=== PATIENT | male | born 1975 | race Caucasian/White ===

== ENCOUNTER 2019-07-25 14:35 | Outpatient (RCR) | payer MEDICAID, SELFPAY ==
[2019-07-25 15:05] VITALS: BP 118/90; PULSE 136; RESP 16; TEMP 37.4; BMI 20.5
--- NOTE | 2019-07-25 16:42 | PCM.WC.HP ---
(1) Diabetic ulcer of right foot with fat layer exposed Status: Acute Current Visit: Yes Code(s): E11.621 - Type 2 diabetes mellitus with foot ulcer; L97.512 - Non-pressure chronic ulcer of other part of right foot with fat layer exposed (2) Abscess of right foot Status: Acute Current Visit: Yes Code(s): L02.611 - Cutaneous abscess of right foot (3) Type 1 diabetes mellitus Status: Acute Current Visit: Yes Qualifiers: Diabetes mellitus complication status: with neurologic complications Diabetes mellitus complication detail: with polyneuropathy Qualified Code(s): E10.42 - Type 1 diabetes mellitus with diabetic polyneuropathy Code(s): E10.9 - Type 1 diabetes mellitus without complications (4) Tobacco abuse Status: Acute Current Visit: Yes Code(s): Z72.0 - Tobacco use (5) PVD (peripheral vascular disease) Status: Acute Current Visit: Yes Code(s): I73.9 - Peripheral vascular disease, unspecified (6) Cellulitis of right foot Status: Acute Current Visit: Yes Code(s): L03.115 - Cellulitis of right lower limb History of Present Illness Date of Service: 07/25/19 Chief Complaint: DFU with abscess and cellulitis right foot History of Wound: This is a 44-year-old white male who presents to the wound healing center today with complaint of diabetic foot ulcer to the right foot for the past couple of weeks that recently opened yesterday. He has a past medical history as listed above consistent that of uncontrolled type 1 diabetes mellitus currently being managed by an product responsibility liaison in [facility]. He was referred by his primary care provider. The patient states that he noted an ulceration on his right foot a couple weeks ago, however over the past couple of days it has been getting more reddened and tender and had opened up yesterday. He does state that due to his history of neuropathy he does not have sensation to his bilateral feet. He states that he followed up with his primary care who referred him to the wound center today. The patient does note that he does not wear diabetic shoes and that recently a couple months ago he started wearing a new pair shoes [employer] Jordans that have been more narrow and constricting on his feet. He states that yesterday he noted redness and warmth around the ulcer on his right foot. He denies any systemic signs of infection such as fever, chills, fatigue, nausea, or vomiting. He denies any [id number] treatment. He denies any other aggravating relieving factors. All other systems reviewed and negative with exception of those listed above. Past Medical History Allergies/Adverse Reactions: Allergies No Known Allergies Allergy (Verified 07/25/19 15:18) Home Medications: Ambulatory Orders Medication Instructions Recorded Gabapentin [Neurontin] 90 mg PO TID 07/25/19 Insulin Lispro [Admelog] See Protocol SQ TID PRN 07/25/19 Triceba 16 units SQ DAILY 07/25/19 Smoking Status: Current every day smoker Review of Systems Constitutional: Denies: Chills, Fever, Weight Change Eyes: Denies: Pain, Vision Change HEENT: Denies: Difficulty Hearing, Difficulty Swallowing, Sinus Congestion Cardiovascular: Denies: Chest Pain, Palpitations Respiratory: Denies: Cough, Shortness of Breath Gastrointestinal: Denies: Diarrhea, Nausea, Vomiting Genitourinary: Denies: Dysuria, Hematuria Skin: Reports: Wounds - see HPI Endocrine: Denies: Heat/ Cold Intolerance, Polydipsia, Polyuria Hematologic/ Lymphatic: Denies: Easy Bruising, Easy Bleeding - Physical Exam Vital Signs Temp Pulse Resp BP 99.3 F H 136 H 16 118/90 H 07/25/19 15:05 07/25/19 15:05 07/25/19 15:05 07/25/19 15:05 General: Alert, Oriented x3, Cooperative, No apparent distress HEENT: PERRLA, EOMI Oral: Moist Mucosa Neck: Supple Lungs: Clear to auscultation Cardiovascular: Regular rate Abdomen: Soft, Non Tender Extremities: No clubbing, No cyanosis, No edema, Peripheral Pulses Normal Skin: Ulcer/ Wound - Diabetic foot ulceration present to right lateral foot with fluctuance, tenderness, and surrounding erythema noted, center of the ulceration is open and draining purulent discharge, surrounding tissue is fluctuant consistent with that of an abscess, also surrounding area is erythematous and warm to touch consistent with cellulitis, no streaking noted at this time Wound Measurements and Assessment WC - Nurse 1 - General Ulcer Measurement Start: 07/25/19 15:04 Freq: Status: Active Protocol: Activity Type Activity Date Activity User E-Sign Co-Sign Detail Recorded Client Recorded Date Recorded By Document 07/25/19 15:05 BMF [id number] 07/25/19 15:15 [facility] 07/25/19 15:05 Wound Center Nurse 1 [Ulcer Assessment] #1- R LATERAL FOOT -Combined with other wound No -Current Size (cm) - Length 1.5 -Current Size (cm) - Width 1.6 -Current Size (cm) - Depth 0.1 -Total Square Cm 2.40 -Date of Last Picture (Recall this 07/25/19 field) -Photo Taken Yes -Epithelialization None Present -Tunneling No -Undermining/Tunneling No -Circular Undermining No -Exudate Amt Small -Exudate Type Purulent -Wound Margin Distinct, Outline Attached -Granulation Amt None Present (0 %) -Slough/Fibrin Yes -Necrosis Amt Large (67-100%) -Necrotic Tissue Type Eschar -Texture (Shanti-wound Skin Appearance) Assessed, Localized Edema ,Scarring -Moisture (Shanti-wound Skin Appearance Assessed ) -Color (Shanti-wound Skin Appearance) Assessed, Erythema -Temperature (Shanti-wound Skin No Abnormality Appearance) (Pt Warm) -Tenderness on Palpation (Shanti-wound Yes Skin Appearance) -Ulcer Cleansing Rinsed/ Irrigated with Saline -Foul Odor after Cleansing No -Anesthetic Used 5% Lidocaine Gel [Edema Assessment] -Lower Limb Edema Present Yes -Right Calf (cm) 33 -Right Ankle (cm) 20.5 -Left Calf (cm) 32.3 -Left Ankle (cm) 20.2 WC - Nurse 2 - General Ulcer CM Notes Start: 07/25/19 15:04 Freq: Status: Active Protocol: Activity Type Activity Date Activity User E-Sign Co-Sign Detail Recorded Client Recorded Date Recorded By Document 07/25/19 15:36 [id number] 07/25/19 15:38 07/25/19 15:36 Wound Center Nurse 2 [Procedure/Treatment] 2-right plantar -Time 15:55 -Correct Patient No -Correct Side, Site, Position No -Correct Procedure No -Procedure Performed No -Post Debridement Size (cm) - Length 1 -Post Debridement Size (cm) - Width 1 -Post Debridement Size (cm) - Depth 0.1 -Total Square Cm 1 -Wound/Ulcer Outcome Not Healed #1- R LATERAL FOOT -Time 15:37 -Correct Patient Yes -Correct Side, Site, Position Yes -Correct Procedure Yes -Procedure Performed Yes -Type of Procedure Debridement -Clinical Debridement Subcutaneous -Post Debridement Size (cm) - Length 1.5 -Post Debridement Size (cm) - Width 3.5 -Post Debridement Size (cm) - Depth 1.3 -Total Square Cm 5.25 -Wound/Ulcer Outcome Not Healed -Ulcer Cleansing Rinsed/ Irrigated with Saline -Foul Odor after Cleansing No -Bioengineered Tissue No -Bleeding Controlled with Pressure -Offloading Yes -Type of Offloading Surgical Shoe -Treatment Response Procedure Tolerated Well [See Physician Procedure note for Specifics] Pain Scale: 0-10 Numeric [Pain] -Is Patient Pain Free? Yes Neurological: Neuro grossly intact Psych/Mental Status: Normal Affect, Appropriate, Alert and oriented to time, place, person, mood and affect Debridement Note Post-Debridement Measurements/Treatment WC - Nurse 2 - General Ulcer CM Notes Start: 07/25/19 15:04 Freq: Status: Active Protocol: Activity Type Activity Date Activity User E-Sign Co-Sign Detail Recorded Client Recorded Date Recorded By Document 07/25/19 15:36 [id number] 07/25/19 15:38 DON 07/25/19 15:36 Wound Center Nurse 2 2-right plantar -Time 15:55 -Correct Patient No -Correct Side, Site, Position No -Correct Procedure No -Procedure Performed No -Post Debridement Size (cm) - Length 1 -Post Debridement Size (cm) - Width 1 -Post Debridement Size (cm) - Depth 0.1 -Total Square Cm 1 -Wound/Ulcer Outcome Not Healed #1- R LATERAL FOOT -Time 15:37 -Correct Patient Yes -Correct Side, Site, Position Yes -Correct Procedure Yes -Procedure Performed Yes -Type of Procedure Debridement -Clinical Debridement Subcutaneous -Post Debridement Size (cm) - Length 1.5 -Post Debridement Size (cm) - Width 3.5 -Post Debridement Size (cm) - Depth 1.3 -Total Square Cm 5.25 -Wound/Ulcer Outcome Not Healed -Ulcer Cleansing Rinsed/ Irrigated with Saline -Foul Odor after Cleansing No -Bioengineered Tissue No -Bleeding Controlled with Pressure -Offloading Yes -Type of Offloading Surgical Shoe -Treatment Response Procedure Tolerated Well Pain Scale: 0-10 Numeric Is Patient Pain Free? Yes Wound debrided: Diabetic foot ulcer Laterality: Right Type of Debridement: Excisional debridement Anesthesia Used: 4% Lidocaine Solution Depth: in the subcutaneous layer Percentage of wound debrided: 100 Instrument Used: 3mm curette Tissue Removed: Slough and devitalized tissue Severity: Fat Layer Exposed Amount of bleeding with debridement: Mild Bleeding Controlled with: Pressure Patient tolerated procedure well Assessment/Plan Active Problems Diabetic ulcer of right foot with fat layer exposed (Acute) Abscess of right foot (Acute) Type 1 diabetes mellitus (Acute) Tobacco abuse (Acute) PVD (peripheral vascular disease) (Acute) Cellulitis of right foot (Acute) Assessment: See above diagnoses Plan: The patient was seen and examined at the wound center today and was updated on the plan of care. A subcutaneous debridement was performed today. The patient tolerated the procedure well. The patients wound care will consist of: Application of silver cell daily over the diabetic foot ulcer with abscess and iodine to the plantar callused ulceration. Wound cultures were collected. X-ray of the foot ordered. Baseline bloodwork ordered. Vascular studies ordered. Patient given offloading postop shoe and instructed on the importance of offloading. Instructed on the importance of following up for diabetic shoes. Given information on following up with product responsibility liaison. Patient also started on Augmentin twice daily for 14 days and instructed patient that if any worsening of symptoms and if redness extends past the margins outlined on his foot from the cellulitis, that he should immediately go to the emergency department. Discussed red flag symptoms requiring urgent medical attention. Patient also educated on the options of pharmacologic management for his smoking cessation and to follow-up with PCP regarding this. Patient verbalized understanding. Patient educated on the importance of diet on wound healing and instructed to increase protein and vitamin C intake. Patient verbalized understanding. Patient will follow up at wound healing center in one week with transfer of care to podiatry due to the nature of his wound or sooner if needed. This note was generated with [employer] dictation software. It may contain incorrect words, spelling, and punctuation that were not noted in checking the note before signing. Code Visit Office Visits / Consults: [id number] OV L4 New [id number]: [id number] Bella subq tissue 20 sq cm/<
[2019-07-26 17:02] LABS: M R Staph aureus DNA By PCR Negative (Negative); Probe Check PASS; Specimen Processing Control PASS; Staph aureus DNA By PCR NEGATIVE (Negative)
== END 2019-07-27 23:59 ==
LOC: WC 14:35
PROVIDERS: PCP Nurse Practitioner Family; Referring Provider Nurse Practitioner Family; Visit Provider Nurse Practitioner Family
DX: E10.621 Type 1 diabetes mellitus with foot ulcer (principal); L97.512 Non-pressure chronic ulcer of other part of right foot with fat layer exposed; L02.611 Cutaneous abscess of right foot; L03.115 Cellulitis of right lower limb; E10.65 Type 1 diabetes mellitus with hyperglycemia; E10.51 Type 1 diabetes mellitus with diabetic peripheral angiopathy without gangrene; I73.9 Peripheral vascular disease, unspecified; F17.200 Nicotine dependence, unspecified, uncomplicated; Z79.4 Long term (current) use of insulin; Z79.899 Other long term (current) drug therapy
CPT/HCPCS: 11042; 87070; 87075; 87077; 87186; 87205; 87640; 99213; G0463

== ENCOUNTER 2019-08-21 09:30 | Outpatient (RCR) | payer MEDICAID, SELFPAY ==
[2019-07-28 01:12] VITALS: BP 118/90; PULSE 136; RESP 16; TEMP 37.4
[2019-07-31 11:43] VITALS: BP 114/72; PULSE 101; RESP 20; TEMP 36.5; BMI 20.5
--- NOTE | 2019-07-31 12:28 | PCM.WC.PN ---
(1) Edema of right lower extremity Status: Chronic Current Visit: Yes Code(s): R60.0 - Localized edema (2) Ulcer of right foot with fat layer exposed Status: Chronic Current Visit: Yes Code(s): L97.512 - Non-pressure chronic ulcer of other part of right foot with fat layer exposed (3) Pain of right lower extremity Status: Chronic Current Visit: Yes Code(s): M79.604 - Pain in right leg (4) Type 1 diabetes mellitus Status: Chronic Current Visit: Yes Qualifiers: Code(s): E10.9 - Type 1 diabetes mellitus without complications (5) PVD (peripheral vascular disease) Status: Suspected Current Visit: Yes Code(s): I73.9 - Peripheral vascular disease, unspecified (6) Cellulitis of right foot Status: Acute Current Visit: Yes Code(s): L03.115 - Cellulitis of right lower limb (7) Venous insufficiency of right leg Status: Chronic Current Visit: Yes Code(s): I87.2 - Venous insufficiency (chronic) (peripheral) Type of Wound Date of Service: 07/31/19 Chief Complaint: Right foot ulcer and cellulitis History of Wound: This is a 44-year-old white male who presents to the wound healing center today with complaint of diabetic foot ulcer to the right foot for the past couple of weeks. He has a past medical history as listed above consistent that of uncontrolled type 1 diabetes mellitus currently being managed by an gas processing plant operator in [facility]. He was referred by his primary care provider. He takes Augmentin and doxycycline as prescribed by Jamshid Pineda, clinical nurse practitioner. He has reduced swelling and redness and he denies odor. He does state that due to his history of neuropathy he does not have some altered sensation to his bilateral feet. He denies fever, chill, nausea, vomiting, loss of appetite. He did not get any of his vascular testing completed yet. He did obtain a foot x-ray at [facility]. He did not obtain his recommended lab work yet. He did not get his dressing supplies yet and asked for help getting this set up. Progress of Wound: improving - Physical Exam Vital Signs Temp Pulse Resp BP 97.7 F L 101 H 20 H 114/72 07/31/19 11:43 07/31/19 11:43 07/31/19 11:43 07/31/19 11:43 General: Alert, Oriented x3, Cooperative, No apparent distress Extremities: No cyanosis, Capillary Refill Less than 3 Seconds - All digits right foot, No Calf Tenderness - Negative Tyrell and Patel sign right, Diminished Peripheral Pulses - 2 out of 4 DP and 1 out of 4 PT, right, Edema - Right lower extremity and foot Skin: Ulcer/ Wound - His erythema has resolved and there is no streaking. There is no purulence on expression. The lateral foot ulcer site does probe to deep muscular tissue and not directly to the bone. The sub-fifth metatarsal head ulcer site does not probe to deep structures. His skin in general is atrophic, thin and with diminished hair to the foot. He does have hair on his leg. There is no odor. There is no mulugeta necrosis. Wound Measurements and Assessment WC - Nurse 1 - General Ulcer Measurement Start: 07/31/19 11:43 Freq: Status: Active Protocol: Activity Type Activity Date Activity User E-Sign Co-Sign Detail Recorded Client Recorded Date Recorded By Document 07/31/19 11:43 DL [id number] 07/31/19 11:52 DL 07/31/19 11:43 Wound Center Nurse 1 [Ulcer Assessment] 2-right plantar -Current Size (cm) - Length 0.7 -Current Size (cm) - Width 0.7 -Current Size (cm) - Depth 0.1 -Total Square Cm 0.49 -Photo Taken No -Exudate Amt None Present -Exudate Type Serosanguineous -Wound Margin Thickened -Granulation Amt None Present (0 %) -Necrosis Amt Large (67-100%) -Necrotic Tissue Type Eschar -Structure Exposed N/A -Texture (Shanti-wound Skin Appearance) Localized Edema -Moisture (Shanti-wound Skin Appearance Dry/Scaly ) -Color (Shanti-wound Skin Appearance) Erythema -Temperature (Shanti-wound Skin No Abnormality Appearance) (Pt Warm) -Tenderness on Palpation (Shanti-wound Yes Skin Appearance) -Ulcer Cleansing Rinsed/ Irrigated with Saline -Foul Odor after Cleansing No -Anesthetic Used 4% Lidocaine Solution,5% Lidocaine Gel #1- R LATERAL FOOT -Current Size (cm) - Length 2.5 -Current Size (cm) - Width 1.5 -Current Size (cm) - Depth 0.7 -Total Square Cm 3.75 -Photo Taken No -Exudate Amt Small -Exudate Type Serosanguineous -Wound Margin Distinct, Outline Attached -Granulation Amt Medium (34-66%) -Granulation Quality [place] -Necrosis Amt Medium (34-66%) -Necrotic Tissue Type Adherent Slough -Structure Exposed N/A -Texture (Shanti-wound Skin Appearance) Localized Edema -Moisture (Shanti-wound Skin Appearance Dry/Scaly ) -Color (Shanti-wound Skin Appearance) Erythema -Temperature (Shanti-wound Skin No Abnormality Appearance) (Pt Warm) -Tenderness on Palpation (Shanti-wound No Skin Appearance) -Ulcer Cleansing Rinsed/ Irrigated with Saline -Foul Odor after Cleansing No -Anesthetic Used 4% Lidocaine Solution,5% Lidocaine Gel WC - Nurse 2 - General Ulcer CM Notes Start: 07/31/19 11:43 Freq: Status: Active Protocol: Activity Type Activity Date Activity User E-Sign Co-Sign Detail Recorded Client Recorded Date Recorded By Document 07/31/19 12:12 DON [id number] 07/31/19 12:15 DON 07/31/19 12:12 Wound Center Nurse 2 [Procedure/Treatment] 2-right plantar -Time 12:13 -Correct Patient Yes -Correct Side, Site, Position Yes -Correct Procedure Yes -Procedure Performed Yes -Type of Procedure Debridement -Clinical Debridement Subcutaneous -Post Debridement Size (cm) - Length 0.7 -Post Debridement Size (cm) - Width 0.8 -Post Debridement Size (cm) - Depth 0.5 -Total Square Cm 0.56 -Wound/Ulcer Outcome Not Healed -Ulcer Cleansing Rinsed/ Irrigated with Saline -Foul Odor after Cleansing No -Bioengineered Tissue No -Bleeding Controlled with Pressure -Offloading Yes -Type of Offloading Wedge Shoe -Treatment Response Procedure Tolerated Well #1- R LATERAL FOOT -Time 12:13 -Correct Patient Yes -Correct Side, Site, Position Yes -Correct Procedure Yes -Procedure Performed Yes -Type of Procedure Debridement -Clinical Debridement Subcutaneous -Post Debridement Size (cm) - Length 2.5 -Post Debridement Size (cm) - Width 1.5 -Post Debridement Size (cm) - Depth 1.0 -Total Square Cm 3.75 -Wound/Ulcer Outcome Not Healed -Ulcer Cleansing Rinsed/ Irrigated with Saline -Foul Odor after Cleansing No -Bioengineered Tissue No -Bleeding Controlled with Pressure -Offloading Yes -Type of Offloading Wedge Shoe -Treatment Response Procedure Tolerated Well [See Physician Procedure note for Specifics] Pain Scale: 0-10 Numeric [Pain] -Is Patient Pain Free? Yes Musculoskeletal: No Tenderness to Palpation of Joints or Extremities, Muscle Wasting, - - Dorsal contracture lesser toes with prominent metatarsal heads and fifth metatarsal head, right. No bogginess or fluctuance on palpation to the ulcer and shanti-ulcer sites Neurological: - - Lack of epicritic sensation light touch is noted right foot Psych/Mental Status: Normal Affect, Appropriate Debridement Note Post-Debridement Measurements/Treatment WC - Nurse 2 - General Ulcer CM Notes Start: 07/31/19 11:43 Freq: Status: Active Protocol: Activity Type Activity Date Activity User E-Sign Co-Sign Detail Recorded Client Recorded Date Recorded By Document 07/31/19 12:12 DON [id number] 07/31/19 12:15 DON 07/31/19 12:12 Wound Center Nurse 2 2-right plantar -Time 12:13 -Correct Patient Yes -Correct Side, Site, Position Yes -Correct Procedure Yes -Procedure Performed Yes -Type of Procedure Debridement -Clinical Debridement Subcutaneous -Post Debridement Size (cm) - Length 0.7 -Post Debridement Size (cm) - Width 0.8 -Post Debridement Size (cm) - Depth 0.5 -Total Square Cm 0.56 -Wound/Ulcer Outcome Not Healed -Ulcer Cleansing Rinsed/ Irrigated with Saline -Foul Odor after Cleansing No -Bioengineered Tissue No -Bleeding Controlled with Pressure -Offloading Yes -Type of Offloading Wedge Shoe -Treatment Response Procedure Tolerated Well #1- R LATERAL FOOT -Time 12:13 -Correct Patient Yes -Correct Side, Site, Position Yes -Correct Procedure Yes -Procedure Performed Yes -Type of Procedure Debridement -Clinical Debridement Subcutaneous -Post Debridement Size (cm) - Length 2.5 -Post Debridement Size (cm) - Width 1.5 -Post Debridement Size (cm) - Depth 1.0 -Total Square Cm 3.75 -Wound/Ulcer Outcome Not Healed -Ulcer Cleansing Rinsed/ Irrigated with Saline -Foul Odor after Cleansing No -Bioengineered Tissue No -Bleeding Controlled with Pressure -Offloading Yes -Type of Offloading Wedge Shoe -Treatment Response Procedure Tolerated Well Pain Scale: 0-10 Numeric Is Patient Pain Free? Yes Wound debrided: plantar sub 5th metatarsal head ulcer Laterality: Right Wound Grade/Stage: grade 1 Type of Debridement: Excisional debridement Anesthesia Used: 5% Lidocaine Gel Depth: in the subcutaneous layer Percentage of wound debrided: 100 Instrument Used: #15 blade Tissue Removed: fibrous, devitalized subcuteaneous, biofilm, slough Severity: Fat Layer Exposed Amount of bleeding with debridement: Mild Bleeding Controlled with: Pressure Patient tolerated procedure well - Additional Wound Wound debrided: dorsal lateral forefoot Laterality: Left Wound Grade/Stage: grade 1 Type of Debridement: Excisional debridement Anesthesia Used: 5% Lidocaine Gel Depth: in the subcutaneous layer Percentage of wound debrided: 100 Instrument Used: #15 blade Tissue Removed: fibrous, devitalized subcuteaneous, biofilm, slough Severity: Fat Layer Exposed Amount of bleeding with debridement: Mild Bleeding Controlled with: Pressure Patient tolerated procedure: Patient tolerated procedure well Assessment/Plan Active Problems Type 1 diabetes mellitus (Chronic) Cellulitis of right foot (Acute) Edema of right lower extremity (Chronic) Ulcer of right foot with necrosis of muscle (Chronic) Ulcer of right foot with fat layer exposed (Chronic) Pain of right lower extremity (Chronic) Venous insufficiency of right leg (Chronic) Assessment: See above diagnoses Plan: The patient was seen and examined at the wound center today and was updated on the plan of care. A subcutaneous debridement was performed today. The patient tolerated the procedure well. The patients wound care will consist of: Application of silver cell daily to each ulcer site covered with additional 4 x 4 gauze, roll gauze, and further secured with tape. It is also okay to apply an Bernard wrap or Tubigrip for lower extremity compression. Wound cultures were collected. X-ray of the foot ordered. This was obtained at an outside facility and the report was read as negative for acute osseous destruction or soft tissue emphysema or fractures. I have requested the CD for image review. Baseline bloodwork ordered and this was not completed yet; he was encouraged to do so. Vascular studies ordered; this was not completed yet and he was advised to proceed forward with scheduling. Patient given offloading postop shoe and instructed on the importance of offloading. This shoe does not fit him properly. He relates his sister bought him a forefoot wedge offloading surgical shoe that he has at home. He was advised to wear this instead and to bring this in next week for modification. We will see if his gait is appropriate in this. If he is stable he can proceed with a wedge offloading shoe. If not, a cam walker boot can also be considered. Instructed on the importance of following up for diabetic shoes in the future to prevent pressure and additional ulcer formation.. Given information on following up with gas processing plant operator. He plans to see Dr. Sherman. Patient also started on Augmentin twice daily for 14 days and instructed patient that if any worsening of symptoms and if redness extends past the margins outlined on his foot from the cellulitis, that he should immediately go to the emergency department. Jamshid Pineda, clinical nurse practitioner also placed him on doxycycline per culture review. He was advised to complete these course and it appears his clinical infections have significantly resolved. Patient also educated on the options of pharmacologic management for his smoking cessation and to follow-up with PCP regarding this. Patient verbalized understanding. Patient educated on the importance of diet on wound healing and instructed to increase protein and vitamin C intake in addition to eating a whole food well-balanced diet. He is amendable to proceed with a nutrition consultation after we get through his other initial screening test. This patient verbalized understanding. Patient will follow up at wound healing center in one week. I answered all of his questions.
[2019-08-09 15:04] VITALS: BP 137/66; PULSE 95; RESP 16; TEMP 36.8; BMI 20.5
[2019-08-09 17:23] LABS: Hematocrit 45.5 % (40-54); Hemoglobin 14.6 g/dL (13.0-16.5); Mean Corp Hgb Conc 32.1 g/dL (32-36); Mean Corpuscular Hgb 28.7 pg (27.0-32.0); Mean Corpuscular Volume 89.6 fL (80-94); Mean Platelet Vol. 9.8 fl (6.2-12.0); Platelet Count 383 K/mm3 (150-450); RBC Distribution Width CV 14.5 % (11.6-14.6); RBC Distribution Width SD 47.4 fl (35.1-43.9); Red Blood Count 5.08 M/mm3 (4.6-6.2); White Blood Count 6.7 K/mm3 (4.4-11.0)
[2019-08-09 17:52] LABS: Erythrocyte Sedimentation Rate 20 mm/hr (0-15)
[2019-08-09 18:11] LABS: Hemoglobin A1c 9.4 % (4.2-6.3)
--- NOTE | 2019-08-09 18:21 | PCM.WC.PN ---
(1) Type 1 diabetes mellitus Status: Chronic Current Visit: Yes Qualifiers: Diabetes mellitus complication status: with skin complications Diabetes mellitus complication detail: with foot ulcer Qualified Code(s): E10.621 - Type 1 diabetes mellitus with foot ulcer; L97.509 - Non-pressure chronic ulcer of other part of unspecified foot with unspecified severity Code(s): E10.9 - Type 1 diabetes mellitus without complications (2) Ulcer of right foot with fat layer exposed Status: Chronic Current Visit: Yes Code(s): L97.512 - Non-pressure chronic ulcer of other part of right foot with fat layer exposed (3) Ulcer of right foot with necrosis of muscle Status: Chronic Current Visit: Yes Code(s): L97.513 - Non-pressure chronic ulcer of other part of right foot with necrosis of muscle (4) Diabetic ulcer of right foot with fat layer exposed Status: Acute Current Visit: Yes Qualifiers: Diabetic foot ulcer location: midfoot Diabetes mellitus type: type 1 Qualified Code(s): E10.621 - Type 1 diabetes mellitus with foot ulcer; L97.412 - Non-pressure chronic ulcer of right heel and midfoot with fat layer exposed Code(s): E11.621 - Type 2 diabetes mellitus with foot ulcer; L97.512 - Non-pressure chronic ulcer of other part of right foot with fat layer exposed Type of Wound Date of Service: 08/11/19 Chief Complaint: Right foot ulcer and cellulitis History of Wound: This is a 44-year-old white male who presents to the wound healing center today with complaint of diabetic foot ulcer to the right foot for the past couple of weeks. He has a past medical history as listed above consistent that of uncontrolled type 1 diabetes mellitus currently being managed by an crop puller in [facility]. He was referred by his primary care provider. He takes Augmentin and doxycycline as prescribed by Jamshid Pineda, clinical nurse practitioner. He has reduced swelling and redness and he denies odor. He does state that due to his history of neuropathy he does not have some altered sensation to his bilateral feet. He denies fever, chill, nausea, vomiting, loss of appetite. He did not get any of his vascular testing completed yet. He did obtain a foot x-ray at [facility]. He did not obtain his recommended lab work yet. He did not get his dressing supplies yet and asked for help getting this set up. Progress of Wound: This is a courtesy visit for Dr. Parada. Deep is here for a follow up of diabetic foot ulcers of his right foot. He did do xray which did not indicate any acute osteomyelitis but he has not scheduled with endocrinology or completed vascular testing or completed labs. He has been wearing a wedge offloading shoe and dressing his wounds. He is nearly finished with antibiotics - doxycycline and augmentin. He notes improvement in his ulcers and denies any fever, chills, increased drainage or increased pain. - Physical Exam Vital Signs Temp Pulse Resp BP 98.2 F 95 16 137/66 H 08/09/19 15:04 08/09/19 15:04 08/09/19 15:04 08/09/19 15:04 General: Alert, Oriented x3, Cooperative, No apparent distress HEENT: Atraumatic, Normocephalic Oral: Moist Mucosa Extremities: No edema Skin: Ulcer/ Wound Wound Measurements and Assessment WC - Nurse 1 - General Ulcer Measurement Start: 07/31/19 11:43 Freq: Status: Active Protocol: Activity Type Activity Date Activity User E-Sign Co-Sign Detail Recorded Client Recorded Date Recorded By Document 08/09/19 15:04 [facility] [id number] 08/09/19 15:09 [facility] 08/09/19 15:04 Wound Center Nurse 1 [Ulcer Assessment] 2-right plantar -Combined with other wound No -Current Size (cm) - Length 0.3 -Current Size (cm) - Width 0.4 -Current Size (cm) - Depth 0.1 -Total Square Cm 0.12 -Photo Taken No -Epithelialization None Present -Tunneling No -Undermining/Tunneling No -Circular Undermining No -Exudate Amt None Present -Granulation Amt None Present (0 %) -Slough/Fibrin Yes -Necrosis Amt Small (1-33%) -Necrotic Tissue Type Adherent Slough -Texture (Shanti-wound Skin Appearance) Callus,Scarring -Moisture (Shanti-wound Skin Appearance Assessed,Dry/ ) Scaly -Color (Shanti-wound Skin Appearance) Assessed -Temperature (Shanti-wound Skin No Abnormality Appearance) (Pt Warm) -Tenderness on Palpation (Shanti-wound No Skin Appearance) -Ulcer Cleansing Rinsed/ Irrigated with Saline -Foul Odor after Cleansing No -Anesthetic Used 4% Lidocaine Solution #1- R LATERAL FOOT -Combined with other wound No -Current Size (cm) - Length 0.5 -Current Size (cm) - Width 0.5 -Current Size (cm) - Depth 0.2 -Total Square Cm 0.25 -Photo Taken No -Epithelialization None Present -Tunneling No -Undermining/Tunneling No -Circular Undermining No -Exudate Amt Small -Exudate Type Serosanguineous -Wound Margin Distinct, Outline Attached -Granulation Amt Medium (34-66%) -Granulation Quality Red -Slough/Fibrin Yes -Necrosis Amt Medium (34-66%) -Necrotic Tissue Type Adherent Slough -Texture (Shanti-wound Skin Appearance) Assessed, Scarring -Moisture (Shanti-wound Skin Appearance Assessed ) -Color (Shanti-wound Skin Appearance) Assessed, Erythema -Temperature (Shanti-wound Skin No Abnormality Appearance) (Pt Warm) -Tenderness on Palpation (Shanti-wound Yes Skin Appearance) -Ulcer Cleansing Rinsed/ Irrigated with Saline -Foul Odor after Cleansing No -Anesthetic Used 4% Lidocaine Solution WC - Nurse 2 - General Ulcer CM Notes Start: 07/31/19 11:43 Freq: Status: Active Protocol: Activity Type Activity Date Activity User E-Sign Co-Sign Detail Recorded Client Recorded Date Recorded By Document 08/09/19 16:04 DV [id number] 08/09/19 16:16 DV 08/09/19 16:04 Wound Center Nurse 2 [Procedure/Treatment] 2-right plantar -Time 16:04 -Correct Patient Yes -Correct Side, Site, Position Yes -Correct Procedure Yes -Procedure Performed Yes -Type of Procedure Debridement -Clinical Debridement Subcutaneous -Post Debridement Size (cm) - Length 0.3 -Post Debridement Size (cm) - Width 0.3 -Post Debridement Size (cm) - Depth 0.2 -Total Square Cm 0.09 -Wound/Ulcer Outcome Not Healed -Ulcer Cleansing Rinsed/ Irrigated with Saline -Foul Odor after Cleansing No -Bioengineered Tissue No -Bleeding Controlled with Pressure -Offloading Yes -Treatment Response Procedure Tolerated Well #1- R LATERAL FOOT -Time 16:05 -Correct Patient Yes -Correct Side, Site, Position Yes -Correct Procedure Yes -Procedure Performed Yes -Type of Procedure Debridement -Clinical Debridement Subcutaneous -Post Debridement Size (cm) - Length 0.5 -Post Debridement Size (cm) - Width 0.5 -Post Debridement Size (cm) - Depth 0.9 -Total Square Cm 0.25 -Wound/Ulcer Outcome Not Healed -Ulcer Cleansing Rinsed/ Irrigated with Saline -Foul Odor after Cleansing No -Bioengineered Tissue No -Bleeding Controlled with Pressure -Offloading Yes -Treatment Response Procedure Tolerated Well [See Physician Procedure note for Specifics] Pain Scale: 0-10 Numeric [Pain] -Is Patient Pain Free? Yes Psych/Mental Status: Normal Affect, Appropriate Debridement Note Post-Debridement Measurements/Treatment WC - Nurse 2 - General Ulcer CM Notes Start: 07/31/19 11:43 Freq: Status: Active Protocol: Activity Type Activity Date Activity User E-Sign Co-Sign Detail Recorded Client Recorded Date Recorded By Document 07/31/19 12:12 DON [id number] 07/31/19 12:15 Document 08/09/19 16:04 DV [id number] 08/09/19 16:16 DV 07/31/19 08/09/19 12:12 16:04 Wound Center Nurse 2 2-right plantar -Time 12:13 16:04 -Correct Patient Yes Yes -Correct Side, Site, Position Yes Yes -Correct Procedure Yes Yes -Procedure Performed Yes Yes -Type of Procedure Debridement Debridement -Clinical Debridement Subcutaneous Subcutaneous -Post Debridement Size (cm) - Length 0.7 0.3 -Post Debridement Size (cm) - Width 0.8 0.3 -Post Debridement Size (cm) - Depth 0.5 0.2 -Total Square Cm 0.56 0.09 -Wound/Ulcer Outcome Not Healed Not Healed -Ulcer Cleansing Rinsed/ Rinsed/ Irrigated with Irrigated with Saline Saline -Foul Odor after Cleansing No No -Bioengineered Tissue No No -Bleeding Controlled with Pressure Pressure -Offloading Yes Yes -Type of Offloading Wedge Shoe -Treatment Response Procedure Procedure Tolerated Well Tolerated Well #1- R LATERAL FOOT -Time 12:13 16:05 -Correct Patient Yes Yes -Correct Side, Site, Position Yes Yes -Correct Procedure Yes Yes -Procedure Performed Yes Yes -Type of Procedure Debridement Debridement -Clinical Debridement Subcutaneous Subcutaneous -Post Debridement Size (cm) - Length 2.5 0.5 -Post Debridement Size (cm) - Width 1.5 0.5 -Post Debridement Size (cm) - Depth 1.0 0.9 -Total Square Cm 3.75 0.25 -Wound/Ulcer Outcome Not Healed Not Healed -Ulcer Cleansing Rinsed/ Rinsed/ Irrigated with Irrigated with Saline Saline -Foul Odor after Cleansing No No -Bioengineered Tissue No No -Bleeding Controlled with Pressure Pressure -Offloading Yes Yes -Type of Offloading Wedge Shoe -Treatment Response Procedure Procedure Tolerated Well Tolerated Well Pain Scale: 0-10 Numeric Is Patient Pain Free? Yes Yes Wound debrided: right plantar Laterality: Right Wound Grade/Stage: Grade 1 Type of Debridement: Excisional debridement Anesthesia Used: 4% Lidocaine Solution, 5% Lidocaine Gel Depth: Down to and including healthy tissue, in the subcutaneous layer Percentage of wound debrided: 100 Instrument Used: 3mm curette Tissue Removed: yellow slough, devitalized tissue Severity: Fat Layer Exposed Amount of bleeding with debridement: Mild Bleeding Controlled with: Compression and gauze Patient tolerated procedure well - Additional Wound Wound debrided: right lateral foot Laterality: Right Wound Grade/Stage: Grade 2 Type of Debridement: Excisional debridement Anesthesia Used: 4% Lidocaine Solution Depth: Down to and including healthy tissue, in the subcutaneous layer, to muscle Percentage of wound debrided: 100 Instrument Used: 3mm curette Tissue Removed: yellow slough, devitalized tissue Severity: Fat Layer Exposed Amount of bleeding with debridement: Mild Bleeding Controlled with: Compression and gauze Patient tolerated procedure: Patient tolerated procedure well Assessment/Plan Active Problems Diabetic ulcer of right foot with fat layer exposed (Acute) Type 1 diabetes mellitus (Chronic) Cellulitis of right foot (Acute) Edema of right lower extremity (Chronic) Ulcer of right foot with necrosis of muscle (Chronic) Ulcer of right foot with fat layer exposed (Chronic) Pain of right lower extremity (Chronic) Venous insufficiency of right leg (Chronic) Assessment: See above diagnoses Plan: The patient was seen and examined at the wound center today and was updated on the plan of care. A subcutaneous debridement was performed today. The patient tolerated the procedure well. The patients wound care will consist of: Application of silver cell daily to each ulcer site covered with additional 4 x 4 gauze, roll gauze, and further secured with tape. It is also okay to apply an Bernard wrap or Tubigrip for lower extremity compression. Xray of foot reviewed. This was obtained at an outside facility and the report was read as negative for acute osseous destruction or soft tissue emphysema or fractures. Requested the CD for image review. Baseline bloodwork ordered and this was drawn today. Vascular studies ordered; this was not completed yet and he was advised to proceed forward with scheduling. He was advised to wear forefoot offloading wedge shoe and to bring this in next week for modification. If not, a cam walker boot can also be considered. Instructed on the importance of following up for diabetic shoes in the future to prevent pressure and additional ulcer formation.. Given information on following up with crop puller. He plans to see Dr. Sherman. Patient instructed to complete antibiotics. Instructed patient that if any worsening of symptoms and if redness extends past the margins outlined on his foot from the cellulitis, that he should immediately go to the emergency department. Patient also educated on the options of pharmacologic management for his smoking cessation and to follow-up with PCP regarding this. Patient verbalized understanding. Patient educated on the importance of diet on wound healing and instructed to increase protein and vitamin C intake in addition to eating a whole food well-balanced diet. He is amendable to proceed with a nutrition consultation after we get through his other initial screening test. This patient verbalized understanding. Patient will follow up at wound healing center in one week.
[2019-08-09 18:23] LABS: CRP < 2.90 mg/L (0.0-3.0); Prealbumin 19.1 mg/dL (20.0-40.0)
--- NOTE | 2019-08-21 10:01 | VDLE_ITS ---
Reason For Study: Pain RIGHT LEFT CFV is compressible, spontaneous, phasic, CFV is compressible, spontaneous, phasic, competent and demonstrates normal competent, and demonstrates normal augmentation. augmentation. FV is compressible, spontaneous, phasic, FV is compressible, spontaneous, phasic, competent and demonstrates normal competent and demonstrates normal augmentation. augmentation. POP V is compressible, spontaneous, phasic, POP V is compressible, spontaneous, phasic, competent and demonstrates normal competent and demonstrates normal augmentation. augmentation. T/P Trunk is compressible. T/P Trunk is compressible. PTV is compressible. PTV is compressible. RT PerV is compressible. LT PerV is compressible. SFJ is competent and measures 0.53 x 0.63 cm. SFJ is INCOMPETENT and measures 0.55 x 0.46 GSV proximal thigh measures 0.33 x 0.35 cm. cm. GSV above knee is competent. GSV proximal thigh measures 0.29 x 0.32 cm. GSV at knee measures 0.40 x 0.47 cm. GSV at knee measures 0.28 x 0.27 cm. GSV is INCOMPETENT at knee for greater than GSV is competent throughout. 0.5 seconds. SSV at junction is competent and measures GSV below knee is competent. 0.32 x 0.35 cm. SSV at junction is competent and measures 0.23 x 0.25 cm. Procedure Exam performed in department. A preliminary report was called and/or faxed to . Interpretation Summary Deep veins of the lower extremities are bilaterally patent and compressible segmentally. There is no evidence of deep vein thrombosis on either side. Valvular competence appears intact within the proximal deep venous systems bilaterally. The great saphenous veins appear bilaterally patent and compressible segmentally. The right sapheno-femoral junction is competent . The left sapheno-femoral junction is incompetent . The right great saphenous vein appears competent above the knee. The right great saphenous vein is incompetent at knee level. The right great saphenous vein appears competent below the knee. The left great saphenous vein appears segmentally competent. Small saphenous veins are patent and competent bilaterally. Ordering Physician: Jamshid Pineda Referring Physician: Viridiana Lebron Performed By: Anna Arnold RVT
--- NOTE | 2019-08-21 10:02 | ART_ITS ---
Reason For Study: Ulcer Procedure A bilateral lower extremity continuous wave Doppler with analog waveform analysis,segmental pressures,and ankle brachial indexes without exercise. Left Segmental Pressures Left brachial= 126mmHg. Left posterior tibial artery = 139mmHg. Left dorsalis pedis artery = 143mmHg. Left digit = 114 mmHg. The left dorsalis pedis waveforms are triphasic. The left posterior tibial artery waveforms are triphasic. Right Segmental Pressures Right brachial= 131mmHg. Right posterior tibial artery = 138mmHg. Right dorsalis pedis artery = 133mmHg. Right digit = 101 mmHg. The right dorsalis pedis waveforms are triphasic. The right posterior tibial artery waveforms are triphasic. Indices The right ankle brachial index by the dorsalis pedis is 1.02. The right ankle brachial index by the posterior tibial artery is 1.05. The right digital-brachial index is 0.77. The left ankle brachial index by the dorsalis pedis is 1.09. The left ankle brachial index by the posterior tibial artery is 1.06. The left digital-brachial index is 0.87. Interpretation Summary Triphasic Doppler waveforms are noted at ankle level bilaterally. Pulse-volume recording waveform amplitudes appear diminished at digital level on the right, but satisfactory at all other levels bilaterally. Resting ankle-brachial indices are normal bilaterally. Digital-brachial indices are normal bilaterally. There is no evidence of significant arterial occlusive disease in the lower extremities bilaterally. Ordering Physician: Jamshid Pineda Referring Physician: Viridiana Lebron Performed By: Anna Arnold RVT
[2019-08-21 11:02] VITALS: BMI 20.5
[2019-08-21 11:07] VITALS: BP 128/80; PULSE 107; RESP 14; TEMP 36.8; BMI 20.5
--- NOTE | 2019-08-21 11:37 | PCM.WC.PN ---
(1) Edema of right lower extremity Status: Chronic Current Visit: Yes Code(s): R60.0 - Localized edema (2) Ulcer of right foot with fat layer exposed Status: Resolved Current Visit: Yes Code(s): L97.512 - Non-pressure chronic ulcer of other part of right foot with fat layer exposed (3) Pain of right lower extremity Status: Chronic Current Visit: Yes Code(s): M79.604 - Pain in right leg (4) Type 1 diabetes mellitus Status: Chronic Current Visit: Yes Qualifiers: Diabetes mellitus complication status: with skin complications Diabetes mellitus complication detail: with foot ulcer Qualified Code(s): E10.621 - Type 1 diabetes mellitus with foot ulcer; L97.509 - Non-pressure chronic ulcer of other part of unspecified foot with unspecified severity Code(s): E10.9 - Type 1 diabetes mellitus without complications (5) PVD (peripheral vascular disease) Status: Ruled-out Current Visit: Yes Code(s): I73.9 - Peripheral vascular disease, unspecified (6) Cellulitis of right foot Status: Resolved Current Visit: Yes Code(s): L03.115 - Cellulitis of right lower limb Type of Wound Date of Service: 08/21/19 Chief Complaint: Right foot ulcer and cellulitis History of Wound: This is a 44-year-old white male who presents to the wound healing center today with complaint of diabetic foot ulcer to the right foot for the past couple of weeks. He has a past medical history as listed above consistent that of uncontrolled type 1 diabetes mellitus currently being managed by an diesel mechanic apprentice in [facility]. He completed a course of Augmentin and doxycycline as prescribed by Jamshid Pineda, clinical nurse practitioner. He has reduced swelling and redness and he denies odor. He denies drainage the past couple of days. He denies fever, chill, nausea, vomiting, redness, odor. He had his noninvasive vascular studies completed this morning. He would like to review the results. He relates he does the cooking at his house and going to a nutrition referral is not for him. Progress of Wound: Healed - Physical Exam Vital Signs Temp Pulse Resp BP 98.3 F 107 H 14 128/80 H 08/21/19 11:07 08/21/19 11:07 08/21/19 11:07 08/21/19 11:07 General: Alert, Oriented x3, Cooperative, No apparent distress Extremities: No cyanosis, Capillary Refill Less than 3 Seconds, No Calf Tenderness, Diminished Peripheral Pulses, Edema Skin: Ulcer/ Wound - Full epithelialization is noted. No purulence, erythema, streaking, odor, infection Wound Measurements and Assessment WC - Nurse 1 - General Ulcer Measurement Start: 07/31/19 11:43 Freq: Status: Active Protocol: Activity Type Activity Date Activity User E-Sign Co-Sign Detail Recorded Client Recorded Date Recorded By Document 08/21/19 11:02 CS [id number] 08/21/19 11:07 CS 08/21/19 11:02 Wound Center Nurse 1 [Ulcer Assessment] 2-right plantar -Combined with other wound No -Current Size (cm) - Length 0.1 -Current Size (cm) - Width 0.1 -Current Size (cm) - Depth 0.1 -Total Square Cm 0.01 -Photo Taken No -Epithelialization None Present -Tunneling No -Undermining/Tunneling No -Circular Undermining No -Necrotic Tissue Type Eschar -Temperature (Shanti-wound Skin No Abnormality Appearance) (Pt Warm) -Tenderness on Palpation (Shanti-wound No Skin Appearance) -Ulcer Cleansing Rinsed/ Irrigated with Saline -Foul Odor after Cleansing No -Anesthetic Used 4% Lidocaine Solution #1- R LATERAL FOOT -Combined with other wound No -Current Size (cm) - Length 0.1 -Current Size (cm) - Width 0.1 -Current Size (cm) - Depth 0.1 -Total Square Cm 0.01 -Photo Taken No -Epithelialization None Present -Tunneling No -Undermining/Tunneling No -Circular Undermining No -Necrotic Tissue Type Eschar -Temperature (Shanti-wound Skin No Abnormality Appearance) (Pt Warm) -Tenderness on Palpation (Shanti-wound No Skin Appearance) -Ulcer Cleansing Rinsed/ Irrigated with Saline -Foul Odor after Cleansing No -Anesthetic Used 4% Lidocaine Solution [Edema Assessment] -Lower Limb Edema Present NA WC - Nurse 2 - General Ulcer CM Notes Start: 07/31/19 11:43 Freq: Status: Active Protocol: Activity Type Activity Date Activity User E-Sign Co-Sign Detail Recorded Client Recorded Date Recorded By Document 08/21/19 11:28 JF [id number] 08/21/19 11:34 JF 08/21/19 11:28 Wound Center Nurse 2 [Procedure/Treatment] 2-right plantar -Correct Patient No -Correct Side, Site, Position No -Correct Procedure No -Procedure Performed No -Post Debridement Size (cm) - Length 0 -Post Debridement Size (cm) - Width 0 -Post Debridement Size (cm) - Depth 0 -Total Square Cm 0 -Wound/Ulcer Outcome Healed- Epithelialized #1- R LATERAL FOOT -Correct Patient No -Correct Side, Site, Position No -Correct Procedure No -Procedure Performed No -Post Debridement Size (cm) - Length 0 -Post Debridement Size (cm) - Width 0 -Post Debridement Size (cm) - Depth 0 -Total Square Cm 0 -Wound/Ulcer Outcome Healed- Epithelialized [See Physician Procedure note for Specifics] Pain Scale: 0-10 Numeric [Pain] -Is Patient Pain Free? Yes Musculoskeletal: No Tenderness to Palpation of Joints or Extremities, Muscle Wasting Neurological: - - Lack of epicritic sensation Psych/Mental Status: Normal Affect, Appropriate Debridement Note Post-Debridement Measurements/Treatment WC - Nurse 2 - General Ulcer CM Notes Start: 07/31/19 11:43 Freq: Status: Active Protocol: Activity Type Activity Date Activity User E-Sign Co-Sign Detail Recorded Client Recorded Date Recorded By Document 07/31/19 12:12 [id number] 07/31/19 12:15 Document 08/09/19 16:04 DV [id number] 08/09/19 16:16 DV Document 08/21/19 11:28 [id number] 08/21/19 11:34 07/31/19 08/09/19 08/21/19 12:12 16:04 11:28 Wound Center Nurse 2 2-right plantar -Time 12:13 16:04 -Correct Patient Yes Yes No -Correct Side, Site, Position Yes Yes No -Correct Procedure Yes Yes No -Procedure Performed Yes Yes No -Type of Procedure Debridement Debridement -Clinical Debridement Subcutaneous Subcutaneous -Post Debridement Size (cm) - Length 0.7 0.3 0 -Post Debridement Size (cm) - Width 0.8 0.3 0 -Post Debridement Size (cm) - Depth 0.5 0.2 0 -Total Square Cm 0.56 0.09 0 -Wound/Ulcer Outcome Not Healed Not Healed Healed- Epithelialized -Ulcer Cleansing Rinsed/ Rinsed/ Irrigated with Irrigated with Saline Saline -Foul Odor after Cleansing No No -Bioengineered Tissue No No -Bleeding Controlled with Pressure Pressure -Offloading Yes Yes -Type of Offloading Wedge Shoe -Treatment Response Procedure Procedure Tolerated Well Tolerated Well #1- R LATERAL FOOT -Time 12:13 16:05 -Correct Patient Yes Yes No -Correct Side, Site, Position Yes Yes No -Correct Procedure Yes Yes No -Procedure Performed Yes Yes No -Type of Procedure Debridement Debridement -Clinical Debridement Subcutaneous Subcutaneous -Post Debridement Size (cm) - Length 2.5 0.5 0 -Post Debridement Size (cm) - Width 1.5 0.5 0 -Post Debridement Size (cm) - Depth 1.0 0.9 0 -Total Square Cm 3.75 0.25 0 -Wound/Ulcer Outcome Not Healed Not Healed Healed- Epithelialized -Ulcer Cleansing Rinsed/ Rinsed/ Irrigated with Irrigated with Saline Saline -Foul Odor after Cleansing No No -Bioengineered Tissue No No -Bleeding Controlled with Pressure Pressure -Offloading Yes Yes -Type of Offloading Wedge Shoe -Treatment Response Procedure Procedure Tolerated Well Tolerated Well Pain Scale: 0-10 Numeric Is Patient Pain Free? Yes Yes Yes Wound debrided: plantar and lateral foot Laterality: Right No debridement was completed today - healed today Assessment/Plan Active Problems Diabetic ulcer of right foot with fat layer exposed (Acute) Type 1 diabetes mellitus (Chronic) Edema of right lower extremity (Chronic) Ulcer of right foot with necrosis of muscle (Chronic) Pain of right lower extremity (Chronic) Venous insufficiency of right leg (Chronic) Assessment: See above diagnoses Plan: The patient was seen and examined at the wound center today and was updated on the plan of care. Debridement was not performed today because the ulcer site has healed. He was advised to discontinue dressing care. He was advised to continue with his forefoot offloading shoe for an additional week and then transition to a properly fitted shoe and lengthen with. He will return to the wound healing center in 2 weeks for healed wound check. He obtained his noninvasive vascular studies this morning and had triphasic waveforms and normal ABIs. It is noted his hemoglobin A1c was 9.4% and he is at high risk for re-ulceration other medical complications due to his elevated glucose levels. I recommended he follows up as scheduled with diesel mechanic apprentice, Dr. Sherman and also his primary care physician. I also recommended a nutrition referral and he defers today. I answered all his questions. To monitor his foot closely for reoccurrence of the ulcer or infection. He was advised to call the Center as soon as possible if these things are noted.
== END 2019-08-27 23:59 ==
LOC: WC 09:30
PROVIDERS: PCP Nurse Practitioner Family; Referring Provider Nurse Practitioner Family; Visit Provider Nurse Practitioner Family
DX: E10.621 Type 1 diabetes mellitus with foot ulcer (principal); L97.512 Non-pressure chronic ulcer of other part of right foot with fat layer exposed; L97.513 Non-pressure chronic ulcer of other part of right foot with necrosis of muscle; L03.115 Cellulitis of right lower limb; E10.65 Type 1 diabetes mellitus with hyperglycemia; E10.40 Type 1 diabetes mellitus with diabetic neuropathy, unspecified; R60.0 Localized edema; I87.2 Venous insufficiency (chronic) (peripheral); Z79.4 Long term (current) use of insulin; Z79.899 Other long term (current) drug therapy
CPT/HCPCS: 11042; 83036; 84134; 85027; 85652; 86140; 93923; 93970; 99213; G0463

== ENCOUNTER 2019-09-11 08:05 | Outpatient (RCR) | payer MEDICAID, SELFPAY ==
[2019-08-28 00:53] VITALS: BP 128/80; PULSE 107; RESP 14; TEMP 36.8
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
== END 2019-09-26 23:59 ==
LOC: WC 08:05
PROVIDERS: PCP Nurse Practitioner Family; Referring Provider Nurse Practitioner Family; Visit Provider Podiatrist
DX: Z09 Encounter for follow-up examination after completed treatment for conditions other than malignant neoplasm (principal); M79.89 Other specified soft tissue disorders; E10.9 Type 1 diabetes mellitus without complications

== ENCOUNTER 2019-10-23 09:01 | Outpatient (RCR) | payer MEDICAID, SELFPAY ==
[2019-09-27 00:17] VITALS: BP 128/80; PULSE 107; RESP 14; TEMP 36.8
[2019-10-09 10:31] VITALS: BMI 20.5
[2019-10-23 09:15] VITALS: RESP 18; TEMP 36.8; BMI 20.5
--- NOTE | 2019-10-23 12:14 | HP.PCM_ITS ---
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: Acute Current Visit: Yes Code(s): L97.512 - Non-pressure chronic ulcer of other part of right foot with fat layer exposed (2) Type 1 diabetes mellitus Status: Chronic Current Visit: Yes Qualifiers: Code(s): E10.9 - Type 1 diabetes mellitus without complications (3) Tobacco abuse Status: Acute Current Visit: Yes Code(s): Z72.0 - Tobacco use (4) Cellulitis of right foot Status: Resolved Current Visit: Yes Code(s): L03.115 - Cellulitis of right lower limb (5) Pain of right lower extremity Status: Chronic Current Visit: Yes Code(s): M79.604 - Pain in right leg History of Present Illness Date of Service: 10/23/19 Chief Complaint: Right foot ulcer and cellulitis History of Wound: This is a 44-year-old white male was seen in clinic today for a return right foot ulcer. He relates it was red and painful last week and then started draining this past Monday. He went to [facility] in which she relates foot x-rays and blood cultures were obtained. He is not sure if he had additional blood work drawn or cultures of the wound itself. He relates he is more active this past week when his kids were in town. He usually wears [employer] shoes. He denies other specific injuries. He denies current fever, chill, nausea, vomiting. He rates his pain as an 8 out of 10 sharp. He relates his blood sugars are usually around 110-115. However, he relates he ate a snack real late last night and his blood sugar was 306 mg/dL this morning. He relates he is taking amoxicillin and doxycycline. Past Medical History Past Medical History: Chronic Problems Type 1 diabetes mellitus (Chronic) Edema of right lower extremity (Chronic) Pain of right lower extremity (Chronic) Venous insufficiency of right leg (Chronic) Past Medical History: Depression. Right upper extremity injuries and surgical repair Surgical History: - Allergies/Adverse Reactions: Allergies No Known Allergies Allergy (Verified 07/25/19 15:18) Home Medications: Ambulatory Orders Medication Instructions Recorded Gabapentin [Neurontin] 90 mg PO TID 07/25/19 Insulin Lispro [Admelog] See Protocol SQ TID PRN 07/25/19 Triceba 16 units SQ DAILY 07/25/19 doxycycline monohydrate 100 mg 100 mg PO BID #20 cap 07/26/19 capsule Lives: With Family Smoking Status: Current every day smoker Review of Systems Constitutional: Denies: Chills, Fever Cardiovascular: Denies: Chest Pain, Claudication Respiratory: Denies: Cough, Shortness of Breath Gastrointestinal: Denies: Nausea, Vomiting Musculoskeletal: Reports: Foot Pain Skin: Reports: Skin Changes, Wounds Neurological: Denies: Numbness, Tingling - Physical Exam Vital Signs Temp Pulse Resp BP 98.2 F 107 H 18 128/80 H 10/23/19 09:15 09/27/19 00:17 10/23/19 09:15 09/27/19 00:17 General: Alert, Oriented x3, Cooperative, No apparent distress HEENT: Atraumatic Extremities: No cyanosis, Capillary Refill Less than 3 Seconds, No Calf Tenderness, Diminished Peripheral Pulses, Edema Skin: Ulcer/ Wound - No purulence, odor, necrosis, eschar. There is erythema that seems to be decreased intensity per the patient and also location per the marked area on his foot. There is a callus sub-fifth metatarsal head which upon debridement there is a skin discontinuity with some sero-purulent drainage expressed. After irrigation and debridement this is no longer noted. There is no direct probe to bone. There is also skin discontinuity to the dorsal lateral fifth metatarsal head area. There is no interdigital maceration. Adjacent skin is hairless and atrophic. Wound Measurements and Assessment WC - Nurse 1 - General Ulcer Measurement Start: 10/23/19 09:10 Freq: Status: Active Protocol: Activity Type Activity Date Activity User E-Sign Co-Sign Detail Recorded Client Recorded Date Recorded By Document 10/23/19 09:15 DV [id number] 10/23/19 09:31 DV 10/23/19 09:15 Wound Center Nurse 1 [Ulcer Assessment] #3 Right Lateral Foot -Combined with other wound No -Current Size (cm) - Length 1.6 -Current Size (cm) - Width 1.0 -Current Size (cm) - Depth 0.2 -Total Square Cm 1.60 -Date of Last Picture (Recall this 10/23/19 field) -Photo Taken Yes -Epithelialization None Present -Tunneling No -Undermining/Tunneling No -Circular Undermining No -Classification - Thickness Full Thickness without Exposed Support Structure -Classification - Gonzales Grading ( Grade 3 Diabetic Ulcer) -Exudate Amt Medium -Exudate Type Serosanguineous -Wound Margin Indistinct, Non -Visible -Granulation Amt None Present (0 %) -Granulation Quality N/A -Slough/Fibrin Yes -Necrosis Amt Large (67-100%) -Necrotic Tissue Type Adherent Slough -Structure Exposed None/Limited to Skin Breakdown -Texture (Shanti-wound Skin Appearance) Assessed, Scarring -Moisture (Shanti-wound Skin Appearance Assessed, ) Weeping -Color (Shanti-wound Skin Appearance) Assessed, Erythema -Temperature (Shanti-wound Skin No Abnormality Appearance) (Pt Warm) -Tenderness on Palpation (Shanti-wound No Skin Appearance) -Ulcer Cleansing Rinsed/ Irrigated with Saline -Foul Odor after Cleansing No -Anesthetic Used 5% Lidocaine Gel [Edema Assessment] -Lower Limb Edema Present No WC - Nurse 2 - General Ulcer CM Notes Start: 10/23/19 09:10 Freq: Status: Active Protocol: Activity Type Activity Date Activity User E-Sign Co-Sign Detail Recorded Client Recorded Date Recorded By Document 10/23/19 10:01 DON [id number] 10/23/19 10:06 DON 10/23/19 10:01 Wound Center Nurse 2 [Procedure/Treatment] 4-RIGHT PLANTAR 5TH METATARSAL -Time 10:01 -Correct Patient Yes -Correct Side, Site, Position Yes -Correct Procedure Yes -Procedure Performed Yes -Type of Procedure Debridement -Clinical Debridement Subcutaneous -Post Debridement Size (cm) - Length 0.3 -Post Debridement Size (cm) - Width 0.4 -Post Debridement Size (cm) - Depth 0.2 -Total Square Cm 0.12 -Wound/Ulcer Outcome Not Healed -Ulcer Cleansing Rinsed/ Irrigated with Saline -Foul Odor after Cleansing No -Bioengineered Tissue No -Bleeding Controlled with Pressure -Offloading Yes -Type of Offloading Surgical Shoe -Treatment Response Procedure Tolerated Well #3 Right Lateral Foot -Time 10:01 -Correct Patient Yes -Correct Side, Site, Position Yes -Correct Procedure Yes -Procedure Performed Yes -Type of Procedure Debridement -Clinical Debridement Subcutaneous -Post Debridement Size (cm) - Length 2.1 -Post Debridement Size (cm) - Width 1.1 -Post Debridement Size (cm) - Depth 0.3 -Total Square Cm 2.31 -Wound/Ulcer Outcome Not Healed -Ulcer Cleansing Rinsed/ Irrigated with Saline -Foul Odor after Cleansing No -Bioengineered Tissue No -Bleeding Controlled with Pressure -Offloading Yes -Type of Offloading Surgical Shoe -Treatment Response Procedure Tolerated Well [See Physician Procedure note for Specifics] Pain Scale: 0-10 Numeric [Pain] -Is Patient Pain Free? Yes Musculoskeletal: No Tenderness to Palpation of Joints or Extremities, Muscle Wasting Neurological: - - Lack of normal epicritic sensation light touch is consistent with neuropathy status Psych/Mental Status: Normal Affect, Appropriate Debridement Note Post-Debridement Measurements/Treatment WC - Nurse 2 - General Ulcer CM Notes Start: 10/23/19 09:10 Freq: Status: Active Protocol: Activity Type Activity Date Activity User E-Sign Co-Sign Detail Recorded Client Recorded Date Recorded By Document 10/23/19 10:01 DON [id number] 10/23/19 10:06 DON 10/23/19 10:01 Wound Center Nurse 2 4-RIGHT PLANTAR 5TH METATARSAL -Time 10:01 -Correct Patient Yes -Correct Side, Site, Position Yes -Correct Procedure Yes -Procedure Performed Yes -Type of Procedure Debridement -Clinical Debridement Subcutaneous -Post Debridement Size (cm) - Length 0.3 -Post Debridement Size (cm) - Width 0.4 -Post Debridement Size (cm) - Depth 0.2 -Total Square Cm 0.12 -Wound/Ulcer Outcome Not Healed -Ulcer Cleansing Rinsed/ Irrigated with Saline -Foul Odor after Cleansing No -Bioengineered Tissue No -Bleeding Controlled with Pressure -Offloading Yes -Type of Offloading Surgical Shoe -Treatment Response Procedure Tolerated Well #3 Right Lateral Foot -Time 10:01 -Correct Patient Yes -Correct Side, Site, Position Yes -Correct Procedure Yes -Procedure Performed Yes -Type of Procedure Debridement -Clinical Debridement Subcutaneous -Post Debridement Size (cm) - Length 2.1 -Post Debridement Size (cm) - Width 1.1 -Post Debridement Size (cm) - Depth 0.3 -Total Square Cm 2.31 -Wound/Ulcer Outcome Not Healed -Ulcer Cleansing Rinsed/ Irrigated with Saline -Foul Odor after Cleansing No -Bioengineered Tissue No -Bleeding Controlled with Pressure -Offloading Yes -Type of Offloading Surgical Shoe -Treatment Response Procedure Tolerated Well Pain Scale: 0-10 Numeric Is Patient Pain Free? Yes Wound debrided: lateral forefoot, sub 5th metatarsal head Laterality: Right Wound Grade/Stage: grade 1 Type of Debridement: Excisional debridement Anesthesia Used: 5% Lidocaine Gel Depth: in the subcutaneous layer Percentage of wound debrided: 100 Instrument Used: #15 blade Tissue Removed: fibrous, devitalized subcutaneous, biofilm, slough Severity: Fat Layer Exposed Amount of bleeding with debridement: Mild Bleeding Controlled with: Pressure Patient tolerated procedure well Assessment/Plan Active Problems Type 1 diabetes mellitus (Chronic) Tobacco abuse (Acute) Pain of right lower extremity (Chronic) Ulcer of right foot with fat layer exposed (Acute) Assessment: See above diagnoses Plan: I reviewed and discussed his case with this [id number] encounter today. Subcutaneous excisional debridement was performed as noted panel. After review was performed. A deep wound culture was obtained including aerobic, anaerobic, acid-fast. I will request his medical records from [facility]. I recommend updating his CBC, ESR, CMP, and C-reactive protein and these were ordered today. To continue on his oral antibiotics that were started when he went to the urgent center. He understands these may be updated after his cultures develop. To offload the ulcer site by returning to his forefoot offloading surgical shoe and put weight on his heel. He already has this in place today. To avoid excessive walking activity. To elevate the limb at rest. We had a serious discussion about better glycemic control. His last hemoglobin A1c was over 9. He was advised to continue to follow-up with his consumer loan specialist and to maintain accountability for dietary choices at home. His x-ray pictures will be requested from the other facility and also the report will be requested. It is noted he had noninvasive vascular studies earlier this year and these demonstrated adequate flow for lower extremity healing. I answered all his questions. He is advised to follow-up in clinic in 1 week or call sooner if he has any questions or concerns. He was also advised to present to the emergency room or call the office immediately if he has worsening status or progressive local or systemic signs of infection.
[2019-10-23 14:52] LABS: Absolute Lymphocyte Count 1.25 X10^3/uL (0.83-4.51); Absolute Neutrophil Count 4.1 X10^3/uL (2.0-7.7); Basophil# 0.06 X10^3/uL; Basophil% 0.9 % (0-1); Eosinophil# 0.13 X10^3/uL; Hemoglobin 16.2 g/dL (13.0-16.5); Lymphocyte # 1.25 X10^3/ul (4.0); Lymphocyte % 19.5 % (19-41); Mean Corp Hgb Conc 32.4 g/dL (32-36); Mean Corpuscular Hgb 29.8 pg (27.0-32.0); Mean Corpuscular Volume 91.9 fL (80-94); Mean Platelet Vol. 10.6 fl (6.2-12.0); Monocyte# 0.83 X10^3/uL; Monocyte% 12.9 % (0-10); NRBC Flagged by Analyzer 0 % (0-5); Neutrophil # 4.12 X10^3/uL (2.7-7.7); Neutrophil % 64.2 % (47-70); Platelet Count 347 K/mm3 (150-450); RBC Distribution Width CV 15.3 % (11.6-14.6); RBC Distribution Width SD 51.1 fl (35.1-43.9); Red Blood Count 5.44 M/mm3 (4.6-6.2); White Blood Count 6.4 K/mm3 (4.4-11.0)
[2019-10-23 14:55] LABS: Erythrocyte Sedimentation Rate 13 mm/hr (0-15)
[2019-10-23 15:05] LABS: ALB/GLOB Ratio 0.9 RATIO (0.9-2.4); AST(SGOT) 21 U/L (15-37); Alanine Aminotransfer ALT/SGPT 20 U/L (16-61); Albumin, Serum 3.8 g/dL (3.2-5.0); Alkaline Phosphatase 79 U/L (45-117); Anion Gap 6 (5-15); BUN 16 mg/dL (7-18); BUN/Creat Ratio 18.3 RATIO (10-20); Calcium,Total 10.1 mg/dL (8.5-10.1); Chloride 99 mmol/L (98-107); Creatinine, Serum 0.87 mg/dL (0.70-1.30); EST Glomerular Filtration Rate 101 mL/min (>60); Est Glom Filt Rate - Afr Amer 122 mL/min (>60); Estimated Creatinine Clearance 111.23 ml/min; Globulin 4.3 g/dL (2.2-4.2); Glucose 193 mg/dL (74-106); Potassium 4.6 mmol/L (3.5-5.1); Protein, Total 8.1 g/dL (6.4-8.2); Sodium Level 134 mmol/L (136-145)
[2019-10-23 17:30] LABS: M R Staph aureus DNA By PCR Negative (Negative); Probe Check PASS; Specimen Processing Control PASS; Staph aureus DNA By PCR NEGATIVE (Negative)
== END 2019-10-27 23:59 ==
LOC: WC 09:01
PROVIDERS: PCP Nurse Practitioner Family; Referring Provider Podiatrist; Visit Provider Podiatrist
DX: E10.621 Type 1 diabetes mellitus with foot ulcer (principal); L97.512 Non-pressure chronic ulcer of other part of right foot with fat layer exposed; R60.0 Localized edema; I87.2 Venous insufficiency (chronic) (peripheral); Z79.4 Long term (current) use of insulin; F17.200 Nicotine dependence, unspecified, uncomplicated; Z79.899 Other long term (current) drug therapy
CPT/HCPCS: 11042; 80053; 85025; 85652; 86140; 87070; 87075; 87077; 87186; 87205; 87640; 99213; G0463

== ENCOUNTER → 2019-10-29 14:16 | Outpatient (CLI) | payer MEDICAID, SELFPAY ==
[2019-10-29 13:31] VITALS: BMI 20.5
[2019-10-29 15:23] LABS: Microalbumin,Random Urine 21.1 mg/L (NO RANGE EST.); Microalbumin:Creatinine Ratio 9.6 mg/g CRE (<30 mg/g CRE)
[2019-10-29 16:12] LABS: Hemoglobin A1c 10.1 % (3.8-5.6)
== END ==
PROVIDERS: PCP Internal Medicine; Referring Provider Internal Medicine; Visit Provider Internal Medicine
DX: E10.9 Type 1 diabetes mellitus without complications (principal); R00.0 Tachycardia, unspecified
CPT/HCPCS: 36415; 82043; 82570; 83036; 84439; 84443

== ENCOUNTER → 2019-11-01 13:56 | Outpatient (CLI) | payer MEDICAID, SELFPAY ==
[2019-10-30 11:10] VITALS: BMI 20.5
[2019-11-01 16:26] LABS: Amphetamine Urine VISTA NEGATIVE (<1000 ng/mL); Barbiturate Urine VISTA NEGATIVE (< 200 ng/mL); Benzodiazepine Urine VISTA NEGATIVE (< 200 ng/mL); Cocaine Urine VISTA NEGATIVE (< 300 ng/mL); Ecstacy Urine VISTA NEGATIVE (< 500 ng/mL); Methadone Urine VISTA NEGATIVE (< 300 ng/mL); PCP Urine VISTA NEGATIVE (< 25 ng/mL); THC Urine VISTA NEGATIVE (< 50 ng/mL); Vista UDS pH Range 5
== END ==
PROVIDERS: PCP Internal Medicine; Referring Provider Anesthesiology; Visit Provider Anesthesiology
DX: F11.20 Opioid dependence, uncomplicated (principal)
CPT/HCPCS: 80307

== ENCOUNTER 2019-11-13 09:30 | Outpatient (RCR) | payer MEDICAID, SELFPAY ==
[2019-10-28 00:27] VITALS: BP 128/80; PULSE 107; RESP 18; TEMP 36.8
[2019-10-29 13:31] VITALS: BMI 20.5
[2019-10-30 11:10] VITALS: BP 133/73; PULSE 88; RESP 20; TEMP 36.6; BMI 20.5
--- NOTE | 2019-10-30 14:19 | PN.PCM_ITS ---
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: Chronic Code(s): L97.512 - Non-pressure chronic ulcer of other part of right foot with fat layer exposed (2) Hyperglycemia Status: Chronic Code(s): R73.9 - Hyperglycemia, unspecified (3) Malnutrition Status: Chronic Code(s): E46 - Unspecified protein-calorie malnutrition (4) Type 1 diabetes mellitus Status: Chronic Qualifiers: Code(s): E10.9 - Type 1 diabetes mellitus without complications (5) Tobacco abuse Status: Chronic Code(s): Z72.0 - Tobacco use (6) Cellulitis of right foot Status: Resolved Code(s): L03.115 - Cellulitis of right lower limb Type of Wound Date of Service: 10/30/19 Chief Complaint: Right foot ulcer and cellulitis History of Wound: This is a 44-year-old white male was seen in clinic today for a return right foot ulcer. He relates decreased drainage since last Monday and it is less painful but still considered a moderate level pain. He initially went to [facility] in which she relates foot x-rays and blood cultures were obtained. He is not sure if he had additional blood work drawn or cultures of the wound itself. He relates he is more active this past week when his kids were in town. He usually wears [employer] shoes. He denies other specific injuries. He denies current fever, chill, nausea, vomiting. He rates his pain as an 8 out of 10 sharp. He relates he is taking amoxicillin and doxycycline. He had lab work performed. Progress of Wound: Stable and infection is improving - Physical Exam Vital Signs Temp Pulse Resp BP 98 F 88 20 H 133/73 H 10/30/19 11:10 10/30/19 11:10 10/30/19 11:10 10/30/19 11:10 General: Alert, Oriented x3, Cooperative, No apparent distress HEENT: Atraumatic Extremities: No cyanosis, Capillary Refill Less than 3 Seconds, No Calf Tenderness, Diminished Peripheral Pulses, Edema - Decreased Skin: Ulcer/ Wound - There is some peripheral epithelialization noted and there is no purulent drainage, erythema, or streaking or odor. No deep necrosis. It is still noted at the plantar ulcer probes deep and there is still pain to palpate the ulcer site Wound Measurements and Assessment WC - Nurse 1 - General Ulcer Measurement Start: 10/30/19 11:09 Freq: Status: Active Protocol: Activity Type Activity Date Activity User E-Sign Co-Sign Detail Recorded Client Recorded Date Recorded By Document 10/30/19 11:10 JAYY [id number] 10/30/19 11:12 DL 10/30/19 11:10 Wound Center Nurse 1 [Ulcer Assessment] 4-RIGHT PLANTAR 5TH METATARSAL -Current Size (cm) - Length 0.1 -Current Size (cm) - Width 0.1 -Current Size (cm) - Depth 0.1 -Total Square Cm 0.01 -Photo Taken No -Exudate Amt None Present -Wound Margin Thickened -Granulation Amt Small (1-33%) -Granulation Quality Pale -Necrosis Amt Small (1-33%) -Necrotic Tissue Type Adherent Slough -Structure Exposed N/A -Texture (Shanti-wound Skin Appearance) Callus -Moisture (Shanti-wound Skin Appearance Dry/Scaly ) -Color (Shanti-wound Skin Appearance) No Abnormality -Temperature (Shanti-wound Skin No Abnormality Appearance) (Pt Warm) -Tenderness on Palpation (Shanti-wound No Skin Appearance) -Ulcer Cleansing Rinsed/ Irrigated with Saline -Foul Odor after Cleansing No -Anesthetic Used 4% Lidocaine Solution #3 Right Lateral Foot -Current Size (cm) - Length 1.8 -Current Size (cm) - Width 0.8 -Current Size (cm) - Depth 0.1 -Total Square Cm 1.44 -Photo Taken No -Exudate Amt Small -Exudate Type Serosanguineous -Wound Margin Distinct, Outline Attached -Granulation Amt None Present (0 %) -Necrosis Amt Large (67-100%) -Necrotic Tissue Type Adherent Slough -Structure Exposed N/A -Texture (Shanti-wound Skin Appearance) Scarring -Moisture (Shanti-wound Skin Appearance No Abnormality ) -Color (Shanti-wound Skin Appearance) No Abnormality -Temperature (Shanti-wound Skin No Abnormality Appearance) (Pt Warm) -Tenderness on Palpation (Shanti-wound No Skin Appearance) -Ulcer Cleansing Rinsed/ Irrigated with Saline -Foul Odor after Cleansing No -Anesthetic Used 4% Lidocaine Solution WC - Nurse 2 - General Ulcer CM Notes Start: 10/30/19 11:09 Freq: Status: Active Protocol: Activity Type Activity Date Activity User E-Sign Co-Sign Detail Recorded Client Recorded Date Recorded By Document 10/30/19 12:39 PL [id number] 10/30/19 12:57 PL 10/30/19 12:39 Wound Center Nurse 2 [Procedure/Treatment] 4-RIGHT PLANTAR 5TH METATARSAL -Time 11:15 -Correct Patient Yes -Correct Side, Site, Position Yes -Correct Procedure Yes -Procedure Performed Yes -Type of Procedure Debridement -Clinical Debridement Subcutaneous -Post Debridement Size (cm) - Length 1 -Post Debridement Size (cm) - Width 1 -Post Debridement Size (cm) - Depth 0.6 -Total Square Cm 1 -Wound/Ulcer Outcome Not Healed -Ulcer Cleansing Rinsed/ Irrigated with Saline -Foul Odor after Cleansing No -Bleeding Controlled with Pressure -Treatment Response Procedure Tolerated Well #3 Right Lateral Foot -Time 11:15 -Correct Patient Yes -Correct Side, Site, Position Yes -Correct Procedure Yes -Procedure Performed Yes -Type of Procedure Debridement -Clinical Debridement Subcutaneous -Post Debridement Size (cm) - Length 1.9 -Post Debridement Size (cm) - Width 0.8 -Post Debridement Size (cm) - Depth 0.2 -Total Square Cm 1.52 -Wound/Ulcer Outcome Not Healed -Ulcer Cleansing Rinsed/ Irrigated with Saline -Foul Odor after Cleansing No -Bleeding Controlled with Pressure -Treatment Response Procedure Tolerated Well [See Physician Procedure note for Specifics] Pain Scale: 0-10 Numeric [Pain] -Is Patient Pain Free? Yes Musculoskeletal: No Tenderness to Palpation of Joints or Extremities, Muscle Wasting Neurological: Sensory exam intact to light touch and pain Psych/Mental Status: Normal Affect, Appropriate Debridement Note Post-Debridement Measurements/Treatment WC - Nurse 2 - General Ulcer CM Notes Start: 10/30/19 11:09 Freq: Status: Active Protocol: Activity Type Activity Date Activity User E-Sign Co-Sign Detail Recorded Client Recorded Date Recorded By Document 10/30/19 12:39 PL [id number] 10/30/19 12:57 PL 10/30/19 12:39 Wound Center Nurse 2 4-RIGHT PLANTAR 5TH METATARSAL -Time 11:15 -Correct Patient Yes -Correct Side, Site, Position Yes -Correct Procedure Yes -Procedure Performed Yes -Type of Procedure Debridement -Clinical Debridement Subcutaneous -Post Debridement Size (cm) - Length 1 -Post Debridement Size (cm) - Width 1 -Post Debridement Size (cm) - Depth 0.6 -Total Square Cm 1 -Wound/Ulcer Outcome Not Healed -Ulcer Cleansing Rinsed/ Irrigated with Saline -Foul Odor after Cleansing No -Bleeding Controlled with Pressure -Treatment Response Procedure Tolerated Well #3 Right Lateral Foot -Time 11:15 -Correct Patient Yes -Correct Side, Site, Position Yes -Correct Procedure Yes -Procedure Performed Yes -Type of Procedure Debridement -Clinical Debridement Subcutaneous -Post Debridement Size (cm) - Length 1.9 -Post Debridement Size (cm) - Width 0.8 -Post Debridement Size (cm) - Depth 0.2 -Total Square Cm 1.52 -Wound/Ulcer Outcome Not Healed -Ulcer Cleansing Rinsed/ Irrigated with Saline -Foul Odor after Cleansing No -Bleeding Controlled with Pressure -Treatment Response Procedure Tolerated Well Pain Scale: 0-10 Numeric Is Patient Pain Free? Yes Wound debrided: plantar foot, lateral forefoot Laterality: Right Wound Grade/Stage: grade 1 Type of Debridement: Excisional debridement Anesthesia Used: 5% Lidocaine Gel Depth: in the subcutaneous layer Percentage of wound debrided: 100 Instrument Used: #15 blade Tissue Removed: fibrous, devitalized subcutaneous, biofilm, slough Severity: Fat Layer Exposed Amount of bleeding with debridement: Mild Bleeding Controlled with: Pressure Patient tolerated procedure well Assessment/Plan Assessment: See above diagnoses Plan: I reviewed and discussed his case with this [id number] encounter today. Subcutaneous excisional debridement was performed as noted panel. After review was performed. A deep wound culture was obtained including aerobic, anaerobic, acid-fast. His cultures demonstrated staph lugdenensis. I recommend updating his CBC, ESR, CMP, and C-reactive protein. These results were reviewed with white blood cell count of 6.4, GFR over 60, C-reactive protein of 11.4, MRSA negative, and hemoglobin A1c was 10.1. To continue on his oral antibiotics that were started when he went to the urgent center. To offload the ulcer site by returning to his forefoot offloading surgical shoe and put weight on his heel. He already has this in place today. To avoid excessive walking activity. To elevate the limb at rest. We had a serious discussion about better glycemic control. 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 His x-ray pictures will be requested from the other facility and also the report will be requested. It is noted he had noninvasive vascular studies earlier this year and these demonstrated adequate flow for lower extremity healing. I answered all his questions. He is advised to follow-up in clinic in 1 week or call sooner if he has any questions or concerns. He was also advised to present to the emergency room or call the office immediately if he has worsening status or progressive local or systemic signs of infection.
[2019-11-06 09:43] VITALS: BP 127/85; PULSE 81; RESP 20; TEMP 36.1; BMI 20.5
--- NOTE | 2019-11-06 10:11 | PN.PCM_ITS ---
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: Chronic Current Visit: Yes Code(s): L97.512 - Non-pressure chronic ulcer of other part of right foot with fat layer exposed (2) Hyperglycemia Status: Chronic Current Visit: Yes Code(s): R73.9 - Hyperglycemia, unspecified (3) Malnutrition Status: Chronic Current Visit: Yes Code(s): E46 - Unspecified protein- calorie malnutrition (4) Type 1 diabetes mellitus Status: Chronic Current Visit: Yes Qualifiers: Code(s): E10.9 - Type 1 diabetes mellitus without complications (5) Tobacco abuse Status: Chronic Current Visit: Yes Code(s): Z72.0 - Tobacco use (6) Cellulitis of right foot Status: Resolved Current Visit: Yes Code(s): L03.115 - Cellulitis of right lower limb Type of Wound Date of Service: 11/06/19 Chief Complaint: Right foot ulcer and cellulitis History of Wound: This is a 44-year-old white male was seen in clinic today for a return right foot ulcer. He has moderate pain. He is reduced drainage compared to last week. He wears an offloading wedge shoe while at home and a regular surgical shoe while he is out in the community. He denies fever, chill, nausea, vomiting, redness, streaking or odor. Progress of Wound: Improving and infection clinically resolved - Physical Exam Vital Signs Temp Pulse Resp BP 97 F L 81 20 H 127/85 H 11/06/19 09:43 11/06/19 09:43 11/06/19 09:43 11/06/19 09:43 General: Alert, Oriented x3, Cooperative, No apparent distress Extremities: No cyanosis, Capillary Refill Less than 3 Seconds, No Calf Tenderness, Diminished Peripheral Pulses, Edema Skin: Ulcer/ Wound - Purulence, erythema, streaking, odor, infection. His skin is atrophic and hairless. Wound Measurements and Assessment WC - Nurse 1 - General Ulcer Measurement Start: 10/30/19 11:09 Freq: Status: Active Protocol: Activity Type Activity Date Activity User E-Sign Co-Sign Detail Recorded Client Recorded Date Recorded By Document 11/06/19 09:43 DL [id number] 11/06/19 09:46 DL 11/06/19 09:43 Wound Center Nurse 1 [Ulcer Assessment] 4-RIGHT PLANTAR 5TH METATARSAL -Current Size (cm) - Length 0.3 -Current Size (cm) - Width 0.2 -Current Size (cm) - Depth 0.1 -Total Square Cm 0.06 -Photo Taken No -Exudate Amt None Present -Wound Margin Distinct, Outline Attached -Granulation Amt Small (1-33%) -Granulation Quality [place] -Necrosis Amt None Present (0 %) -Structure Exposed N/A -Texture (Shanti-wound Skin Appearance) Scarring -Moisture (Shanti-wound Skin Appearance Dry/Scaly ) -Color (Shanti-wound Skin Appearance) No Abnormality -Temperature (Shanti-wound Skin No Abnormality Appearance) (Pt Warm) -Tenderness on Palpation (Shanti-wound No Skin Appearance) -Ulcer Cleansing Rinsed/ Irrigated with Saline -Foul Odor after Cleansing No -Anesthetic Used 4% Lidocaine Solution #3 Right Lateral Foot -Current Size (cm) - Length 0.5 -Current Size (cm) - Width 0.5 -Current Size (cm) - Depth 0.1 -Total Square Cm 0.25 -Photo Taken No -Exudate Amt None Present -Wound Margin Thickened -Granulation Amt None Present (0 %) -Necrosis Amt Small (1-33%) -Necrotic Tissue Type Eschar -Structure Exposed N/A -Texture (Shanti-wound Skin Appearance) Scarring -Moisture (Shanti-wound Skin Appearance Dry/Scaly ) -Color (Shanti-wound Skin Appearance) No Abnormality -Temperature (Shanti-wound Skin No Abnormality Appearance) (Pt Warm) -Tenderness on Palpation (Shanti-wound No Skin Appearance) -Ulcer Cleansing Rinsed/ Irrigated with Saline -Foul Odor after Cleansing No -Anesthetic Used 4% Lidocaine Solution Musculoskeletal: No Tenderness to Palpation of Joints or Extremities, Muscle Wasting Neurological: - - Lack of sensation Psych/Mental Status: Normal Affect, Appropriate Debridement Note Post-Debridement Measurements/Treatment WC - Nurse 2 - General Ulcer CM Notes Start: 10/30/19 11:09 Freq: Status: Active Protocol: Activity Type Activity Date Activity User E-Sign Co-Sign Detail Recorded Client Recorded Date Recorded By Document 10/30/19 12:39 PL [id number] 10/30/19 12:57 PL 10/30/19 12:39 Wound Center Nurse 2 4-RIGHT PLANTAR 5TH METATARSAL -Time 11:15 -Correct Patient Yes -Correct Side, Site, Position Yes -Correct Procedure Yes -Procedure Performed Yes -Type of Procedure Debridement -Clinical Debridement Subcutaneous -Post Debridement Size (cm) - Length 1 -Post Debridement Size (cm) - Width 1 -Post Debridement Size (cm) - Depth 0.6 -Total Square Cm 1 -Wound/Ulcer Outcome Not Healed -Ulcer Cleansing Rinsed/ Irrigated with Saline -Foul Odor after Cleansing No -Bleeding Controlled with Pressure -Treatment Response Procedure Tolerated Well #3 Right Lateral Foot -Time 11:15 -Correct Patient Yes -Correct Side, Site, Position Yes -Correct Procedure Yes -Procedure Performed Yes -Type of Procedure Debridement -Clinical Debridement Subcutaneous -Post Debridement Size (cm) - Length 1.9 -Post Debridement Size (cm) - Width 0.8 -Post Debridement Size (cm) - Depth 0.2 -Total Square Cm 1.52 -Wound/Ulcer Outcome Not Healed -Ulcer Cleansing Rinsed/ Irrigated with Saline -Foul Odor after Cleansing No -Bleeding Controlled with Pressure -Treatment Response Procedure Tolerated Well Pain Scale: 0-10 Numeric Is Patient Pain Free? Yes Wound debrided: sub 5th metatarsal head and lateral fifth metatarsal head Laterality: Right Wound Grade/Stage: grade 1 Type of Debridement: Excisional debridement Anesthesia Used: 5% Lidocaine Gel Depth: in the subcutaneous layer Percentage of wound debrided: 100 Instrument Used: #15 blade Tissue Removed: fibrous, devitalized subcutaneous, biofilm, slough Severity: Fat Layer Exposed Amount of bleeding with debridement: Mild Bleeding Controlled with: Pressure Patient tolerated procedure well Assessment/Plan Active Problems (Last Reviewed 10/29/19 @ 13:50 by Logan Valdez) Hyperglycemia (Chronic) Malnutrition (Chronic) Type 1 diabetes mellitus (Chronic) Tobacco abuse (Chronic) Ulcer of right foot with fat layer exposed (Chronic) Assessment: See above diagnoses Plan: I reviewed and discussed his case with this [id number] encounter today. Subcutaneous excisional debridement was performed as noted panel. After review was performed. He was reassured local signs of infection and systemic illness are not noted today. I do not recommend additional antibiotics. He completed antibiotic course and denies side effects. He had prior lab work done and cultures done. These results were previously reviewed with white blood cell count of 6.4, GFR over 60, C-reactive protein of 11.4, MRSA negative, and hemoglobin A1c was 10.1. To offload the ulcer site by returning to his forefoot offloading surgical shoe and put weight on his heel. He already has this in place today. To wear offloading wedge shoes when possible. To avoid excessive walking activity. To elevate the limb at rest. We had a serious discussion about better glycemic control. 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 His x-ray pictures will be requested from the other facility and also the report will be requested. It is noted he had noninvasive vascular studies earlier this year and these demonstrated adequate flow for lower extremity healing. I answered all his questions. He is advised to follow-up in clinic in 1 week or call sooner if he has any questions or concerns. He was also advised to present to the emergency room or call the office immediately if he has worsening status or progressive local or systemic signs of infection.
[2019-11-13 09:47] VITALS: BP 162/93; PULSE 90; RESP 18; TEMP 36.4; BMI 20.5
--- NOTE | 2019-11-13 10:47 | PCM.WC.PN ---
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: Chronic Current Visit: Yes Code(s): L97.512 - Non-pressure chronic ulcer of other part of right foot with fat layer exposed (2) Hyperglycemia Status: Chronic Current Visit: Yes Code(s): R73.9 - Hyperglycemia, unspecified (3) Malnutrition Status: Chronic Current Visit: Yes Code(s): E46 - Unspecified protein-calorie malnutrition (4) Type 1 diabetes mellitus Status: Chronic Current Visit: Yes Qualifiers: Code(s): E10.9 - Type 1 diabetes mellitus without complications (5) Tobacco abuse Status: Chronic Current Visit: Yes Code(s): Z72.0 - Tobacco use (6) Cellulitis of right foot Status: Resolved Current Visit: Yes Code(s): L03.115 - Cellulitis of right lower limb Type of Wound Date of Service: 11/13/19 Chief Complaint: Right foot ulcer History of Wound: This is a 44-year-old white male was seen in clinic today for a return right foot ulcer. He has moderate pain. He has reduced drainage compared to last week. He wears an offloading wedge shoe while at home and a regular surgical shoe while he is out in the community. He denies fever, chill, nausea, vomiting, redness, streaking or odor. He was started on Lyrica, relates some reduction in pain since last week. Progress of Wound: Improving - Physical Exam Vital Signs Temp Pulse Resp BP 97.6 F L 90 18 162/93 H 11/13/19 09:47 11/13/19 09:47 11/13/19 09:47 11/13/19 09:47 General: Alert, Oriented x3, Cooperative, No apparent distress Extremities: No cyanosis, Capillary Refill Less than 3 Seconds, No Calf Tenderness, Diminished Peripheral Pulses, Edema Skin: Ulcer/ Wound - No purulence, erythema, string, odor, infection. Skin discontinuity still continued to the lateral plantar aspect of the foot. The adjacent skin is hairless and atrophic. Peripheral epithelialization is noted Wound Measurements and Assessment WC - Nurse 1 - General Ulcer Measurement Start: 10/30/19 11:09 Freq: Status: Active Protocol: Activity Type Activity Date Activity User E-Sign Co-Sign Detail Recorded Client Recorded Date Recorded By Document 11/13/19 09:47 BS [id number] 11/13/19 09:51 BS 11/13/19 09:47 Wound Center Nurse 1 [Ulcer Assessment] 4-RIGHT PLANTAR 5TH METATARSAL -Combined with other wound No -Current Size (cm) - Length 0.1 -Current Size (cm) - Width 0.1 -Current Size (cm) - Depth 0.1 -Total Square Cm 0.01 -Photo Taken No -Texture (Shanti-wound Skin Appearance) Assessed,Callus -Moisture (Shanti-wound Skin Appearance Assessed,Dry/ ) Scaly -Color (Shanti-wound Skin Appearance) No Abnormality, Assessed -Temperature (Shanti-wound Skin No Abnormality Appearance) (Pt Warm) -Tenderness on Palpation (Shanti-wound No Skin Appearance) -Ulcer Cleansing Rinsed/ Irrigated with Saline -Foul Odor after Cleansing No -Anesthetic Used 4% Lidocaine Solution #3 Right Lateral Foot -Combined with other wound No -Current Size (cm) - Length 0.1 -Current Size (cm) - Width 0.1 -Current Size (cm) - Depth 0.1 -Total Square Cm 0.01 -Photo Taken No -Texture (Shanti-wound Skin Appearance) Assessed,Callus -Moisture (Shanti-wound Skin Appearance Assessed,Dry/ ) Scaly -Color (Shanti-wound Skin Appearance) No Abnormality, Assessed -Temperature (Shanti-wound Skin No Abnormality Appearance) (Pt Warm) -Tenderness on Palpation (Shanti-wound No Skin Appearance) -Ulcer Cleansing Rinsed/ Irrigated with Saline -Foul Odor after Cleansing No -Anesthetic Used 4% Lidocaine Solution WC - Nurse 2 - General Ulcer CM Notes Start: 10/30/19 11:09 Freq: Status: Active Protocol: Activity Type Activity Date Activity User E-Sign Co-Sign Detail Recorded Client Recorded Date Recorded By Document 11/13/19 10:14 [id number] 11/13/19 10:17 11/13/19 10:14 Wound Center Nurse 2 [Procedure/Treatment] 4-RIGHT PLANTAR 5TH METATARSAL -Time 10:14 -Correct Patient Yes -Correct Side, Site, Position Yes -Correct Procedure Yes -Procedure Performed Yes -Type of Procedure Debridement -Clinical Debridement Subcutaneous -Post Debridement Size (cm) - Length 0.5 -Post Debridement Size (cm) - Width 0.5 -Post Debridement Size (cm) - Depth 0.1 -Total Square Cm 0.25 -Wound/Ulcer Outcome Not Healed -Ulcer Cleansing Rinsed/ Irrigated with Saline -Foul Odor after Cleansing No -Bioengineered Tissue No -Bleeding Controlled with Pressure -Offloading Yes -Type of Offloading Surgical Shoe -Treatment Response Procedure Tolerated Well #3 Right Lateral Foot -Time 10:15 -Correct Patient Yes -Correct Side, Site, Position Yes -Correct Procedure Yes -Procedure Performed Yes -Type of Procedure Debridement -Clinical Debridement Subcutaneous -Post Debridement Size (cm) - Length 0.5 -Post Debridement Size (cm) - Width 1.0 -Post Debridement Size (cm) - Depth 0.1 -Total Square Cm 0.50 -Wound/Ulcer Outcome Not Healed -Ulcer Cleansing Rinsed/ Irrigated with Saline -Foul Odor after Cleansing No -Bioengineered Tissue No -Bleeding Controlled with Pressure -Offloading Yes -Type of Offloading Surgical Shoe -Treatment Response Procedure Tolerated Well [See Physician Procedure note for Specifics] Pain Scale: 0-10 Numeric [Pain] -Is Patient Pain Free? Yes Musculoskeletal: No Tenderness to Palpation of Joints or Extremities, Tenderness - Decreased to wound manipulation Neurological: - - Lack of normal sensation Psych/Mental Status: Normal Affect, Appropriate Debridement Note Post-Debridement Measurements/Treatment WC - Nurse 2 - General Ulcer CM Notes Start: 10/30/19 11:09 Freq: Status: Active Protocol: Activity Type Activity Date Activity User E-Sign Co-Sign Detail Recorded Client Recorded Date Recorded By Document 10/30/19 12:39 PL [id number] 10/30/19 12:57 PL Document 11/13/19 10:14 [id number] 11/13/19 10:17 10/30/19 11/13/19 12:39 10:14 Wound Center Nurse 2 4-RIGHT PLANTAR 5TH METATARSAL -Time 11:15 10:14 -Correct Patient Yes Yes -Correct Side, Site, Position Yes Yes -Correct Procedure Yes Yes -Procedure Performed Yes Yes -Type of Procedure Debridement Debridement -Clinical Debridement Subcutaneous Subcutaneous -Post Debridement Size (cm) - Length 1 0.5 -Post Debridement Size (cm) - Width 1 0.5 -Post Debridement Size (cm) - Depth 0.6 0.1 -Total Square Cm 1 0.25 -Wound/Ulcer Outcome Not Healed Not Healed -Ulcer Cleansing Rinsed/ Rinsed/ Irrigated with Irrigated with Saline Saline -Foul Odor after Cleansing No No -Bioengineered Tissue No -Bleeding Controlled with Pressure Pressure -Offloading Yes -Type of Offloading Surgical Shoe -Treatment Response Procedure Procedure Tolerated Well Tolerated Well #3 Right Lateral Foot -Time 11:15 10:15 -Correct Patient Yes Yes -Correct Side, Site, Position Yes Yes -Correct Procedure Yes Yes -Procedure Performed Yes Yes -Type of Procedure Debridement Debridement -Clinical Debridement Subcutaneous Subcutaneous -Post Debridement Size (cm) - Length 1.9 0.5 -Post Debridement Size (cm) - Width 0.8 1.0 -Post Debridement Size (cm) - Depth 0.2 0.1 -Total Square Cm 1.52 0.50 -Wound/Ulcer Outcome Not Healed Not Healed -Ulcer Cleansing Rinsed/ Rinsed/ Irrigated with Irrigated with Saline Saline -Foul Odor after Cleansing No No -Bioengineered Tissue No -Bleeding Controlled with Pressure Pressure -Offloading Yes -Type of Offloading Surgical Shoe -Treatment Response Procedure Procedure Tolerated Well Tolerated Well Pain Scale: 0-10 Numeric Is Patient Pain Free? Yes Yes Wound debrided: plantar and lateral forefoot Laterality: Left Wound Grade/Stage: grade 1 Type of Debridement: Excisional debridement Anesthesia Used: 5% Lidocaine Gel Depth: in the subcutaneous layer Percentage of wound debrided: 100 Instrument Used: #15 blade Tissue Removed: fibrous, devitalized subcutaneous, biofilm, slough Severity: Fat Layer Exposed Amount of bleeding with debridement: Mild Bleeding Controlled with: Pressure Patient tolerated procedure well Assessment/Plan Active Problems (Last Reviewed 10/29/19 @ 13:50 by Logan Valdez) Hyperglycemia (Chronic) Malnutrition (Chronic) Type 1 diabetes mellitus (Chronic) Tobacco abuse (Chronic) Ulcer of right foot with fat layer exposed (Chronic) Assessment: See above diagnoses Plan: I reviewed and discussed his case with this [id number] encounter today. Subcutaneous excisional debridement was performed as noted panel. After review was performed. He was reassured local signs of infection and systemic illness are not noted today. I do not recommend additional antibiotics. He completed antibiotic course and denies side effects. He had prior lab work done and cultures done. These results were previously reviewed with white blood cell count of 6.4, GFR over 60, C-reactive protein of 11.4, MRSA negative, and hemoglobin A1c was 10.1. To offload the ulcer site by returning to his forefoot offloading surgical shoe and put weight on his heel. He already has this in place today. To wear offloading wedge shoes when possible. To avoid excessive walking activity. To elevate the limb at rest. We had a serious discussion about better glycemic control. He was advised to continue to follow-up with his manager real estate and to maintain accountability for dietary choices at home. It is noted he had noninvasive vascular studies earlier this year and these demonstrated adequate flow for lower extremity healing. I answered all his questions. He is advised to follow-up in clinic in 1 week or call sooner if he has any questions or concerns. He was also advised to present to the emergency room or call the office immediately if he has worsening status or progressive local or systemic signs of infection. To continue with Lyrica that he has been placed for neuropathy and pain.
== END 2019-11-26 23:59 ==
LOC: WC 09:30
PROVIDERS: PCP Internal Medicine; Referring Provider Podiatrist; Visit Provider Podiatrist
DX: E10.621 Type 1 diabetes mellitus with foot ulcer (principal); L97.512 Non-pressure chronic ulcer of other part of right foot with fat layer exposed; E10.65 Type 1 diabetes mellitus with hyperglycemia; Z72.0 Tobacco use
CPT/HCPCS: 11042

== ENCOUNTER → 2019-12-10 09:24 | Outpatient (CLI) | payer MEDICAID, SELFPAY ==
[2019-11-27 13:49] VITALS: BMI 20.5
[2019-12-10 13:08] LABS: Erythrocyte Sedimentation Rate 18 mm/hr (0-15)
[2019-12-10 13:09] LABS: Absolute Lymphocyte Count 1.29 X10^3/uL (0.83-4.51); Absolute Neutrophil Count 4.8 X10^3/uL (2.0-7.7); Basophil# 0.05 X10^3/uL; Basophil% 0.7 % (0-1); Eosinophil# 0.21 X10^3/uL; Eosinophils% 2.8 % (0-5); Hematocrit 44.5 % (40-54); Hemoglobin 14.1 g/dL (13.0-16.5); Lymphocyte # 1.29 X10^3/ul (4.0); Mean Corp Hgb Conc 31.7 g/dL (32-36); Mean Corpuscular Hgb 29.6 pg (27.0-32.0); Mean Corpuscular Volume 93.5 fL (80-94); Mean Platelet Vol. 11.2 fl (6.2-12.0); Monocyte# 1.23 X10^3/uL; Monocyte% 16.2 % (0-10); NRBC Flagged by Analyzer 0 % (0-5); Neutrophil # 4.78 X10^3/uL (2.7-7.7); Neutrophil % 62.9 % (47-70); Platelet Count 331 K/mm3 (150-450); RBC Distribution Width CV 14.6 % (11.6-14.6); RBC Distribution Width SD 50.5 fl (35.1-43.9); Red Blood Count 4.76 M/mm3 (4.6-6.2); White Blood Count 7.6 K/mm3 (4.4-11.0)
[2019-12-10 13:20] LABS: ALB/GLOB Ratio 0.7 RATIO (0.9-2.4); AST(SGOT) 17 U/L (15-37); Alanine Aminotransfer ALT/SGPT 18 U/L (16-61); Albumin, Serum 3.2 g/dL (3.2-5.0); Alkaline Phosphatase 114 U/L (45-117); Anion Gap 7 (5-15); BUN 25 mg/dL (7-18); BUN/Creat Ratio 27.7 RATIO (10-20); Calcium,Total 9.6 mg/dL (8.5-10.1); Chloride 98 mmol/L (98-107); EST Glomerular Filtration Rate 97 mL/min (>60); Est Glom Filt Rate - Afr Amer 117 mL/min (>60); Globulin 4.3 g/dL (2.2-4.2); Glucose 172 mg/dL (74-106); Potassium 4.2 mmol/L (3.5-5.1); Protein, Total 7.5 g/dL (6.4-8.2); Sodium Level 134 mmol/L (136-145)
[2019-12-10 20:15] LABS: M R Staph aureus DNA By PCR Negative (Negative); Probe Check PASS; Specimen Processing Control PASS; Staph aureus DNA By PCR NEGATIVE (Negative)
== END ==
PROVIDERS: PCP Internal Medicine; Referring Provider Podiatrist; Visit Provider Podiatrist
DX: L03.115 Cellulitis of right lower limb (principal); M86.9 Osteomyelitis, unspecified
CPT/HCPCS: 36415; 80053; 85025; 85652; 86140; 87070; 87075; 87077; 87186; 87205; 87640

== ENCOUNTER 2019-12-18 09:00 | Outpatient (RCR) | payer MEDICAID, SELFPAY ==
[2019-11-27 00:27] VITALS: BP 162/93; PULSE 90; RESP 18; TEMP 36.4
[2019-11-27 13:49] VITALS: BP 119/75; PULSE 118; RESP 18; TEMP 37.3; BMI 20.5
--- NOTE | 2019-11-27 16:43 | PN.PCM_ITS ---
(1) Type 1 diabetes mellitus Status: Chronic Current Visit: Yes Qualifiers: Diabetes mellitus complication status: with skin complications Code(s): E10.9 - Type 1 diabetes mellitus without complications (2) Tobacco abuse Status: Chronic Current Visit: Yes Code(s): Z72.0 - Tobacco use (3) Ulcer of right foot with fat layer exposed Status: Chronic Current Visit: Yes Code(s): L97.512 - Non-pressure chronic ulcer of other part of right foot with fat layer exposed (4) Tailor's bunion of right foot Status: Chronic Current Visit: Yes Code(s): M21.621 - Bunionette of right foot (5) Hammer toe of right foot Status: Chronic Current Visit: Yes Code(s): M20.41 - Other hammer toe(s) ( acquired), right foot Type of Wound Date of Service: 11/27/19 Chief Complaint: Right foot ulcer History of Wound: This is a 44-year-old white male was seen in clinic today for a returned right foot ulcer. He has moderate pain. This has returned within the past week when he noticed pain and drainage on his sock. He has not been wearing his offloading wide shoes. His kids were in town from [place] and he was wearing regular Nike sneakers and was even with bracing and playing football with them. He denies fever, chill, nausea, vomiting, redness, streaking or odor. He is currently being seen in the pain management clinic and is taking Lyrica. He asks if medical marijuana is a treatment option at this time. Progress of Wound: Return, stable without signs of infection today - Physical Exam Vital Signs Temp Pulse Resp BP 99.1 F 118 H 18 119/75 11/27/19 13:49 11/27/19 13:49 11/27/19 13:49 11/27/19 13:49 General: Alert, Oriented x3, Cooperative, No apparent distress HEENT: Atraumatic Extremities: No cyanosis, Capillary Refill Less than 3 Seconds, No Calf Tenderness, Diminished Peripheral Pulses, Edema Skin: Ulcer/ Wound - There is skin discontinuity to the dorsal lateral right forefoot and not to the plantar sub-fifth metatarsal head. There is no erythema, streaking, odor, purulence on expression, maceration, necrosis or deep probing. The adjacent skin is hairless and atrophic in the foot Wound Measurements and Assessment WC - Nurse 1 - General Ulcer Measurement Start: 11/27/19 13:49 Freq: Status: Active Protocol: Activity Type Activity Date Activity User E-Sign Co-Sign Detail Recorded Client Recorded Date Recorded By Document 11/27/19 13:49 DV [id number] 11/27/19 13:54 DV 11/27/19 13:49 Wound Center Nurse 1 [Ulcer Assessment] 4-RIGHT PLANTAR 5TH METATARSAL -Combined with other wound No -Current Size (cm) - Length 0.1 -Current Size (cm) - Width 0.1 -Current Size (cm) - Depth 0.1 -Total Square Cm 0.01 -Photo Taken No -Epithelialization None Present -Tunneling No -Undermining/Tunneling No -Circular Undermining No -Classification - Thickness Full Thickness without Exposed Support Structure -Exudate Amt None Present -Wound Margin Flat & Intact -Granulation Amt None Present (0 %) -Granulation Quality N/A -Slough/Fibrin Yes -Necrosis Amt Small (1-33%) -Necrotic Tissue Type Adherent Slough -Structure Exposed None/Limited to Skin Breakdown -Texture (Shanti-wound Skin Appearance) Assessed, Scarring -Moisture (Shanti-wound Skin Appearance Assessed,Dry/ ) Scaly -Color (Shanti-wound Skin Appearance) No Abnormality, Assessed -Temperature (Shanti-wound Skin No Abnormality Appearance) (Pt Warm) -Ulcer Cleansing Rinsed/ Irrigated with Saline -Foul Odor after Cleansing No -Anesthetic Used 4% Lidocaine Solution #3 Right Lateral Foot -Combined with other wound No -Current Size (cm) - Length 0.5 -Current Size (cm) - Width 0.5 -Current Size (cm) - Depth 0.1 -Total Square Cm 0.25 -Photo Taken No -Epithelialization None Present -Tunneling No -Undermining/Tunneling No -Circular Undermining No -Classification - Thickness Full Thickness without Exposed Support Structure -Exudate Amt Small -Exudate Type Serous -Wound Margin Flat & Intact -Granulation Amt None Present (0 %) -Granulation Quality N/A -Slough/Fibrin No -Necrosis Amt Small (1-33%) -Necrotic Tissue Type Adherent Slough -Structure Exposed None/Limited to Skin Breakdown -Texture (Shanti-wound Skin Appearance) Assessed, Scarring -Moisture (Shanti-wound Skin Appearance Assessed, ) Weeping -Color (Shanti-wound Skin Appearance) Assessed, Erythema -Temperature (Shanti-wound Skin No Abnormality Appearance) (Pt Warm) -Tenderness on Palpation (Shanti-wound Yes Skin Appearance) -Ulcer Cleansing Rinsed/ Irrigated with Saline -Foul Odor after Cleansing No -Anesthetic Used 4% Lidocaine Solution KAREN - Nurse 2 - General Ulcer CM Notes Start: 11/27/19 13:49 Freq: Status: Active Protocol: Activity Type Activity Date Activity User E-Sign Co-Sign Detail Recorded Client Recorded Date Recorded By Document 11/27/19 14:12 DON [id number] 11/27/19 14:16 DON 11/27/19 14:12 Wound Center Nurse 2 [Procedure/Treatment] 4-RIGHT PLANTAR 5TH METATARSAL -Time 14:12 -Correct Patient No -Correct Side, Site, Position No -Correct Procedure No -Procedure Performed No -Ulcer Cleansing Rinsed/ Irrigated with Saline -Foul Odor after Cleansing No -Bioengineered Tissue No -Bleeding Controlled with Pressure -Offloading Yes -Type of Offloading Surgical Shoe -Treatment Response Procedure Tolerated Well #3 Right Lateral Foot -Time 14:12 -Correct Patient Yes -Correct Side, Site, Position Yes -Correct Procedure Yes -Procedure Performed Yes -Type of Procedure Debridement -Clinical Debridement Subcutaneous -Post Debridement Size (cm) - Length 0.5 -Post Debridement Size (cm) - Width 0.5 -Post Debridement Size (cm) - Depth 0.3 -Total Square Cm 0.25 -Wound/Ulcer Outcome Not Healed -Ulcer Cleansing Rinsed/ Irrigated with Saline -Foul Odor after Cleansing No -Bioengineered Tissue No -Bleeding Controlled with Pressure -Offloading Yes -Type of Offloading Surgical Shoe -Treatment Response Procedure Tolerated Well [See Physician Procedure note for Specifics] Pain Scale: 0-10 Numeric [Pain] -Is Patient Pain Free? Yes Musculoskeletal: No Tenderness to Palpation of Joints or Extremities, Muscle Wasting, - - Dorsal contraction verification of the fifth toe and prominent fifth metatarsal head consistent with tailor bunion Neurological: - - Lack of normal epicritic sensation light touch is consistent with neuropathy status Psych/Mental Status: Normal Affect, Appropriate Debridement Note Post-Debridement Measurements/Treatment WC - Nurse 2 - General Ulcer CM Notes Start: 11/27/19 13:49 Freq: Status: Active Protocol: Activity Type Activity Date Activity User E-Sign Co-Sign Detail Recorded Client Recorded Date Recorded By Document 11/27/19 14:12 DON [id number] 11/27/19 14:16 DON 11/27/19 14:12 Wound Center Nurse 2 4-RIGHT PLANTAR 5TH METATARSAL -Time 14:12 -Correct Patient No -Correct Side, Site, Position No -Correct Procedure No -Procedure Performed No -Ulcer Cleansing Rinsed/ Irrigated with Saline -Foul Odor after Cleansing No -Bioengineered Tissue No -Bleeding Controlled with Pressure -Offloading Yes -Type of Offloading Surgical Shoe -Treatment Response Procedure Tolerated Well #3 Right Lateral Foot -Time 14:12 -Correct Patient Yes -Correct Side, Site, Position Yes -Correct Procedure Yes -Procedure Performed Yes -Type of Procedure Debridement -Clinical Debridement Subcutaneous -Post Debridement Size (cm) - Length 0.5 -Post Debridement Size (cm) - Width 0.5 -Post Debridement Size (cm) - Depth 0.3 -Total Square Cm 0.25 -Wound/Ulcer Outcome Not Healed -Ulcer Cleansing Rinsed/ Irrigated with Saline -Foul Odor after Cleansing No -Bioengineered Tissue No -Bleeding Controlled with Pressure -Offloading Yes -Type of Offloading Surgical Shoe -Treatment Response Procedure Tolerated Well Pain Scale: 0-10 Numeric Is Patient Pain Free? Yes Wound debrided: dorsal lateral forefoot Laterality: Right Wound Grade/Stage: grade 1 Type of Debridement: Excisional debridement Anesthesia Used: 5% Lidocaine Gel Depth: in the subcutaneous layer Percentage of wound debrided: 100 Instrument Used: #15 blade Tissue Removed: fibrous, devitalized subcutaneous, biofilm, slough Severity: Fat Layer Exposed Amount of bleeding with debridement: Mild Bleeding Controlled with: Pressure Patient tolerated procedure well Assessment/Plan Active Problems (Last Reviewed 10/29/19 @ 13:50 by Logan Valdez) Tailor's bunion of right foot (Chronic) Hammer toe of right foot (Chronic) Type 1 diabetes mellitus (Chronic) Tobacco abuse (Chronic) Ulcer of right foot with fat layer exposed (Chronic) Assessment: See above diagnoses Plan: I reviewed and discussed his case with this [id number] encounter today. Subcutaneous excisional debridement was performed as noted panel. He was reassured local signs of infection and systemic illness are not noted today however I am concerned about the recurrence of this. Given his reported increase in activity and shoe gear style use, I attributed to these mechanical forces. His labs were previously reviewed with white blood cell count of 6.4, GFR over 60, C-reactive protein of 11.4, MRSA negative, and hemoglobin A1c was 10.1. To offload the ulcer site by returning to his forefoot offloading surgical shoe and put weight on his heel. He already has this in place today. To wear offloading wedge shoes when possible. To avoid excessive walking activity. He relates he will only wear Nike shoes. I advised him that the Nikes tend to run narrow and this is put a lot of pressure on his forefoot deformity. He is at risk for continued ulcers infections and amputations. I recommended extra-depth shoes with offloading liners and reassured him there are some more stylish options compared to prior years. He will consider going [facility] the [facility]. He is not ready at this time. I also discussed surgical offloading options such as excision of fifth metatarsal head. We both agreed he would be better to offload externally with appropriate shoes rather than removing parts of his foot and undergoing surgery. To elevate the limb at rest. We had a serious discussion about better glycemic control. He was advised to continue to follow-up with his awake overnight counselor and to maintain accountability for dietary choices at home. It is noted he had noninvasive vascular studies earlier this year and these demonstrated adequate flow for lower extremity healing. To continue to follow-up in the pain m anagement clinic and it is noted he is on Lyrica at this time. I do not recommend additional pain medications at this time. I answered all his questions. He is advised to follow-up in clinic in 1 week or call sooner if he has any questions or concerns. He was also advised to present to the emergency room or call the office immediately if he has worsening status or progressive local or systemic signs of infection. To continue with Lyrica that he has been placed for neuropathy and pain.
--- NOTE | 2019-12-04 16:23 | PCM.WC.PN ---
(1) Type 1 diabetes mellitus Status: Chronic Qualifiers: Diabetes mellitus complication status: with skin complications Code(s): E10.9 - Type 1 diabetes mellitus without complications (2) Tobacco abuse Status: Chronic Code(s): Z72.0 - Tobacco use (3) Ulcer of right foot with fat layer exposed Status: Chronic Code(s): L97.512 - Non-pressure chronic ulcer of other part of right foot with fat layer exposed (4) Tailor's bunion of right foot Status: Chronic Code(s): M21.621 - Bunionette of right foot (5) Hammer toe of right foot Status: Chronic Code(s): M20.41 - Other hammer toe(s) (acquired), right foot Type of Wound Date of Service: 12/04/19 Chief Complaint: Right foot ulcer History of Wound: This is a 44-year-old white male was seen on a telehealth visit today for a returned right foot ulcer. He has moderate pain. This has returned within the past week when he noticed pain and drainage on his sock. He denies measuring his temperature. He denies fever, chill, nausea, vomiting, redness, streaking or odor. He is currently being seen in the pain management clinic and is taking Lyrica. He has been doing a better job with offloading the ulcer site by wearing his specialized offloading surgical wedge shoe. Progress of Wound: Stable - Physical Exam Vital Signs Temp Pulse Resp BP 99.1 F 118 H 18 119/75 11/27/19 13:49 11/27/19 13:49 11/27/19 13:49 11/27/19 13:49 General: Alert, Oriented x3, Cooperative, No apparent distress HEENT: Atraumatic Extremities: No cyanosis, No edema - No erythema, streaking, or visualized purulence from the ulcer site noted on this telehealth visit. A picture was obtained with verbal consent. No necrosis Skin: Ulcer/ Wound Musculoskeletal: Muscle Wasting, - - Dorsal contraction varus rotation of lesser toe with prominent fifth metatarsal head anatomically Neurological: - - Lack of epicritic sensation Psych/Mental Status: Normal Affect, Appropriate Debridement Note Post-Debridement Measurements/Treatment WC - Nurse 2 - General Ulcer CM Notes Start: 11/27/19 13:49 Freq: Status: Active Protocol: Activity Type Activity Date Activity User E-Sign Co-Sign Detail Recorded Client Recorded Date Recorded By Document 11/27/19 14:12 DON [id number] 11/27/19 14:16 DON 11/27/19 14:12 Wound Center Nurse 2 4-RIGHT PLANTAR 5TH METATARSAL -Time 14:12 -Correct Patient No -Correct Side, Site, Position No -Correct Procedure No -Procedure Performed No -Ulcer Cleansing Rinsed/ Irrigated with Saline -Foul Odor after Cleansing No -Bioengineered Tissue No -Bleeding Controlled with Pressure -Offloading Yes -Type of Offloading Surgical Shoe -Treatment Response Procedure Tolerated Well #3 Right Lateral Foot -Time 14:12 -Correct Patient Yes -Correct Side, Site, Position Yes -Correct Procedure Yes -Procedure Performed Yes -Type of Procedure Debridement -Clinical Debridement Subcutaneous -Post Debridement Size (cm) - Length 0.5 -Post Debridement Size (cm) - Width 0.5 -Post Debridement Size (cm) - Depth 0.3 -Total Square Cm 0.25 -Wound/Ulcer Outcome Not Healed -Ulcer Cleansing Rinsed/ Irrigated with Saline -Foul Odor after Cleansing No -Bioengineered Tissue No -Bleeding Controlled with Pressure -Offloading Yes -Type of Offloading Surgical Shoe -Treatment Response Procedure Tolerated Well Pain Scale: 0-10 Numeric Is Patient Pain Free? Yes Wound debrided: lateral foot Laterality: Right Wound Grade/Stage: grade 1 Amount of bleeding with debridement: Mild No debridement was completed today - This is a telehealth visit Assessment/Plan Assessment: See above diagnoses Plan: I reviewed and discussed his case with this telehealth visit today. Subcutaneous excisional debridement was not performed because this is a telehealth visit. He was reassured local signs of infection and systemic illness are not noted today however I am concerned about the recurrence of this. Given his reported increase in activity and shoe gear style use, I attributed to these mechanical forces. His labs were previously reviewed with white blood cell count of 6.4, GFR over 60, C-reactive protein of 11.4, MRSA negative, and hemoglobin A1c was 10.1. To offload the ulcer site by returning to his forefoot offloading surgical shoe and put weight on his heel. To wear offloading wedge shoes when possible. To avoid excessive walking activity. He is at risk for continued ulcers infections and amputations. I recommended extra-depth shoes with offloading liners and reassured him there are some more stylish options compared to prior years. He will consider going to the diabetic shoe program at the [facility]. He is not ready at this time. I also discussed surgical offloading options such as excision of fifth metatarsal head. We both agreed he would be better to offload externally with appropriate shoes rather than removing parts of his foot and undergoing surgery. To elevate the limb at rest. We had a serious discussion about better glycemic control. 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 It is noted he had noninvasive vascular studies earlier this year and these demonstrated adequate flow for lower extremity healing. To continue to follow-up in the pain management clinic and it is noted he is on Lyrica at this time. I do not recommend additional pain medications at this time. I answered all his questions. He is advised to follow-up in clinic in 1 week or call sooner if he has any questions or concerns. He was also advised to present to the emergency room or call the office immediately if he has worsening status or progressive local or systemic signs of infection. To continue with Lyrica that he has been placed for neuropathy and pain.
== END 2019-12-27 23:59 ==
LOC: WC 09:00
PROVIDERS: PCP Internal Medicine; Referring Provider Podiatrist; Visit Provider Podiatrist
DX: E10.621 Type 1 diabetes mellitus with foot ulcer (principal); L97.512 Non-pressure chronic ulcer of other part of right foot with fat layer exposed; M21.621 Bunionette of right foot; Z72.0 Tobacco use; M20.41 Other hammer toe(s) (acquired), right foot; E10.40 Type 1 diabetes mellitus with diabetic neuropathy, unspecified
CPT/HCPCS: 11042

== ENCOUNTER 2019-12-20 10:43 | Inpatient (IN) | payer MEDICAID, SELFPAY ==
[2019-11-27 13:49] VITALS: BMI 20.5
[2019-12-17 14:37] VITALS: BMI 20.5
--- NOTE | 2019-12-19 12:54 | EKG12_ITS ---
Test Reason : PRE OP Blood Pressure : / mmHG Vent. Rate : 093 BPM Atrial Rate : 093 BPM P-R Int : 112 ms QRS Dur : 098 ms QT Int : 362 ms P-R-T Axes : 057 075 041 degrees QTc Int : 450 ms Normal sinus rhythm Normal ECG No previous ECGs available Confirmed by RAKAN WERNER, MOY ([id number]), legal editor BARBY MENDOZA ([id number]) on 12/19/2019 2:38:37 PM Referred By: Claudia Parada Confirmed By:ARGENTINA BLEDSOE MD
--- NOTE | 2019-12-19 12:55 | RAD_ITS ---
STUDY: X-RAY CHEST REASON FOR EXAM: Male, 44 years old. preop for foot sx, smoker x 20 years TECHNIQUE: PA and lateral views of the chest. COMPARISON: None. FINDINGS: The lungs are clear and expanded. There is no demonstrated pleural abnormality. Normal size heart. Normal mediastinum and clarke. Normal visualized pulmonary arteries. Normal visualized aortic arch and descending thoracic aorta. Normal visualized thoracic spine. Normal visualized ribs, clavicles, and shoulders. There is no demonstrated abnormality of the visualized soft tissue structures of the upper abdomen. RAD/Chest PA and Lateral IMPRESSION: Normal x-ray examination of the chest. Electronically Signed: Eloy Mir MD at 13:28 EDT , Service support ,
[2019-12-20] VITALS (8 sets, daily range): BP systolic 103–139; BP diastolic 71–94; PULSE 84–99; RESP 16–18; TEMP 36.6–37.1; O2SAT 95–100; BMI 19.9
--- NOTE | 2019-12-20 | BON_PTH ---
PATIENT: PIETRO MCGUIRE LOC: MS3 U#:[id number] AGE/SX: 44/M ROOM: DC310 RE12/20/[address]: Dr. Jamshid Jerry DO : 1975 BED: 1 DIS: 12/23/2019 SPEC #: [id number] RECD: 12/20/19 13:03 STATUS: ARLETTE RETamy #: [id number] YULIA: 12/20/19 00:[address]: Claudia Parada DEPT: SURGICAL PATHOLOGY RECD BY: Jean-Pierre Santacruz ENTERED: 12/20/19 13:05 SP TYPE: Bone OTHR DR: MD Dr. Benito Pérez MD Sandra Agnes, ENTRY PROCESSOR-C Tissues: A - Bone of foot, NOS B - Bone of foot, NOS Procedures: Decalcification bone/plaque Surgery Specimen Level IV HEADER OPERATION: Fifth metatarsal head resection with I & D, debridement soft tissue PRE-OP DIAGNOSIS: Cellulitis, osteomyelitis, foot ulcer TISSUE SUBMITTED: A - Metatarsal head, B - Clearance fragment MICROSCOPIC DIAGNOSIS A. Metatarsal head: A piece of bone with acute and chronic osteomyelitis. B. Clearance fragment: A piece of bone with reactive changes and negative for acute osteomyelitis. SASKIA:rosy 12/27/19 MICROSCOPIC DESCRIPTION Slides are reviewed. GROSS DESCRIPTION A - Received in fixative is one container labeled with the patient's name and designated fifth metatarsal head. The specimen consists of a piece of bone measuring 2 x 1 x 0.8 cm. The specimen is serially sectioned and submitted entirely in one cassette after decalcification. B - Received in fixative is one container labeled with the patient's name and designated clearance fragment. The specimen consists of a piece of bone measuring 1.3 x 0.5 x 0.3 cm. The entire specimen is submitted in one cassette after decalcification. / SASKIA:rosy 12/20/19 TC:2 CPT: 15081 x2, 52037 x2
[2019-12-20] MEDS: Insulin Lispro 100 UNIT/ML INSULN.PEN 10 UNIT SC (09:25)
[2019-12-20 09:36] LABS: Bedside Glucose 341 mg/dL (70-110)
--- NOTE | 2019-12-20 09:41 | RAD_ITS ---
STUDY: X-RAY - RIGHT FOOT CLINICAL: Male, 44 years old. 5TH MT HEAD RESECTION -- 4 FLUORO SEC, 3 FLUORO IMAGES, 0.0283mGy TECHNIQUE: Three limited intraoperative view(s) of the foot. COMPARISON: None. FINDINGS: Three limited intraoperative views of foot were performed as the patient has undergone amputation of the distal half of the fifth metatarsal. No intraoperative complications noted. 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
[2019-12-20] MEDS: Bupivacaine Mpf 0.5% 30 ML VIAL (09:47)
[2019-12-20] MEDS: Cefazolin 2 GM in 0.9% Normal Saline 100 ML IV (09:47)
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
[2019-12-20 11:06] LABS: Bedside Glucose 280 mg/dL (70-110)
[2019-12-20 11:06] LABS: Bedside Glucose 295 mg/dL (70-110)
[2019-12-20 11:39] LABS: Absolute Lymphocyte Count 1.81 X10^3/uL (0.83-4.51); Absolute Neutrophil Count 4.2 X10^3/uL (2.0-7.7); Basophil# 0.09 X10^3/uL; Basophil% 1.3 % (0-1); Eosinophil# 0.15 X10^3/uL; Eosinophils% 2.2 % (0-5); Hematocrit 44.8 % (40-54); Hemoglobin 14.5 g/dL (13.0-16.5); Lymphocyte # 1.81 X10^3/ul (4.0); Mean Corp Hgb Conc 32.4 g/dL (32-36); Mean Corpuscular Hgb 29.5 pg (27.0-32.0); Mean Corpuscular Volume 91.2 fL (80-94); Mean Platelet Vol. 9.5 fl (6.2-12.0); Monocyte# 0.68 X10^3/uL; Monocyte% 9.8 % (0-10); NRBC Flagged by Analyzer 0 % (0-5); Neutrophil # 4.22 X10^3/uL (2.7-7.7); Neutrophil % 60.4 % (47-70); Platelet Count 368 K/mm3 (150-450); RBC Distribution Width CV 14.6 % (11.6-14.6); RBC Distribution Width SD 48.6 fl (35.1-43.9); Red Blood Count 4.91 M/mm3 (4.6-6.2)
[2019-12-20 12:46] LABS: Bedside Glucose 263 mg/dL (70-110)
[2019-12-20] MEDS: oxyCODONE 5 MG Tablet PO ×3 (13:41→23:22)
[2019-12-20] MEDS: Acetaminophen 325 MG Tablet 650 MG PO ×2 (13:41→19:43)
--- NOTE | 2019-12-20 15:09 | PCM.HP.ID ---
Problem List (1) Osteomyelitis Status: Suspected Reason for Consult: osteo Consulted by: Dr. Parada History of Present Illness: The patient is a 44 year old M with T1DM, neuropathy, presented with worsening of R foot ulcer. Having issues since April with the foot. Frequent episodes of pain, redness, swelling, drainage; would improve with course of po abx, then worsen a week later. No fever, no n/v/d. Taken to OR 12/[address] Parada, pus drained. Full ROS performed and neg except as noted above. - Medical History Past Medical History (Chronic Problems): Chronic Problems (Last Reviewed 12/17/19 @ 14:32 by Cristina Luther) Hyperglycemia (Chronic) Malnutrition (Chronic) Tailor's bunion of right foot (Chronic) Hammer toe of right foot (Chronic) Chronic pain (Chronic) Tachycardia (Chronic) Diabetic ulcer of right foot with fat layer exposed (Chronic) Type 1 diabetes mellitus (Chronic) Tobacco abuse (Chronic) Edema of right lower extremity (Chronic) Ulcer of right foot with fat layer exposed (Chronic) Pain of right lower extremity (Chronic) Venous insufficiency of right leg (Chronic) Allergies/Adverse Reactions: Allergies No Known Allergies Allergy (Verified 12/20/19 12:39) Home Medications: Ambulatory Orders Medication Instructions Recorded Insulin Lispro [Admelog] See Protocol SQ TID PRN 07/25/19 amoxicillin 875 mg tablet 875 mg PO BID 10/29/19 ibuprofen 200 mg capsule 200 mg PO Q6H PRN 10/29/19 lancets 33 gauge See Rx Instructions .ROUTE 11/05/19 .MEDSUPPLY #100 ea pen needle, diabetic 29 gauge x See Rx Instructions .ROUTE 11/05/19 1/2 .MEDSUPPLY #100 ea Buprenorphine [Butrans 5 Mcg/Hr] 1 ea TD QWEEK 12/13/19 Diclofenac [Voltaren] 75 mg PO BIDCM 12/13/19 Insulin Degludec [Tresiba 16 unit SUBCUT DAILY 12/13/19 FlexTouch U-100] Pregabalin [Lyrica] 100 mg PO TID 12/13/19 Tizanidine HCl [Zanaflex] 4 mg PO TID 12/13/19 - Social History Tobacco Use: cigarettes Vital Signs Temp Pulse Resp BP Pulse Ox 98.2 F 99 16 127/94 H 100 12/20/19 12:09 12/20/19 12:09 12/20/19 12:09 12/20/19 12:09 12/20/19 12:09 Oxygen Flow Rate (L/min) 98 Oxygen Delivery Method Room Air Weight: 70.4 kg Body Mass Index (BMI) 19.9 Laboratory Tests Past 24 Hrs 12/20/19 11:21 WBC 7.0 RBC 4.91 Hgb 14.5 Hct 44.8 MCV 91.2 MCH 29.5 MCHC 32.4 RDW Std Deviation 48.6 H RDW Coeff of Milagro 14.6 Plt Count 368 MPV 9.5 Immature Gran % (Auto) 0.300 Neut % (Auto) 60.4 Lymph % (Auto) 26.0 [place] % (Auto) 9.8 Eos % (Auto) 2.2 Baso % (Auto) 1.3 H Absolute Neuts (auto) 4.2 Absolute Lymphs (auto) 1.81 Nucleated RBC % 0 - Other Studies Radiology: [] reviewed Other Studies: [] Route of nutrition/ use of supplements: [] Nutritional Intake: [] IV Site: [] Moreno Catheter: [] - Physical Exam General: Alert, Oriented x3, Cooperative, No apparent distress HEENT: Atraumatic, PERRLA, EOMI Neck: Supple, No Nodes Lungs: Clear to auscultation, Normal air movement Cardiovascular: Regular rate, Regular Rhythm, No murmurs Abdomen: Soft, Non Tender, Non-Distended Extremities: No edema Skin: Ulcer/ Wound - foot wrapped IV Site: Peripheral, without redness Musculoskeletal: No Tenderness to Palpation of Joints or Extremities Neurological: Cranial nerves II-XII grossly intact - Assessment/Plan Antibiotics: [] Assessment/Plan: [] Active and Suspected Problems (Last Reviewed 12/17/19 @ 14:32 by Cristina Luther) Osteomyelitis (Suspected) R foot suspected osteo - now s/p OR 12/20/[address] Parada with pus drained and partial resection of 5th met. Cx pending. Prior growth of pasteurella and staph. Will change to vanc/unasyn. Will decide re: po or iv abx based on clearance fragment and cx data. Will follow, thank you, d/w Dr. Parada.
[2019-12-20 16:35] LABS: Bedside Glucose 211 mg/dL (70-110)
[2019-12-20] MEDS: Vancomycin IV 1,000 MG/200 ML BAG 200 MG IV (17:15)
[2019-12-20] MEDS: Pregabalin 50 MG Capsule 100 MG PO ×2 (17:16→21:52)
[2019-12-20] MEDS: Insulin Lispro 100 UNIT/ML INSULN.PEN SC ×2 (17:18→21:46)
--- NOTE | 2019-12-20 18:00 | PCM.RX.CS ---
Consult Pharmacy has been consulted to manage selected antiobiotic: Vancomycin Type of Consult: New start Suspected Infection: Osteomyelitis Prior Doses of Antibiotics Received/Current Regimen: 1 DOSE OF 1000MG ADMINISTERED 12/20/19 AT 1715 Labs: VANCOMYCIN TROUGH ORDERED PRIOR TO 4TH DOSE 12/21/19 AT 1715 Weight used for dosin.4 kg Estimated Creatinine Clearance: 111 Goal Trough: 15-20 mcg/mL Pharmacy Plan for Drug Dosing: Pharmacy Service will continue to monitor and adjust dosing as required.
[2019-12-20 21:55] LABS: Bedside Glucose 266 mg/dL (70-110)
[2019-12-21] MEDS: Vancomycin IV 1,000 MG/200 ML BAG 200 MG IV ×3 (01:36→17:26)
[2019-12-21 02:00] VITALS: BP 137/84; PULSE 77; RESP 17; TEMP 36.8; O2SAT 98
[2019-12-21] MEDS: Insulin Lispro 100 UNIT/ML INSULN.PEN SC ×3 (06:25→22:18)
[2019-12-21 06:35] LABS: Bedside Glucose 255 mg/dL (70-110)
[2019-12-21] MEDS: oxyCODONE 5 MG Tablet PO ×4 (06:35→22:38)
[2019-12-21] MEDS: Pregabalin 50 MG Capsule 100 MG PO ×3 (06:35→22:11)
[2019-12-21] MEDS: Acetaminophen 325 MG Tablet 650 MG PO ×2 (06:35→17:32)
[2019-12-21 06:57] LABS: Basophil# 0.06 X10^3/uL; Basophil% 0.6 % (0-1); Eosinophil# 0.17 X10^3/uL; Eosinophils% 1.7 % (0-5); Hematocrit 46.9 % (40-54); Lymphocyte % 16.4 % (19-41); Mean Corpuscular Hgb 29.1 pg (27.0-32.0); Mean Corpuscular Volume 91.1 fL (80-94); Mean Platelet Vol. 9.3 fl (6.2-12.0); Monocyte# 0.96 X10^3/uL; Monocyte% 9.8 % (0-10); NRBC Flagged by Analyzer 0 % (0-5); Neutrophil # 6.95 X10^3/uL (2.7-7.7); Neutrophil % 71.2 % (47-70); Platelet Count 340 K/mm3 (150-450); RBC Distribution Width CV 14.5 % (11.6-14.6); Red Blood Count 5.15 M/mm3 (4.6-6.2); White Blood Count 9.8 K/mm3 (4.4-11.0)
[2019-12-21 07:27] LABS: ALB/GLOB Ratio 0.8 RATIO (0.9-2.4); AST(SGOT) 13 U/L (15-37); Alanine Aminotransfer ALT/SGPT 14 U/L (16-61); Albumin, Serum 3.1 g/dL (3.2-5.0); Alkaline Phosphatase 127 U/L (45-117); Anion Gap 8 (5-15); BUN 13 mg/dL (7-18); BUN/Creat Ratio 18.3 RATIO (10-20); Calcium,Total 8.6 mg/dL (8.5-10.1); Chloride 98 mmol/L (98-107); Creatinine, Serum 0.71 mg/dL (0.70-1.30); EST Glomerular Filtration Rate 128 mL/min (>60); Est Glom Filt Rate - Afr Amer 155 mL/min (>60); Estimated Creatinine Clearance 132.21 ml/min; Globulin 4.1 g/dL (2.2-4.2); Glucose 241 mg/dL (74-106); Potassium 4.1 mmol/L (3.5-5.1); Protein, Total 7.2 g/dL (6.4-8.2); Sodium Level 130 mmol/L (136-145)
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
[2019-12-21 08:55] VITALS: BP 148/83; PULSE 81; RESP 16; TEMP 37.2; O2SAT 98
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
[2019-12-21 11:51] LABS: Bedside Glucose 239 mg/dL (70-110)
--- NOTE | 2019-12-21 12:34 | CASEMGMT ---
RN CM Assessment Note Intro role of CM to patient in room. Patient is awake, alert and able to participate in assessment. Patient is aware if po antibiotics are not recommended, he may need IV antibiotics on dc and states he has had this before. His mother is able to assist with this at home if needed. Pt states he does not have a preference for Infusion or Home Health company. Presentation: Presented after outpt surgery on recurrent R foot ulcer. Osteomyelitis PCP: Dr. Jacinto Specialists: Dr. Parada Insurance: [facility] Preferred Pharmacy: [facility] Prescription Benefit: yes LNOK: Mother Living Arrangements: Lives in finished basement of his parents home for now. Has bedroom, bathroom available on this level. Pt states he is able to navigate stairs up to main floor. PT/OT working with him. Independent in ADL. Tranportation: drives, but mother can drive him. DME: crutches and walking shoe HHC: in the past when he lived in [place] SNF: no Patient DC Goals: Home DC Plan: anticipate home. Will need to monitor for need for IV antibiotics/Home Health on dc. Yelena NORRISN RN ACM
[2019-12-21 13:34] VITALS: BP 155/91; PULSE 81; RESP 16; TEMP 37.2; O2SAT 99
[2019-12-21 16:25] LABS: Bedside Glucose 106 mg/dL (70-110)
[2019-12-21 17:14] LABS: Vancomycin, Trough Level 13.5 ug/mL (5.0-15.0)
--- NOTE | 2019-12-21 18:21 | PCM.RX.CS ---
Consult Pharmacy has been consulted to manage selected antiobiotic: Vancomycin Type of Consult: Follow-up Labs: Sodium 130 mmol/L (136-145) L 12/21/19 06:46 Potassium 4.1 mmol/L (3.5-5.1) 12/21/19 06:46 Chloride 98 mmol/L (98-107) 12/21/19 06:46 Carbon Dioxide 24.0 mmol/L (21.0-32.0) 12/21/19 06:46 Anion Gap 8 (5-15) 12/21/19 06:46 BUN 13 mg/dL (7-18) 12/21/19 06:46 Creatinine 0.71 mg/dL (0.70-1.30) 12/21/19 06:46 Est GFR (MDRD) Af Amer 155 mL/min (>60) 12/21/19 06:46 Est GFR (MDRD) Non-Af 128 mL/min (>60) 12/21/19 06:46 BUN/Creatinine Ratio 18.3 RATIO (10-20) 12/21/19 06:46 Glucose 241 mg/dL (74-106) H 12/21/19 06:46 Vancomycin Trough 13.5 ug/mL (5.0-15.0) 12/21/19 16:35 Microbiology: Microbiology 12/20/19 10:54 Tissue - Toe Gram Stain - Final 12/20/19 10:54 Tissue - Toe Wound Culture - Preliminary No growth-Final to follow 12/20/19 10:54 Tissue - Toe Gram Stain - Final 12/20/19 10:54 Tissue - Toe Wound Culture - Preliminary No growth-Final to follow Goal Trough: 15-20 mcg/mL Pharmacy Plan for Drug Dosing: VANCOMYCIN LEVEL RECEIVED Indication: Ulcer infection S/P surgery Current Vancomycin Dose: 1000MG IV Q8hr Number of Doses Received: 3 Vancomycin Level: 13.5 Hours Since Last Dose: ~7hrs Renal Function: SCr 0.71 Renal Function Trend: slight improvement Lab/Micro: intra-op Cx pending Vancomycin Plan/Comments: The patient is currently on 1g IV Q8hr with a trough goal of 15-20. Per labs/notes, pt appears to be improving clinically. Will continue current dose of 1g IV Q8hr since trough is already 13.5 after 3 doses. If trough still subtherapeutic in 2 days, could consider increasing dose at that time. Pending Level: 12/23/19 @6996 Pharmacy Service will continue to monitor and adjust dosing as required.
[2019-12-21 18:31] VITALS: BP 129/74; PULSE 87; RESP 16; TEMP 36.7; O2SAT 99
[2019-12-21 23:01] LABS: Bedside Glucose 202 mg/dL (70-110)
[2019-12-22 00:45] VITALS: BP 133/78; PULSE 81; RESP 16; TEMP 36.6; O2SAT 98
[2019-12-22] MEDS: Vancomycin IV 1,000 MG/200 ML BAG 200 MG IV ×3 (00:45→17:49)
[2019-12-22 05:50] LABS: Absolute Lymphocyte Count 1.53 X10^3/uL (0.83-4.51); Absolute Neutrophil Count 4.9 X10^3/uL (2.0-7.7); Basophil# 0.07 X10^3/uL; Basophil% 0.9 % (0-1); Eosinophil# 0.28 X10^3/uL; Eosinophils% 3.8 % (0-5); Hematocrit 52.3 % (40-54); Hemoglobin 16.5 g/dL (13.0-16.5); Lymphocyte # 1.53 X10^3/ul (4.0); Lymphocyte % 20.6 % (19-41); Mean Corp Hgb Conc 31.5 g/dL (32-36); Mean Corpuscular Hgb 28.9 pg (27.0-32.0); Mean Corpuscular Volume 91.8 fL (80-94); Mean Platelet Vol. 9.6 fl (6.2-12.0); Monocyte# 0.66 X10^3/uL; Monocyte% 8.9 % (0-10); NRBC Flagged by Analyzer 0 % (0-5); Neutrophil # 4.85 X10^3/uL (2.7-7.7); Neutrophil % 65.5 % (47-70); Platelet Count 323 K/mm3 (150-450); RBC Distribution Width CV 14.4 % (11.6-14.6); RBC Distribution Width SD 47.8 fl (35.1-43.9); White Blood Count 7.4 K/mm3 (4.4-11.0)
[2019-12-22 06:07] LABS: ALB/GLOB Ratio 0.7 RATIO (0.9-2.4); AST(SGOT) 18 U/L (15-37); Alanine Aminotransfer ALT/SGPT 16 U/L (16-61); Albumin, Serum 3.2 g/dL (3.2-5.0); Alkaline Phosphatase 119 U/L (45-117); Anion Gap 6 (5-15); BUN 14 mg/dL (7-18); BUN/Creat Ratio 19.4 RATIO (10-20); Calcium,Total 9.5 mg/dL (8.5-10.1); Chloride 101 mmol/L (98-107); Creatinine, Serum 0.72 mg/dL (0.70-1.30); EST Glomerular Filtration Rate 126 mL/min (>60); Est Glom Filt Rate - Afr Amer 152 mL/min (>60); Estimated Creatinine Clearance 130.37 ml/min; Globulin 4.5 g/dL (2.2-4.2); Glucose 126 mg/dL (74-106); Potassium 4.1 mmol/L (3.5-5.1); Protein, Total 7.7 g/dL (6.4-8.2); Sodium Level 132 mmol/L (136-145)
[2019-12-22] MEDS: Pregabalin 50 MG Capsule 100 MG PO ×3 (06:29→21:44)
[2019-12-22] MEDS: oxyCODONE 5 MG Tablet PO ×4 (06:30→21:44)
[2019-12-22 06:45] VITALS: BP 121/81; PULSE 81; RESP 16; TEMP 36.4; O2SAT 98
[2019-12-22 06:50] LABS: Bedside Glucose 136 mg/dL (70-110)
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
[2019-12-22] MEDS: Enoxaparin 40 MG/0.4 ML Syringe SC (08:55)
--- NOTE | 2019-12-22 09:10 | PCM.PROGNOTE ---
Patient Problems: Active and Suspected Problems (Last Reviewed 12/17/19 @ 14:32 by Cristina Luther) Osteomyelitis (Suspected) Subjective: Patient was seen for right foot, no complaints. Resting comfortably in bed. No complaints of fever, chills, nausea or vomiting. - Physical Exam Vitals/I&O's: Vital Signs Temp Pulse Resp BP Pulse Ox 97.5 F L 81 16 121/81 H 98 12/22/19 06:45 12/22/19 06:45 12/22/19 06:45 12/22/19 06:45 12/22/19 06:45 Oxygen Flow Rate (L/min) 98 Oxygen Delivery Method Room Air Weight: 70.4 kg Body Mass Index (BMI) 19.9 Intake and Output for Last 24 Hours 12/20/19 12/21/19 12/22/19 23:59 23:59 23:59 Intake Total 1134 / 1134 2736 / 3096 822 / 822 Output Total 750 / 750 2300 / 3375 1450 / 1450 Balance 384 / 384 436 / -279 -628 / -628 General: Alert, Oriented x3, Cooperative, No apparent distress Extremities: Capillary Refill Less than 3 Seconds, No Calf Tenderness, - - Right foot s/p 5th met head resection - healing well, no drainage, no cellulitis, there is some edema c/w normal post op course - no fluctuance, no crepitus, no visible abscess, no streaking, sutures are intact. Psych/Mental Status: Appropriate, Alert and oriented to time, place, person, mood and affect Microbiology Past 72 Hours 12/20/19 10:54 Tissue - Toe Gram Stain - Final 12/20/19 10:54 Tissue - Toe Wound Culture - Preliminary No growth-Final to follow 12/20/19 10:54 Tissue - Toe Anaerobic Culture - Preliminary No growth in 48 hours. 12/20/19 10:54 Tissue - Toe Gram Stain - Final 12/20/19 10:54 Tissue - Toe Wound Culture - Preliminary No growth-Final to follow 12/20/19 10:54 Tissue - Toe Anaerobic Culture - Preliminary No growth in 48 hours. Laboratory Results 12/21/19 11:43: POC Glucose 239 H 12/21/19 16:09: POC Glucose 106 12/21/19 16:35: Vancomycin Trough 13.5 12/21/19 22:17: POC Glucose 202 H 12/22/19 05:22: WBC 7.4, RBC 5.70, Hgb 16.5, Hct 52.3, MCV 91.8, MCH 28.9, MCHC 31.5 L, RDW Std Deviation 47.8 H, RDW Coeff of Milagro 14.4, Plt Count 323, MPV 9.6, Immature Gran % (Auto) 0.300, Neut % (Auto) 65.5, Lymph % (Auto) 20.6, [place] % (Auto) 8.9, Eos % (Auto) 3.8, Baso % (Auto) 0.9, Absolute Neuts (auto) 4.9, Absolute Lymphs (auto) 1.53, Nucleated RBC % 0 12/22/19 05:22: Sodium 132 L, Potassium 4.1, Chloride 101, Carbon Dioxide 25.0, Anion Gap 6, BUN 14, Creatinine 0.72, Estim Creat Clear Calc 130.37, Est GFR (MDRD) Af Amer 152, Est GFR (MDRD) Non-Af 126, BUN/Creatinine Ratio 19.4, Glucose 126 H, Calcium 9.5, Total Bilirubin 0.70, AST 18, ALT 16, Alkaline Phosphatase 119 H, Total Protein 7.7, Albumin 3.2, Globulin 4.5 H, Albumin/Globulin Ratio 0.7 L 12/22/19 06:42: POC Glucose 136 H Current Medications Acetaminophen (Tylenol) 650 mg PO Q6H PRN PRN PRN Reason: Pain Score 1-10/Temp > 100.7 F Last Admin: 12/21/19 17:32 Dose: 650 mg Documented by: Dextrose (D50w Syringe) 0 gm IV X1 PRN; Protocol PRN Reason: Hypoglycemia Docusate Sodium (Colace) 100 mg PO BID PRN PRN PRN Reason: Constipation Enoxaparin Sodium (Lovenox) 40 mg SC DAILY [facility] Last Admin: 12/22/19 08:55 Dose: 40 mg Documented by: Glucagon () 1 mg IM .X1 PRN PRN Reason: Hypoglycemia Sodium Chloride () 250 mls @ 15 mls/hr IV .[id number] PRN PRN Reason: Saline Flush Last Admin: 12/21/19 20:30 Dose: 15 mls/hr Documented by: Sodium Chloride () 250 mls @ 15 mls/hr IV .[id number] PRN PRN Reason: Additional IVPB Infusion Vancomycin IV Pharmacy to Dose (1 ea/ Sodium Chloride) 500 mls @ 250 mls/hr IV PRN PRN; Protocol PRN Reason: Rx to Dose Ampicillin Sodium/Sulbactam (Sodium 3 gm/ Sodium Chloride) 112 mls @ 150 mls/hr IV Q8 [facility] Last Infusion: 12/22/19 07:34 Dose: Infused Documented by: Vancomycin HCl (Vancomycin) 1,000 mg in 200 mls @ 200 mls/hr IV Q8H [facility] Last Admin: 12/22/19 09:02 Dose: 200 mls/hr Documented by: Insulin Glargine (Lantus ([facility])) 18 units SC DAILY [facility] Last Admin: 12/22/19 08:55 Dose: 18 units Documented by: Insulin Human Lispro (Humalog Kwikpen ([facility])) 0 unit SC ACHS [facility]; Protocol Last Admin: 12/22/19 06:43 Dose: Not Given Documented by: Nutritional Formula (Travon - [place] Flavor) 1 packet PO BIDCM [facility] Last Admin: 12/22/19 08:54 Dose: 1 packet Documented by: Ondansetron HCl (Zofran) 4 mg IV Q8H PRN PRN PRN Reason: NAUSEA/VOMITING Oxycodone HCl (Oxyir) 5 mg PO Q4H PRN PRN PRN Reason: Pain Score 4-5/10 Last Admin: 12/22/19 06:30 Dose: 5 mg Documented by: Pregabalin (Lyrica) 100 mg PO TID [facility] Last Admin: 12/22/19 06:29 Dose: 100 mg Documented by: Sodium Chloride () 10 - 40 ml IV UD PRN PRN Reason: SALINE FLUSH Medical Necessity - Tobacco Use Smoking Status: Current every day smoker Tobacco Use: Cigarettes Assessment/Plan All Active Problems (Last Reviewed 12/17/19 @ 14:32 by Cristina Luther) Tobacco abuse counseling (Acute) Abscess of right foot (Acute) PVD (peripheral vascular disease) (Ruled-out) Cellulitis of right foot (Resolved) Ulcer of right foot with necrosis of muscle (Resolved) Ulcer of right foot with fat layer exposed (Acute) Right fifth metatarsal head resection on 12/20/2019 secondary to chronic right foot ulcer with current infection Osteomyelitis suspected, right foot Type 1 diabetes with hyperglycemia Tobacco use He remains afebrile and his vital signs are stable. His white blood cell count is 7.4. His wound is packed at this time with Betadine gauze. He is on IV antibiotics at this time; Unasyn and vancomycin. Continue to follow cultures, no growth so far. Infectious disease is on consult and input is greatly appreciated. A 6-week course of antibiotics, p.o. or IV, will be considered pending his microbiology and pathology clearance fragment results. This patient has had an ongoing course of intermittent infections and wound healing complications and will remain admitted at this time. He was advised to maintain a strict nonweightbearing status. Smoking cessation has been advised. Medical management per hospitalist service is greatly appreciated. Likely d/c home tomorrow.
[2019-12-22 09:11] VITALS: BP 136/89; PULSE 81; RESP 16; TEMP 36.7; O2SAT 98
[2019-12-22] MEDS: Acetaminophen 325 MG Tablet 650 MG PO (11:31)
[2019-12-22 14:54] VITALS: BP 132/81; PULSE 87; RESP 16; TEMP 37.1; O2SAT 99
[2019-12-22 15:05] LABS: Bedside Glucose 215 mg/dL (70-110)
[2019-12-22] MEDS: Insulin Lispro 100 UNIT/ML INSULN.PEN SC ×2 (17:43→21:46)
[2019-12-22 20:06] VITALS: BP 129/78; PULSE 94; RESP 16; TEMP 36.8; O2SAT 94
--- NOTE | 2019-12-22 20:12 | NURSING ---
New [place] medication patch applied to right shoulder. Previous patch to left shoulder removed and placed in sharps container.
[2019-12-22 22:06] LABS: Bedside Glucose 168 mg/dL (70-110)
[2019-12-23] MEDS: Vancomycin IV 1,000 MG/200 ML BAG 200 MG IV ×2 (01:36→09:13)
[2019-12-23] MEDS: oxyCODONE 5 MG Tablet PO ×3 (01:41→11:09)
[2019-12-23 01:42] VITALS: BP 116/75; PULSE 93; RESP 18; TEMP 37.2; O2SAT 99
[2019-12-23] MEDS: Pregabalin 50 MG Capsule 100 MG PO ×2 (06:02→13:36)
[2019-12-23] MEDS: Acetaminophen 325 MG Tablet 650 MG PO (06:08)
[2019-12-23] MEDS: Insulin Lispro 100 UNIT/ML INSULN.PEN SC ×3 (06:38→16:34)
[2019-12-23 06:51] LABS: Bedside Glucose 204 mg/dL (70-110)
[2019-12-23] MEDS: Enoxaparin 40 MG/0.4 ML Syringe SC (07:36)
[2019-12-23 07:47] VITALS: BP 123/78; PULSE 87; RESP 16; TEMP 36.8; O2SAT 100
--- NOTE | 2019-12-23 10:20 | PCM.PROGNOTE ---
Patient Problems: Active and Suspected Problems (Last Reviewed 12/17/19 @ 14:32 by Cristina Luther) Osteomyelitis (Suspected) Subjective: Patient relates to pain in foot controlled w/ pain medication. No other complaints. - Physical Exam Vitals/I&O's: Vital Signs Temp Pulse Resp BP Pulse Ox 98.3 F 87 16 123/78 H 100 12/23/19 07:47 12/23/19 07:47 12/23/19 07:47 12/23/19 07:47 12/23/19 07:47 Oxygen Flow Rate (L/min) 98 Oxygen Delivery Method Room Air Weight: 70.4 kg Body Mass Index (BMI) 19.9 Intake and Output for Last 24 Hours 12/21/19 12/22/19 12/23/19 23:59 23:59 23:59 Intake Total 2736 / 3096 2904.25 / 2904.25 631.50 / 631.50 Output Total 2300 / 3375 2550 / 2550 400 / 400 Balance 436 / -279 354.25 / 354.25 231.50 / 231.50 General: Alert, Oriented x3, Cooperative, No apparent distress Extremities: Capillary Refill Less than 3 Seconds, No Calf Tenderness, - - Right foot s/p 5th met head resection - healing well, no drainage, no cellulitis, there is some edema c/w normal post op course - no fluctuance, no crepitus, no visible abscess, no streaking, sutures are intact. Psych/Mental Status: Appropriate, Alert and oriented to time, place, person, mood and affect Microbiology Past 72 Hours 12/20/19 10:54 Tissue - Toe Gram Stain - Final 12/20/19 10:54 Tissue - Toe Wound Culture - Final No growth aerobically. 12/20/19 10:54 Tissue - Toe Anaerobic Culture - Preliminary No growth in 48 hours. 12/20/19 10:54 Tissue - Toe Gram Stain - Final 12/20/19 10:54 Tissue - Toe Wound Culture - Final No growth aerobically. 12/20/19 10:54 Tissue - Toe Anaerobic Culture - Preliminary No growth in 48 hours. Laboratory Results 12/22/19 14:57: POC Glucose 215 H 12/22/19 21:46: POC Glucose 168 H 12/23/19 06:37: POC Glucose 204 H Current Medications Acetaminophen (Tylenol) 650 mg PO Q6H PRN PRN PRN Reason: Pain Score 1-10/Temp > 100.7 F Last Admin: 12/23/19 06:08 Dose: 650 mg Documented by: Dextrose (D50w Syringe) 0 gm IV X1 PRN; Protocol PRN Reason: Hypoglycemia Docusate Sodium (Colace) 100 mg PO BID PRN PRN PRN Reason: Constipation Enoxaparin Sodium (Lovenox) 40 mg SC DAILY [facility] Last Admin: 12/23/19 07:36 Dose: 40 mg Documented by: Glucagon () 1 mg IM .X1 PRN PRN Reason: Hypoglycemia Sodium Chloride () 250 mls @ 15 mls/hr IV .[id number] PRN PRN Reason: Saline Flush Last Infusion: 12/23/19 10:16 Dose: 15 mls/hr Documented by: Sodium Chloride () 250 mls @ 15 mls/hr IV .[id number] PRN PRN Reason: Additional IVPB Infusion Vancomycin IV Pharmacy to Dose (1 ea/ Sodium Chloride) 500 mls @ 250 mls/hr IV PRN PRN; Protocol PRN Reason: Rx to Dose Ampicillin Sodium/Sulbactam (Sodium 3 gm/ Sodium Chloride) 112 mls @ 150 mls/hr IV Q8 [facility] Last Infusion: 12/23/19 07:35 Dose: Infused Documented by: Vancomycin HCl (Vancomycin) 1,000 mg in 200 mls @ 200 mls/hr IV Q8H [facility] Last Infusion: 12/23/19 10:16 Dose: Infused Documented by: Insulin Glargine (Lantus (Bkc)) 18 units SC DAILY [facility] Last Admin: 12/23/19 07:37 Dose: 18 units Documented by: Insulin Human Lispro (Humalog Kwikpen (Bk)) 0 unit SC ACHS [facility]; Protocol Last Admin: 12/23/19 06:38 Dose: 4 units Documented by: Nutritional Formula (Travon - [place] Flavor) 1 packet PO BIDCM [facility] Last Admin: 12/23/19 07:36 Dose: 1 packet Documented by: Ondansetron HCl (Zofran) 4 mg IV Q8H PRN PRN PRN Reason: NAUSEA/VOMITING Oxycodone HCl (Oxyir) 5 mg PO Q4H PRN PRN PRN Reason: Pain Score 4-5/10 Last Admin: 12/23/19 06:08 Dose: 5 mg Documented by: Pregabalin (Lyrica) 100 mg PO TID [facility] Last Admin: 12/23/19 06:02 Dose: 100 mg Documented by: Sodium Chloride () 10 - 40 ml IV UD PRN PRN Reason: SALINE FLUSH Medical Necessity - Tobacco Use Smoking Status: Current every day smoker Tobacco Use: Cigarettes Assessment/Plan All Active Problems (Last Reviewed 12/17/19 @ 14:32 by Cristina Luther) Tobacco abuse counseling (Acute) Abscess of right foot (Acute) PVD (peripheral vascular disease) (Ruled-out) Cellulitis of right foot (Resolved) Ulcer of right foot with necrosis of muscle (Resolved) Ulcer of right foot with fat layer exposed (Acute) Right fifth metatarsal head resection on 12/20/2019 secondary to chronic right foot ulcer with current infection Osteomyelitis suspected, right foot Type 1 diabetes with hyperglycemia Tobacco use He remains afebrile and his vital signs are stable. Site healing and doing wel. His wound is packed at this time with gauze. He is on IV antibiotics at this time; Unasyn and vancomycin. Continue to follow cultures, no growth so far. Infectious disease is on consult and input is greatly appreciated. A 6-week course of antibiotics, p.o. or IV, will be considered pending his microbiology and pathology clearance fragment results. This patient has had an ongoing course of intermittent infections and wound healing complications and will remain admitted at this time. He was advised to maintain a strict nonweightbearing status. Smoking cessation has been advised. Medical management per hospitalist service is greatly appreciated. Likely d/c home today pending final antibiotic recs.
[2019-12-23 11:19] VITALS: BP 111/73; PULSE 88; RESP 16; TEMP 36.5; O2SAT 98
[2019-12-23 11:21] LABS: Bedside Glucose 266 mg/dL (70-110)
--- NOTE | 2019-12-23 16:22 | PN.ID_ITS ---
Patient Problems: Active and Suspected Problems (Last Reviewed 12/17/19 @ 14:32 by Cristina Luther) Osteomyelitis (Suspected) Subjective: Feeling well, no fever, no n/v/d - Physical Exam Vitals/I&O's: Vital Signs Temp Pulse Resp BP Pulse Ox 97.7 F L 88 16 111/73 98 12/23/19 11:19 12/23/19 11:19 12/23/19 11:19 12/23/19 11:19 12/23/19 11:19 Oxygen Flow Rate (L/min) 98 Oxygen Delivery Method Room Air Weight: 70.4 kg Body Mass Index (BMI) 19.9 Intake and Output for Last 24 Hours 12/21/19 12/22/19 12/23/19 23:59 23:59 23:59 Intake Total 2736 / 3096 2904.25 / 2904.25 1194.75 / 1194.75 Output Total 2300 / 3375 2550 / 2550 800 / 800 Balance 436 / -279 354.25 / 354.25 394.75 / 394.75 General: Alert, Cooperative, No apparent distress Lungs: Clear to auscultation, Normal air movement Cardiovascular: Regular rate, Regular Rhythm Abdomen: Soft, Non Tender, Non-Distended Skin: Ulcer/ Wound - foot wrapped Microbiology Past 72 Hours 12/20/19 10:54 Tissue - Toe Gram Stain - Final 12/20/19 10:54 Tissue - Toe Wound Culture - Final No growth aerobically. 12/20/19 10:54 Tissue - Toe Anaerobic Culture - Preliminary No growth in 48 hours. 12/20/19 10:54 Tissue - Toe Gram Stain - Final 12/20/19 10:54 Tissue - Toe Wound Culture - Final No growth aerobically. 12/20/19 10:54 Tissue - Toe Anaerobic Culture - Preliminary No growth in 48 hours. Laboratory Results 12/22/19 21:46: POC Glucose 168 H 12/23/19 06:37: POC Glucose 204 H 12/23/19 11:06: POC Glucose 266 H Current Medications Acetaminophen (Tylenol) 650 mg PO Q6H PRN PRN PRN Reason: Pain Score 1-10/Temp > 100.7 F Last Admin: 12/23/19 06:08 Dose: 650 mg Documented by: Dextrose (D50w Syringe) 0 gm IV X1 PRN; Protocol PRN Reason: Hypoglycemia Docusate Sodium (Colace) 100 mg PO BID PRN PRN PRN Reason: Constipation Enoxaparin Sodium (Lovenox) 40 mg SC DAILY [facility] Last Admin: 12/23/19 07:36 Dose: 40 mg Documented by: Glucagon () 1 mg IM .X1 PRN PRN Reason: Hypoglycemia Sodium Chloride () 250 mls @ 15 mls/hr IV .[id number] PRN PRN Reason: Saline Flush Last Infusion: 12/23/19 14:26 Dose: 15 mls/hr Documented by: Sodium Chloride () 250 mls @ 15 mls/hr IV .[id number] PRN PRN Reason: Additional IVPB Infusion Vancomycin IV Pharmacy to Dose (1 ea/ Sodium Chloride) 500 mls @ 250 mls/hr IV PRN PRN; Protocol PRN Reason: Rx to Dose Ampicillin Sodium/Sulbactam (Sodium 3 gm/ Sodium Chloride) 112 mls @ 150 mls/hr IV Q8 [facility] Last Infusion: 12/23/19 14:26 Dose: Infused Documented by: Vancomycin HCl (Vancomycin) 1,000 mg in 200 mls @ 200 mls/hr IV Q8H [facility] Last Infusion: 12/23/19 10:16 Dose: Infused Documented by: Insulin Glargine (Lantus (Bk)) 18 units SC DAILY [facility] Last Admin: 12/23/19 07:37 Dose: 18 units Documented by: Insulin Human Lispro (Humalog Kwikpen ([facility])) 0 unit SC ACHS [facility]; Protocol Last Admin: 12/23/19 11:11 Dose: 6 units Documented by: Nutritional Formula (Travon - [place] Flavor) 1 packet PO BIDCM [facility] Last Admin: 12/23/19 07:36 Dose: 1 packet Documented by: Ondansetron HCl (Zofran) 4 mg IV Q8H PRN PRN PRN Reason: NAUSEA/VOMITING Oxycodone HCl (Oxyir) 5 mg PO Q4H PRN PRN PRN Reason: Pain Score 4-5/10 Last Admin: 12/23/19 11:09 Dose: 5 mg Documented by: Pregabalin (Lyrica) 100 mg PO TID [facility] Last Admin: 12/23/19 13:36 Dose: 100 mg Documented by: Sodium Chloride () 10 - 40 ml IV UD PRN PRN Reason: SALINE FLUSH Medical Necessity - Tobacco Use Smoking Status: Current every day smoker Tobacco Use: Cigarettes Route of nutrition/ use of supplements: [] Nutritional Intake: [] IV Site: [] Moreno Catheter: [] - Assessment/Plan Antibiotics: [] Assessment/Plan: [] Active and Suspected Problems (Last Reviewed 12/17/19 @ 14:32 by Cristina Luther) Osteomyelitis (Suspected) R foot suspected osteo - now s/p OR 12/20/[address] Parada with pus drained and partial resection of 5th met. Cx here so far. Prior growth of pasteurella and staph. Ok for d/c on 6 weeks po doxy and keflex. Will follow, d/w Dr. Parada. ID follow up in 2 weeks.
[2019-12-23 16:46] LABS: Bedside Glucose 171 mg/dL (70-110)
--- NOTE | 2019-12-23 16:49 | PCM.DC ---
You will use the following diet at home:: Calorie/Carbohydrate Controlled (specify 1200, 1400, etc) Your food should be the consistency of: Regular Your liquids should be the consistency of: Regular/Thin Discharge Activity: Return to Normal Activity Weight Bearing Status: No weight bearing - right foot Additional Instructions: do not change dressing Allergies/Adverse Reactions: Allergies No Known Allergies Allergy (Verified 12/20/19 12:39) Medications to take at Discharge Insulin Lispro [Admelog] See Protocol SQ TID PRN 07/25/19 lancets 33 gauge See Rx Instructions .ROUTE .MEDSUPPLY #100 ea 11/05/19 pen needle, diabetic 29 gauge x 05/30 See Rx Instructions .ROUTE .MEDSUPPLY #100 ea 11/05/19 Buprenorphine [Butrans 5 Mcg/Hr] 1 ea TD QWEEK 12/13/19 Diclofenac [Voltaren] 75 mg PO BIDCM 12/13/19 Pregabalin [Lyrica] 100 mg PO TID 12/13/19 Tizanidine HCl [Zanaflex] 4 mg PO TID 12/13/19 Cephalexin [Keflex] 500 mg PO Q8 #120 cap 12/23/19 Doxycycline 100 mg PO BID #80 cap 12/23/19 Insulin Degludec [Tresiba Flextouch U-100] 18 unit SUBCUT DAILY #1 12/23/19 Oxycodone HCl/Acetaminophen [Percocet 5-325 mg Tablet] 1 ea PO Q6H PRN 4 Days #20 tab 12/23/19 The following prescriptions were given: Doxycycline 100 mg PO BID #80 cap Transmission Status: Received by [facility] Cephalexin [Keflex] 500 mg PO Q8 #120 cap Transmission Status: Received by [facility]24 Oxycodone HCl/Acetaminophen [Percocet 5-325 mg Tablet] 1 ea PO Q6H PRN 4 Days #20 tab PRN Reason: Pain Score 4-10/10 Prescription Printed Insulin Degludec [Tresiba Flextouch U-100] 18 unit SUBCUT DAILY #1 Primary Care Physician: Tyson Jacinto MD [Primary Care Provider] - Please follow up with your Primary Care Physician in: as scheduled Test Results: Test results from this visit will be discussed in further detail at your follow-up appointment, if applicable. Please Follow Up With: Claudia Parada DPM When: office will contact you this week
--- NOTE | 2019-12-23 16:57 | DS.PCM_ITS ---
Discharge Date and Diagnosis Date of Admission: 12/20/19 Date of Discharge: 12/23/19 - Primary Discharge Diagnosis Acute Problems: right foot infection chronic right foot ulcer Type 1 uncontrolled diabetes Suspected Problems: Suspected Problems (Last Reviewed 12/17/19 @ 14:32 by Cristina Luther) Osteomyelitis (Suspected) - Secondary Discharge Diagnosis Chronic Problems: Chronic Problems (Last Reviewed 12/17/19 @ 14:32 by Cristina Luther) Hyperglycemia (Chronic) Malnutrition (Chronic) Tailor's bunion of right foot (Chronic) Hammer toe of right foot (Chronic) Chronic pain (Chronic) Tachycardia (Chronic) Diabetic ulcer of right foot with fat layer exposed (Chronic) Type 1 diabetes mellitus (Chronic) Tobacco abuse (Chronic) Edema of right lower extremity (Chronic) Ulcer of right foot with fat layer exposed (Chronic) Pain of right lower extremity (Chronic) Venous insufficiency of right leg (Chronic) Hospital Course and Treatment consults: hospitalist for hyperglycemia / medical management infectious disease Operations: - - right fifth ray resection Summary of Care Provided: The patient is a 44 year old M was admitted s/p right fifth ray resection for infection management and also for hyperglycemia management. He had right fifth metatarsal head resection performed on 12/20/2019. Microbiology and pathology specimens were obtained. He was on IV antibiotics with broad spectrum coverage. Consultants were requested. He was educated on the importance of better diabetic management and smoking cessation. He did will remaining non weightbearing with surgical shoe to the right limb. He was stabilized and discharged home on two oral antibiotics. His cultures and pathology reports will be followed in the outpatient setting. - Physical Exam Vitals/I&O's: Vital Signs Temp Pulse Resp BP Pulse Ox 97.7 F L 88 16 111/73 98 12/23/19 11:19 12/23/19 11:19 12/23/19 11:19 12/23/19 11:19 12/23/19 11:19 Oxygen Flow Rate (L/min) 98 Oxygen Delivery Method Room Air Weight: 70.4 kg Body Mass Index (BMI) 19.9 Intake and Output for Last 24 Hours 12/21/19 12/22/19 12/23/19 23:59 23:59 23:59 Intake Total 2736 / 3096 2904.25 / 2904.25 1215.75 / 1215.75 Output Total 2300 / 3375 2550 / 2550 800 / 800 Balance 436 / -279 354.25 / 354.25 415.75 / 415.75 General: Alert, Oriented x3, Cooperative HEENT: Atraumatic Lungs: Clear to auscultation Cardiovascular: Regular rate, Regular Rhythm Extremities: No cyanosis, Capillary Refill Less than 3 Seconds, No Calf Tenderness, Edema - right foot Skin: Incision - suture intact proximal (retention).open distal with packing. redness resolved post op. no purulence post operative Musculoskeletal: No Tenderness to Palpation of Joints or Extremities, Muscle Wasting, - - toe contracture right foot Neurological: - - lack of epicritic sensation via light touch is consistent with neuropathy Psych/Mental Status: Normal Affect, Appropriate Microbiology Past 72 Hours 12/20/19 10:54 Tissue - Toe Gram Stain - Final 12/20/19 10:54 Tissue - Toe Wound Culture - Final No growth aerobically. 12/20/19 10:54 Tissue - Toe Anaerobic Culture - Preliminary No growth in 48 hours. 12/20/19 10:54 Tissue - Toe Gram Stain - Final 12/20/19 10:54 Tissue - Toe Wound Culture - Final No growth aerobically. 12/20/19 10:54 Tissue - Toe Anaerobic Culture - Preliminary No growth in 48 hours. Laboratory Results 12/22/19 21:46: POC Glucose 168 H 12/23/19 06:37: POC Glucose 204 H 12/23/19 11:06: POC Glucose 266 H 12/23/19 16:32: POC Glucose 171 H Current Medications Acetaminophen (Tylenol) 650 mg PO Q6H PRN PRN PRN Reason: Pain Score 1-10/Temp > 100.7 F Last Admin: 12/23/19 06:08 Dose: 650 mg Documented by: Dextrose (D50w Syringe) 0 gm IV X1 PRN; Protocol PRN Reason: Hypoglycemia Docusate Sodium (Colace) 100 mg PO BID PRN PRN PRN Reason: Constipation Enoxaparin Sodium (Lovenox) 40 mg SC DAILY [facility] Last Admin: 12/23/19 07:36 Dose: 40 mg Documented by: Glucagon () 1 mg IM .X1 PRN PRN Reason: Hypoglycemia Sodium Chloride () 250 mls @ 15 mls/hr IV .[id number] PRN PRN Reason: Saline Flush Last Infusion: 12/23/19 16:37 Dose: Infused Documented by: Sodium Chloride () 250 mls @ 15 mls/hr IV .[id number] PRN PRN Reason: Additional IVPB Infusion Vancomycin IV Pharmacy to Dose (1 ea/ Sodium Chloride) 500 mls @ 250 mls/hr IV PRN PRN; Protocol PRN Reason: Rx to Dose Ampicillin Sodium/Sulbactam (Sodium 3 gm/ Sodium Chloride) 112 mls @ 150 mls/hr IV Q8 [facility] Last Infusion: 12/23/19 14:26 Dose: Infused Documented by: Vancomycin HCl (Vancomycin) 1,000 mg in 200 mls @ 200 mls/hr IV Q8H [facility] Last Infusion: 12/23/19 10:16 Dose: Infused Documented by: Insulin Glargine (Lantus ([facility])) 18 units SC DAILY [facility] Last Admin: 12/23/19 07:37 Dose: 18 units Documented by: Insulin Human Lispro (Humalog Kwikpen ([facility])) 0 unit SC ACHS [facility]; Protocol Last Admin: 12/23/19 16:34 Dose: 2 units Documented by: Nutritional Formula (Travon - [place] Flavor) 1 packet PO BIDCM [facility] Last Admin: 12/23/19 16:34 Dose: 1 packet Documented by: Ondansetron HCl (Zofran) 4 mg IV Q8H PRN PRN PRN Reason: NAUSEA/VOMITING Oxycodone HCl (Oxyir) 5 mg PO Q4H PRN PRN PRN Reason: Pain Score 4-5/10 Last Admin: 12/23/19 11:09 Dose: 5 mg Documented by: Pregabalin (Lyrica) 100 mg PO TID [facility] Last Admin: 12/23/19 13:36 Dose: 100 mg Documented by: Sodium Chloride () 10 - 40 ml IV UD PRN PRN Reason: SALINE FLUSH Discharge Diet: Carb Control Diet Discharge Activity: Return to Normal Activity, - - use assistive device to maintain non weightbearing right foot Weight Bearing Status: No weight bearing - right foot Keep extremity elevated above heart level: Right Leg Call your doctor if your incision/area has: Continuous Slow Oozing, Sudden Increased Bleeding, Increased Pain/ Swelling, Increased Redness, Foul Smelling Discharge, Swelling at the incision site Call your doctor if you observe: Fever of 101 or Higher, Calf discomfort, Uncontrolled pain Cleanse incision/area with: Keep Dressing Clean & Dry Home Medications: Medications to take at Discharge Insulin Lispro [Admelog] See Protocol SQ TID PRN 07/25/19 lancets 33 gauge See Rx Instructions .ROUTE .MEDSUPPLY #100 ea 11/05/19 pen needle, diabetic 29 gauge x 1/2 See Rx Instructions .ROUTE .MEDSUPPLY #100 ea 11/05/19 Buprenorphine [Butrans 5 Mcg/Hr] 1 ea TD QWEEK 12/13/19 Diclofenac [Voltaren] 75 mg PO BIDCM 12/13/19 Pregabalin [Lyrica] 100 mg PO TID 12/13/19 Tizanidine HCl [Zanaflex] 4 mg PO TID 12/13/19 Cephalexin [Keflex] 500 mg PO Q8 #120 cap 12/23/19 Doxycycline 100 mg PO BID #80 cap 12/23/19 Insulin Degludec [Tresiba Flextouch U-100] 18 unit SUBCUT DAILY #1 12/23/19 Oxycodone HCl/Acetaminophen [Percocet 5-325 mg Tablet] 1 ea PO Q6H PRN 4 Days #20 tab 12/23/19 Following Prescrptions Were Given to Patient: Doxycycline 100 mg PO BID #80 cap Transmission Status: Received by [facility] Cephalexin [Keflex] 500 mg PO Q8 #120 cap Transmission Status: Received by [facility] Oxycodone HCl/Acetaminophen [Percocet 5-325 mg Tablet] 1 ea PO Q6H PRN 4 Days #20 tab PRN Reason: Pain Score 4-10/10 Prescription Printed Insulin Degludec [Tresiba Flextouch U-100] 18 unit SUBCUT DAILY #1 Primary Care Physician: Tyson Jacinto MD [Primary Care Provider] - Please follow up with your Primary Care Physician in: as scheduled Please Follow Up With: Claudia Parada DPM When: office will contact you this week Please Follow Up With: Benito Urias MD When: 2 weeks. Call to confirm appointment time and location Disposition: Home Minutes spent on discharge:: 15 Patient Condition:: Good Medical Necessity - Tobacco Use Smoking Status: Current every day smoker Tobacco Use: Cigarettes Meaningful Use Info Meaningful Use Diagnoses (Choose all that apply): None applicable
[2019-12-23 17:48] LABS: Vancomycin, Trough Level 19.7 ug/mL (5.0-15.0)
--- NOTE | 2019-12-23 18:12 | PCM.PROGNOTE ---
Subjective: Patient was seen and examined today, I also talked with infectious diseases and podiatry briefly about his care. Infectious diseases feels the patient could be discharged on oral antibiotics and podiatry is okay with discharge. I discussed the patient's medications with him prior to discharge. - Physical Exam Vitals/I&O's: Vital Signs Temp Pulse Resp BP Pulse Ox 97.7 F L 88 16 111/73 98 12/23/19 11:19 12/23/19 11:19 12/23/19 11:19 12/23/19 11:19 12/23/19 11:19 Oxygen Flow Rate (L/min) 98 Oxygen Delivery Method Room Air Weight: 70.4 kg Body Mass Index (BMI) 19.9 Intake and Output for Last 24 Hours 12/21/19 12/22/19 12/23/19 23:59 23:59 23:59 Intake Total 2736 / 3096 2904.25 / 2904.25 1215.75 / 1215.75 Output Total 2300 / 3375 2550 / 2550 800 / 800 Balance 436 / -279 354.25 / 354.25 415.75 / 415.75 General: Alert, Oriented x3, Cooperative, No apparent distress, Well developed, Well nourished HEENT: Atraumatic, PERRLA, EOMI, Normocephalic Oral: Moist Mucosa Neck: Supple, No JVD, Trachea Midline, Thyroid Normal Size and Texture Lungs: Clear to auscultation, Normal air movement, No rhonchi, No wheeze Cardiovascular: Regular rate, Regular Rhythm, Normal S1, Normal S2, No murmurs, PMI Normal, No rub noted, No Gallop Abdomen: Bowel Sounds Present, Soft, Non Tender, Non-Distended, No hernias noted Extremities: Capillary Refill Less than 3 Seconds, - - Right lower leg is wrapped with surgical dressing, this was not removed for inspection Musculoskeletal: No Tenderness to Palpation of Joints or Extremities Neurological: Cranial nerves II-XII grossly intact, Neuro grossly intact, Sensory exam intact to light touch and pain, Coordination normal Psych/Mental Status: Normal Affect, Appropriate, Alert and oriented to time, place, person, mood and affect Microbiology Past 72 Hours 12/20/19 10:54 Tissue - Toe Gram Stain - Final 12/20/19 10:54 Tissue - Toe Wound Culture - Final No growth aerobically. 12/20/19 10:54 Tissue - Toe Anaerobic Culture - Preliminary No growth in 48 hours. 12/20/19 10:54 Tissue - Toe Gram Stain - Final 12/20/19 10:54 Tissue - Toe Wound Culture - Final No growth aerobically. 12/20/19 10:54 Tissue - Toe Anaerobic Culture - Preliminary No growth in 48 hours. Laboratory Results 12/22/19 21:46: POC Glucose 168 H 12/23/19 06:37: POC Glucose 204 H 12/23/19 11:06: POC Glucose 266 H 12/23/19 16:32: POC Glucose 171 H 12/23/19 16:50: Vancomycin Trough 19.7 H Medical Necessity - Tobacco Use Smoking Status: Current every day smoker Tobacco Use: Cigarettes Assessment/Plan All Active Problems (Last Reviewed 12/17/19 @ 14:32 by Cristina Luther) Tobacco abuse counseling (Acute) Abscess of right foot (Acute) PVD (peripheral vascular disease) (Ruled-out) Cellulitis of right foot (Resolved) Ulcer of right foot with necrosis of muscle (Resolved) Ulcer of right foot with fat layer exposed (Acute) #1 uncontrolled type 1 diabetes-patient follows up with Dr. Topher Sherman as an outpatient, I have raised his basal insulin up slightly. #2 chronic pain syndrome-patient follows up with pain management, patient was cautioned not to take Voltaren and ibuprofen at the same time, he states that he does not take ibuprofen. #3 presumed right foot osteomyelitis-ID phoned in a prescription for the patient's antibiotics. Patient will follow-up with ID in 2 weeks after discharge Inpatient E&M: [id number] [facility] L[facility]
== END 2019-12-23 17:49 | disposition home or self-care (01) | DRG 344 ==
LOC: MS3 10:43
PROVIDERS: Anesthesiology; Internal Medicine; Internal Medicine Infectious Disease; Admitting Provider Podiatrist; PCP Internal Medicine; Referring Provider Podiatrist; Visit Provider Internal Medicine
PROC: 0JBQ3ZZ Excision of Right Foot Subcutaneous Tissue and Fascia, Percutaneous Approach (ICD-10-PCS; principal; 2019-12-20 09:15)
DX: E10.621 Type 1 diabetes mellitus with foot ulcer (principal); L97.412 Non-pressure chronic ulcer of right heel and midfoot with fat layer exposed; E10.69 Type 1 diabetes mellitus with other specified complication; M86.271 Subacute osteomyelitis, right ankle and foot; M21.621 Bunionette of right foot; Z11.59 Encounter for screening for other viral diseases; M19.90 Unspecified osteoarthritis, unspecified site; E44.0 Moderate protein-calorie malnutrition; Z87.01 Personal history of pneumonia (recurrent); Z86.39 Personal history of other endocrine, nutritional and metabolic disease; Z79.4 Long term (current) use of insulin; Z79.899 Other long term (current) drug therapy; F17.210 Nicotine dependence, cigarettes, uncomplicated; E10.65 Type 1 diabetes mellitus with hyperglycemia; E10.42 Type 1 diabetes mellitus with diabetic polyneuropathy; E46 Unspecified protein-calorie malnutrition; Z68.1 Body mass index [BMI] 19.9 or less, adult; G89.4 Chronic pain syndrome
CPT/HCPCS: 36415; 71046; 73630; 76000; 80053; 80202; 82962; 85025; 87015; 87070; 87075; 87102; 87116; 87205; 87206; 87635; 88304; 88305; 88311; 93005; 97110; 97116; 97162; 97530; 97802; 99406; G2023; J7050; J7120; J0295; U0003

== ENCOUNTER → 2020-03-30 10:23 | Outpatient (CLI) | payer MEDICAID, SELFPAY ==
[2019-12-30 13:41] VITALS: BMI 19.9
[2020-03-30 13:05] LABS: AST(SGOT) 46 U/L (15-37); Alanine Aminotransfer ALT/SGPT 39 U/L (16-61); Albumin, Serum 3.5 g/dL (3.2-5.0); Alkaline Phosphatase 65 U/L (45-117); Anion Gap 10 (5-15); BUN 29 mg/dL (7-18); BUN/Creat Ratio 23.2 RATIO (10-20); Calcium,Total 8.6 mg/dL (8.5-10.1); Chloride 97 mmol/L (98-107); Creatinine, Serum 1.25 mg/dL (0.70-1.30); EST Glomerular Filtration Rate 66 mL/min (>60); Est Glom Filt Rate - Afr Amer 80 mL/min (>60); Globulin 3.6 g/dL (2.2-4.2); Glucose 351 mg/dL (74-106); Potassium 4.4 mmol/L (3.5-5.1); Protein, Total 7.1 g/dL (6.4-8.2); Sodium Level 132 mmol/L (136-145)
== END ==
PROVIDERS: PCP Internal Medicine; Referring Provider Internal Medicine; Visit Provider Internal Medicine
DX: E10.9 Type 1 diabetes mellitus without complications (principal)
CPT/HCPCS: 36415; 80053

== ENCOUNTER → 2020-04-24 11:06 | Outpatient (CLI) | payer MEDICAID, SELFPAY ==
[2020-04-02 14:11] VITALS: BMI 19.8
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
== END ==
PROVIDERS: PCP Internal Medicine; Referring Provider Anesthesiology; Visit Provider Anesthesiology
DX: M54.5 Low back pain (principal)
CPT/HCPCS: 72110

== ENCOUNTER → 2021-03-09 14:30 | Outpatient (CLI) | payer MEDICAID, SELFPAY ==
[2021-03-09 15:51] LABS: AST(SGOT) 38 U/L (15-37); Alanine Aminotransfer ALT/SGPT 45 U/L (16-61); Albumin, Serum 3.5 g/dL (3.2-5.0); Alkaline Phosphatase 60 U/L (45-117); Anion Gap 7 (5-15); BUN 15 mg/dL (7-18); BUN/Creat Ratio 12.6 RATIO (10-20); Calcium,Total 8.8 mg/dL (8.5-10.1); Chloride 98 mmol/L (98-107); Cholesterol 218 mg/dL (200); Creatinine, Serum 1.19 mg/dL (0.70-1.30); EST Glomerular Filtration Rate 70 mL/min (>60); Est Glom Filt Rate - Afr Amer 85 mL/min (>60); Globulin 3.6 g/dL (2.2-4.2); Glucose 376 mg/dL (74-106); High Density Lipoprotein 53 mg/dL; Potassium 5.5 mmol/L (3.5-5.1); Protein, Total 7.1 g/dL (6.4-8.2); Sodium Level 132 mmol/L (136-145); Thyroid Stim Hormone (TSH) 1.27 uIU/mL (0.358-3.74); Triglycerides 299 mg/dL; Very Low Density Lipoprotein 60 mg/dL (5-40)
== END ==
PROVIDERS: PCP Internal Medicine; Referring Provider Nurse Practitioner Family; Visit Provider Nurse Practitioner Family
DX: E11.9 Type 2 diabetes mellitus without complications (principal)
CPT/HCPCS: 36415; 80053; 80061; 84443

== ENCOUNTER → 2021-04-16 15:56 | Outpatient (CLI) | payer MEDICAID, SELFPAY ==
[2021-04-16 17:12] LABS: Amphetamine Urine VISTA NEGATIVE (<1000 ng/mL); Barbiturate Urine VISTA NEGATIVE (< 200 ng/mL); Benzodiazepine Urine VISTA NEGATIVE (< 200 ng/mL); Cocaine Urine VISTA NEGATIVE (< 300 ng/mL); Ecstacy Urine VISTA NEGATIVE (< 500 ng/mL); Methadone Urine VISTA NEGATIVE (< 300 ng/mL); PCP Urine VISTA NEGATIVE (< 25 ng/mL); THC Urine VISTA POSITIVE (< 50 ng/mL); Vista UDS pH Range 5
== END ==
PROVIDERS: PCP Internal Medicine; Referring Provider Anesthesiology; Visit Provider Anesthesiology
DX: F11.20 Opioid dependence, uncomplicated (principal)
CPT/HCPCS: 80307

== ENCOUNTER 2021-08-24 13:18 | Outpatient (CLI) | payer MEDICAID, SELFPAY ==
--- NOTE | 2021-08-24 13:43 | MRI_ITS ---
STUDY: MRI CERVICAL SPINE WITHOUT CONTRAST REASON FOR EXAM: Male, 46 years old. neck pain, burning TECHNIQUE: Standardized fat and water weighted pulse sequences were obtained in the sagittal and axial planes. COMPARISON: None FINDINGS: Normal foramen magnum and brainstem-cervical cord junction. Normal craniovertebral junction. Normal anterior atlantoaxial articulation. Normal odontoid process. There is straightening of the normal cervical lordosis. Normal vertebral bodies and posterior osseous elements. C2-3: Normal endplates. Diffuse disc desiccation. Normal disc height and morphology. Normal central canal and intervertebral neural foramina. C3-4: Normal endplates. Diffuse disc desiccation. Normal disc height and morphology. Normal central canal and intervertebral neural foramina. C4-5: Normal endplates. Diffuse disc desiccation. Normal disc height and morphology. Normal central canal and intervertebral neural foramina. C5-6: Mild disc space narrowing with a diffuse disc spur complex contributing to mild central canal stenosis without cord compression. Normal central canal and intervertebral neural foramina. C6-7: Normal endplates. Diffuse disc desiccation and mild disc space narrowing without significant bulging or herniation. Slight retrolisthesis of C6 on C7 of less than 2 mm. Normal central canal and intervertebral neural foramina. C7-T1: Normal endplates. Normal disc height, signal and morphology. Normal central canal and intervertebral neural foramina. Normal cervical cord. There is no demonstrated cervical cord syrinx cavity. Normal visualized soft tissue structures. MRI/Spine Cervical (Routine) IMPRESSION: 1. Multilevel degenerative changes, as described above. 2. Mild central canal stenosis at C5-C6. Electronically Signed: Max Izquierdo MD at 14:59 EDT ,
== END 2021-08-24 23:59 | disposition home or self-care (01) ==
PROVIDERS: PCP Internal Medicine; Visit Provider Anesthesiology Pain Medicine
DX: M54.12 Radiculopathy, cervical region (principal)
CPT/HCPCS: 72141

== ENCOUNTER 2021-09-06 15:32 | Outpatient (CLI) | payer MEDICAID, SELFPAY ==
[2021-09-06 16:48] LABS: AST(SGOT) 49 U/L (15-37); Alanine Aminotransfer ALT/SGPT 48 U/L (16-61); Albumin, Serum 3.9 g/dL (3.2-5.0); Alkaline Phosphatase 76 U/L (45-117); Anion Gap 5 (5-15); BUN 22 mg/dL (7-18); BUN/Creat Ratio 22.6 RATIO (10-20); Calcium,Total 9.2 mg/dL (8.5-10.1); Chloride 107 mmol/L (98-107); Creatinine, Serum 0.97 mg/dL (0.70-1.30); EST Glomerular Filtration Rate 88 mL/min (>60); Est Glom Filt Rate - Afr Amer 107 mL/min (>60); Globulin 3.9 g/dL (2.2-4.2); Glucose 70 mg/dL (74-106); Protein, Total 7.8 g/dL (6.4-8.2); Sodium Level 138 mmol/L (136-145)
== END 2021-09-06 23:59 | disposition home or self-care (01) ==
LOC: BIMLAB 15:33
PROVIDERS: PCP Internal Medicine; Visit Provider Internal Medicine
DX: E10.51 Type 1 diabetes mellitus with diabetic peripheral angiopathy without gangrene (principal)
CPT/HCPCS: 36415; 80053

== ENCOUNTER → 2022-06-27 | Outpatient (CLI) | payer MEDICAID, SELFPAY ==
[2022-06-27 16:59] LABS: ALB/GLOB Ratio 0.9 RATIO (0.9-2.4); AST(SGOT) 41 U/L (15-37); Alanine Aminotransfer ALT/SGPT 36 U/L (16-61); Albumin, Serum 3.6 g/dL (3.2-5.0); Alkaline Phosphatase 89 U/L (45-117); Anion Gap 9 (5-15); BUN 12 mg/dL (7-18); BUN/Creat Ratio 10.3 RATIO (10-20); Calcium,Total 8.9 mg/dL (8.5-10.1); Chloride 104 mmol/L (98-107); Cholesterol 137 mg/dL (200); Creatinine, Serum 1.16 mg/dL (0.70-1.30); EST Glomerular Filtration Rate 72 mL/min (>60); Est Glom Filt Rate - Afr Amer 87 mL/min (>60); Glucose 168 mg/dL (74-106); High Density Lipoprotein 65 mg/dL; Potassium 4.5 mmol/L (3.5-5.1); Protein, Total 7.6 g/dL (6.4-8.2); Sodium Level 139 mmol/L (136-145); Triglycerides 271 mg/dL; Very Low Density Lipoprotein 54 mg/dL (5-40)
== END | disposition home or self-care (01) ==
LOC: BIMLAB 14:50
PROVIDERS: PCP Internal Medicine; Visit Provider Internal Medicine
DX: E78.1 Pure hyperglyceridemia (principal)
CPT/HCPCS: 36415; 80053; 80061

== ENCOUNTER 2022-10-21 13:56 | Day surgery (SDC) | payer MEDICAID, SELFPAY ==
[2022-10-21 14:29] VITALS: BP 134/78; PULSE 89; RESP 16; TEMP 36.8; O2SAT 100; BMI 21.3
[2022-10-21] MEDS: Lactated Ringers 1,000 ML 15 ML IV (14:37)
[2022-10-21 15:10] LABS: Bedside Glucose 187 mg/dL (74-106)
--- NOTE | 2022-10-21 15:57 | PCM.DC ---
Discharge Instructions Diet Discharge Diet: No restrictions Activity Discharge Activity: May Shower (Please keep dressings clean, dry, and intact to the left leg utilize cast bag cover) Weight Bearing Status: Partial weight bearing (May be protective weightbearing to left foot in Cam boot) Keep extremity elevated above heart level: Left Leg (Elevate left leg at all times of rest for edema control) Dressing / Incision Call your doctor if you observe: Fever of 101 or Higher, Shortness of breath, Chest pain, Calf discomfort and Uncontrolled pain Change Dressing in: do not change dressing (Do not change dressing) Remove Dressing in: leave in place till F/U (Physician will change dressing at first postop appointment) Cleanse incision/area with: Do not get Incision Wet (Do not get wet utilize cast bag cover and shower) and Keep Dressing Clean & Dry (Please keep dressings clean, dry, intact to left foot with graft in place) Follow Up Care Please Follow Up With: Juve Orosco DPM When: Patient has first postop appointment in office next week Test Results: Test results from this visit will be discussed in further detail at your follow-up appointment, if applicable. Discharge Plan Admission Attending Provider: Juve Orosco Primary Care Provider: Tyson Jacinto Discharge Orders/Prescriptions Prescriptions: No Action (DME) lancets [FreeStyle Lancets] 28 gauge misc See Rx Instructions .ROUTE .MEDSUPPLY Qty: 400 3RF Rx Instructions: 4 times daily (DME) FreeStyle Lite Strips Strip See Rx Instructions .ROUTE .MEDSUPPLY Qty: 200 3RF Rx Instructions: check blood glucose 4x daily for type 2 DM medical marijauna PO MEDICAL MARIJAUNIA inhalation rosuvastatin 10 mg tablet 10 mg PO DAILY Qty: 90 3RF tadalafil [Cialis] 5 mg tablet 5 mg PO DAILY PRN (Reason: sexual activity) Qty: 30 0RF Rx Instructions: administer approximately 30min before sexual activity; do not use more than 1 dose per 24hrs insulin lispro [Humalog KwikPen Insulin] 100 unit/mL insulin pen 15 unit SC TID Qty: 40.5 1RF tizanidine 4 MG tablet 4 mg PO TID diclofenac sodium 75 MG tablet 75 mg PO BIDCM pregabalin 100 MG capsule 100 mg PO TID (DME) lancets [BD Ultra Fine Lancets] 33 gauge misc See Rx Instructions .ROUTE .MEDSUPPLY Qty: 100 4RF Rx Instructions: As directed to test blood sugar 3 + daily (DME) blood-glucose meter [OneTouch UltraMini] Kit See Rx Instructions .ROUTE .MEDSUPPLY Qty: 1 0RF Rx Instructions: As directed (DME) OneTouch Ultra Blue Test Strip Strip See Rx Instructions .ROUTE .MEDSUPPLY Qty: 100 6RF Rx Instructions: As directed (DME) lancets [OneTouch SureSoft Lancing Dev] 28 gauge misc See Rx Instructions .ROUTE .MEDSUPPLY Qty: 100 6RF Rx Instructions: As directed insulin degludec 100 unit/mL (3 mL) insulin pen 20 unit subcut DAILY 90 Days Qty: 18 1RF (DME) pen needle, diabetic [1st Tier Unifine Pentips Plus] 31 gauge x 1/4 needle See Rx Instructions .ROUTE .MEDSUPPLY Qty: 200 3RF Rx Instructions: 4x/day (DME) Omnipod 5 G6 Pods (Gen 5) Cartridge See Rx Instructions .Route Qty: 30 1RF Rx Instructions: 1 pod q 72 hrs (DME) Omnipod 5 G6 Intro Kit (Gen 5) Cartridge See Rx Instructions .Route Qty: 1 0RF Rx Instructions: As directed (DME) Dexcom G6 Sensor Device See Rx Instructions .Route Qty: 9 3RF Rx Instructions: As directed (DME) Dexcom G6 Transmitter Device See Rx Instructions .Route Qty: 1 3RF Rx Instructions: As directed Referrals / Follow Up: Tyson Jacinto MD [Primary Care Provider] - Disposition Disposition (needs filled in before D/C Order can be placed): Home, Self Care
[2022-10-21] MEDS: Bupivacaine Mpf 0.5% 30 ML VIAL (16:08)
[2022-10-21] MEDS: Lidocaine 1%/Epi 1:200 (30ml) 30 ML AMPUL (16:10)
--- NOTE | 2022-10-21 16:34 | OP.PCM_ITS ---
Problems Associated Problem List Diagnoses (1) Diabetic ulcer of left foot: (2) Non-pressure chronic ulcer of other part of left foot with fat layer exposed: (3) Type 1 diabetes mellitus: Report of Operation Date of Procedure: 10/21/22 Pre-Operative Diagnosis: 1. Chronic nonpressure ulceration lateral fifth metatarsal head left foot 2. Diabetic foot ulceration left foot 3. Diabetes mellitus type 1 Post-Operative Diagnosis: 1. Chronic nonpressure ulceration lateral fifth metatarsal head left foot 2. Diabetic foot ulceration left foot 3. Diabetes mellitus type 1 Surgery/Procedure Performed:: Debridement of ulceration with application of advanced wound care product left foot Description of Surgical Findings:: See operative note for findings Surgeon: Juve Orosco active directory architect: Kash Herrera DPM PGY-1 Type of Anesthesia: Local (10 cc one-to-one mixture 1% lidocaine plain and 0.5% Marcaine plain) Specimen's removed: None Drains: None Estimated Blood Loss (mL): < 2mL Description of Procedure: HPI/indication: This is a 47-year-old male who has been following in the office for left foot ulceration x2 and he had healed these ulcerations however surgical shoe caused irritation to the lateral left foot creating ulceration overlying the lateral fifth metatarsal head. He was transferred into a cam walker and he had undergone serial debridement of this ulceration with application of May and was noted to have some improvement and reduction in size. Radiographic images were obtained and no osteomyelitis was present. On examination there was no evidence of exposure of bone nor did the ulcer probe to bone. However this wound was slower to heal over the last 6 weeks and due to the nature of the wound and proximity overlying the fifth metatarsal head laterally I discussed with him going into the operating room for debridement of the wound with application of an advanced wound care product. Patient was amendable to this. I discussed with him the risks and benefits of the procedure and the nature of the advanced wound care product in detail. Discussed with him that this would aid in wound healing. Patient was agreeable to undergo procedure with application of the advanced wound care product. Consent forms were signed freely by patient. No promises were made. No guarantees were made. Reviewed all diagnostic prior to procedure. Operative limb signed prior to entering the OR. Patient was scheduled to undergo debridement of chronic ulceration of the left foot ulceration with an application of advanced wound care product on 10/21/2022 at [facility]. Procedure: Patient was brought into the operating room and transferred to the table in the supine position. Following timeout with operative limb and procedure identified the foot was then scrubbed, prepped, and draped in the usual aseptic manner. A local anesthetic block was then performed about the ulcerative site of the left foot consisting of 10 cc one-to-one mixture of 1% lidocaine plain and 0.5% Marcaine plain. At this time attention was directed to the left lateral foot overlying the fifth metatarsal head where an ulceration is noted. Ulceration is noted to be a Gonzales stage I. Predebridement measurements of wound are as follows: 1.8 cm x 1.4 cm x 0.2 cm. Next, a curette was utilized to debride the wound in an excisional sharp debridement down to the level of the subcutaneous tissue removing all fibrous, devitalized subcutaneous, biofilm, slough. There was noted to be a small area of tunneling on the wound 0.2 cm at the 6 o'clock position. 100% of the ulceration was debrided. No purulent drainage and no malodor noted. Healthy, bleeding, viable tissue was noted postdebridement. Hemostasis was achieved with pressure and gauze. Postdebridement wound measurements are as follows: 1.9 cm x 1.5 cm x 0.2 cm. Next, 500 mg of advanced wound care product, Axiofill was applied ulcerative site and packed along the tunnel track. The site was dressed with Adaptic, Steri-Strips, 4 x 4 gauze, Kerlix, 4 inch Bernard wrap. Patient tolerated the procedure and local anesthesia well and was transported to same-day surgery with vascular status intact to the digits of the left foot. Discharge instructions were printed for patient to keep the dressings clean, dry, and intact to the left lower extremity and utilize cast bag during shower. He is to leave dressings intact with graft product in place. He was instructed that he is permitted to change outer dressings as needed for strikethrough. Recommend continued use of his cam boot. He will follow-up in the office next week for continued local wound care. Grafts/Implants Used: 500 mg Axiofill Complications None Admit VTE Documentation VTE Present on Admission: No VTE Mechan Device Prophylaxis: SCD's VTE Pharm Prophylaxis ordered?: No Reason prophylaxis not ordered:: Procedure Not Indicated
== END 2022-10-21 17:02 | disposition home or self-care (01) ==
LOC: SDC 13:56 → AC 13:57
PROVIDERS: PCP Internal Medicine; Referring Provider Student in an Organized Health Care Education/Training Program; Visit Provider Student in an Organized Health Care Education/Training Program
PROC: (CPT 11042; principal; 2022-10-21 15:15)
DX: E10.621 Type 1 diabetes mellitus with foot ulcer (principal); L97.522 Non-pressure chronic ulcer of other part of left foot with fat layer exposed; Z79.4 Long term (current) use of insulin; G89.29 Other chronic pain; M54.2 Cervicalgia; F17.200 Nicotine dependence, unspecified, uncomplicated; Z79.899 Other long term (current) drug therapy
CPT/HCPCS: 11042; 15275; 00400; 82962; J7120

== ENCOUNTER → 2023-09-18 | Outpatient (CLI) | payer MEDICAID, SELFPAY ==
[2023-09-18 12:08] LABS: Absolute Lymphocyte Count 1.65 X10^3/uL (0.83-4.51); Absolute Neutrophil Count 3.7 X10^3/uL (2.0-7.7); Basophil# 0.05 X10^3/uL; Basophil% 0.8 % (0-1); Eosinophil# 0.12 X10^3/uL; Eosinophils% 1.9 % (0-5); Hematocrit 44.2 % (40-54); Hemoglobin 14.5 g/dL (13.0-16.5); Lymphocyte # 1.65 X10^3/ul (0.83-4.51); Lymphocyte % 26.1 % (19-41); Mean Corp Hgb Conc 32.8 g/dL (32-36); Mean Corpuscular Hgb 30.9 pg (27.0-32.0); Mean Corpuscular Volume 94.2 fL (80-94); Mean Platelet Vol. 9.7 fl (6.2-12.0); Monocyte# 0.77 X10^3/uL; Monocyte% 12.2 % (0-10); NRBC Flagged by Analyzer 0 % (0-5); Neutrophil % 58.5 % (47-70); Platelet Count 296 K/mm3 (150-450); RBC Distribution Width CV 15.4 % (11.6-14.6); RBC Distribution Width SD 53.5 fl (35.1-43.9); Red Blood Count 4.69 M/mm3 (4.6-6.2); White Blood Count 6.3 K/mm3 (4.4-11.0)
[2023-09-18 12:38] LABS: ALB/GLOB Ratio 0.8 RATIO (0.9-2.4); AST(SGOT) 31 U/L (15-37); Alanine Aminotransfer ALT/SGPT 23 U/L (16-61); Albumin, Serum 3.4 g/dL (3.2-5.0); Alkaline Phosphatase 78 U/L (45-117); Anion Gap 9 (5-15); BUN 10 mg/dL (7-18); BUN/Creat Ratio 11.9 RATIO (10-20); Calcium,Total 9.5 mg/dL (8.5-10.1); Chloride 103 mmol/L (98-107); Cholesterol 236 mg/dL (200); Creatinine, Serum 0.84 mg/dL (0.70-1.30); EST Glomerular Filtration Rate 104 mL/min (>60); Est Glom Filt Rate - Afr Amer 126 mL/min (>60); Globulin 4.1 g/dL (2.2-4.2); Glucose 210 mg/dL (74-106); High Density Lipoprotein 94 mg/dL; Potassium 3.3 mmol/L (3.5-5.1); Protein, Total 7.5 g/dL (6.4-8.2); Sodium Level 137 mmol/L (136-145); Triglycerides 116 mg/dL; Very Low Density Lipoprotein 23 mg/dL (5-40)
== END | disposition home or self-care (01) ==
LOC: BIMLAB 11:20
PROVIDERS: PCP Internal Medicine; Visit Provider Internal Medicine
DX: E78.5 Hyperlipidemia, unspecified (principal); E10.9 Type 1 diabetes mellitus without complications
CPT/HCPCS: 36415; 80053; 80061; 85025

== ENCOUNTER → 2025-03-31 | Outpatient (CLI) | payer MEDICAID, SELFPAY | END | disposition home or self-care (01) | LOC: LABSPEC 17:03 | PROVIDERS: PCP Internal Medicine; Visit Provider Student in an Organized Health Care Education/Training Program | DX: L97.522 Non-pressure chronic ulcer of other part of left foot with fat layer exposed (principal); L03.116 Cellulitis of left lower limb | CPT/HCPCS: 87070; 87075; 87205 ==

== ENCOUNTER → 2025-05-07 | Outpatient (CLI) | payer MEDICAID, SELFPAY ==
[2025-05-07 12:26] LABS: Hematocrit 40.8 % (40-54); Hemoglobin 13.6 g/dL (13.0-16.5); Immature Granulocytes Count 0.020 X10^3/uL (0.0-0.0); Mean Corp Hgb Conc 33.3 g/dL (32-36); Mean Corpuscular Volume 93.6 fL (80-94); Mean Platelet Vol. 10.4 fl (6.2-12.0); NRBC Flagged by Analyzer 0 % (0-5); Platelet Count 200 K/mm3 (150-450); RBC Distribution Width CV 14.6 % (11.6-14.6); RBC Distribution Width SD 50.5 fl (35.1-43.9); Red Blood Count 4.36 M/mm3 (4.6-6.2); White Blood Count 7.5 K/mm3 (4.4-11.0)
[2025-05-07 13:08] LABS: AST(SGOT) 34 U/L (<=37); Alanine Aminotransfer ALT/SGPT 16 U/L (<=46); Albumin, Serum 4.0 g/dL (3.5-5.0); Alkaline Phosphatase 82 U/L (40-129); Anion Gap 12 (5-15); BUN 12 mg/dL (4-19); BUN/Creat Ratio 15.3 RATIO (10-20); Calcium,Total 9.6 mg/dL (7.6-11.0); Carbon Dioxide 25.4 mmol/L (21.0-32.0); Chloride 100 mmol/L (98-108); Cholesterol 188 mg/dL (<=200); Globulin 3.1 g/dL (2.2-4.2); Glucose 96 mg/dL (70-99); Low Density Lipoprotein Calc. 84 mg/dL; Potassium 4.3 mmol/L (3.3-5.1); Triglycerides 94 mg/dL; Very Low Density Lipoprotein 19 mg/dL (5-40); cholesterol:hdl ratio screen 2.16
== END | disposition home or self-care (01) ==
LOC: MTLAB 11:13
PROVIDERS: PCP Internal Medicine; Referring Provider Internal Medicine; Visit Provider Internal Medicine
DX: E10.51 Type 1 diabetes mellitus with diabetic peripheral angiopathy without gangrene (principal)
CPT/HCPCS: 36415; 80053; 80061; 85025